=== PATIENT | female | born 1960 | race Caucasian/White ===

== ENCOUNTER → 2017-11-14 16:51 | Outpatient (CLI) | payer OTHER, SELFPAY ==
[2017-11-14 18:38] LABS: Thyroid Stim Hormone (TSH) 3.49 uIU/mL (0.358-3.74)
== END ==
PROVIDERS: Family Provider Family Medicine; PCP Family Medicine; Visit Provider Family Medicine
DX: E03.9 Hypothyroidism, unspecified (principal)
CPT/HCPCS: 36415; 84443

== ENCOUNTER → 2018-04-17 12:47 | Outpatient (CLI) | payer OTHER, SELFPAY ==
[2018-04-17 14:20] LABS: Absolute Lymphocyte Count 2.32 X10^3/ul (0.83-4.51); Absolute Neutrophil Count 4.4 X10^3/uL (2.0-7.7); Basophil# 0.06 X10^3/uL; Basophil% 0.8 % (0-1); Eosinophil# 0.15 X10^3/uL; Hematocrit 39.4 % (37-47); Hemoglobin 13.3 g/dl (12.0-15.0); Lymphocyte # 2.32 X10^3/ul (4.0); Lymphocyte % 30.2 % (19-41); Mean Corp Hgb Conc 33.8 g/gl (32-36); Mean Corpuscular Volume 94.7 fL (81-99); Mean Platelet Vol. 10.6 fl (6.2-12.0); Monocyte# 0.77 X10^3/uL; Neutrophil # 4.37 X10^3/uL (2.7-7.7); Neutrophil % 56.7 % (47-70); Platelet Count 285 K/mm3 (150-450); RBC Distribution Width CV 13.5 % (11.6-14.6); RBC Distribution Width SD 45.1 fl (35.1-43.9); Red Blood Count 4.16 M/mm3 (4.2-5.4); White Blood Count 7.7 K/mm3 (4.4-11.0)
[2018-04-17 14:29] LABS: POSITIVE COUNT NO; POSITIVE DIFFERENTIAL NO; POSITIVE MORPHOLOGY NO
[2018-04-17 14:39] LABS: ALB/GLOB Ratio 1.1 RATIO (0.9-2.4); AST(SGOT) 26 U/L (15-37); Alanine Aminotransfer ALT/SGPT 22 U/L (13-56); Albumin, Serum 4.2 g/dL (3.2-5.0); Alkaline Phosphatase 72 U/L (45-117); Anion Gap 8 (5-15); BUN 14 mg/dL (7-18); BUN/Creat Ratio 17.7 RATIO (10-20); Calcium,Total 9.2 mg/dL (8.5-10.1); Chloride 103 mmol/L (98-107); Creatinine, Serum 0.79 mg/dL (0.55-1.02); EST Glomerular Filtration Rate 79 mL/min (>60); Est Glom Filt Rate - Afr Amer 96 mL/min (>60); Globulin 3.7 g/dL (2.2-4.2); Glucose 104 mg/dL (74-106); Potassium 3.8 mmol/L (3.5-5.1); Protein, Total 7.9 g/dL (6.4-8.2); Sodium Level 140 mmol/L (136-145)
== END ==
PROVIDERS: Family Provider Family Medicine; PCP Family Medicine; Visit Provider Internal Medicine Rheumatology
DX: M06.4 Inflammatory polyarthropathy (principal); M18.11 Unilateral primary osteoarthritis of first carpometacarpal joint, right hand; E03.9 Hypothyroidism, unspecified; E78.5 Hyperlipidemia, unspecified
CPT/HCPCS: 36415; 80053; 85025

== ENCOUNTER → 2018-05-31 06:50 | Outpatient (CLI) | payer OTHER, SELFPAY ==
[2018-05-31 07:39] LABS: Cholesterol 225 mg/dL (200); High Density Lipoprotein 74 mg/dL; Triglycerides 130 mg/dL; Very Low Density Lipoprotein 26 mg/dL (5-40)
== END ==
PROVIDERS: Family Provider Family Medicine; PCP Family Medicine; Visit Provider Family Medicine
DX: E03.9 Hypothyroidism, unspecified (principal); E78.00 Pure hypercholesterolemia, unspecified
CPT/HCPCS: 36415; 80061; 84443

== ENCOUNTER 2018-06-20 05:51 | Day surgery (SDC) | payer OTHER, SELFPAY ==
[2018-06-20] VITALS (10 sets, daily range): BP systolic 115–128; BP diastolic 76–84; PULSE 61–82; RESP 16; TEMP 36.1–36.6; O2SAT 94–99; BMI 25.4
--- NOTE | 2018-06-20 | CER_PTH ---
PATIENT: PATTI [place]BELL [place] [facility] [place][id number] AGE/SX: 58/F ROOM: RE06/20/[address]: Dr. Herman Ramirez MD : [id number] BED: DIS: 06/20/2018 SPEC #: [id number] RECD: 06/20/18 12:47 STATUS: CARLIN GOLDEN #: [id number] TRUDY: 06/20/18 00:[address]: Herman Ramirez DEPT: SURGICAL PATHOLOGY RECD BY: Carlitos Butcher ENTERED: 06/20/18 12:47 SP TYPE: CERV OTHR DR: Dr. Adam Tate MD Tissues: A - Uterine cervix, NOS B - Endocervical Procedures: Surgery Specimen Level IV Surgery Specimen Level V HEADER OPERATION: Cold knife conization PRE-OP DIAGNOSIS: High grade squamous intraepithelial lesion TISSUE SUBMITTED: A ? Cervical cone biopsy, B ? Endocervical curettings MICROSCOPIC DIAGNOSIS A. Cervix, cone biopsy: Chronic inflammation. Negative for dysplasia. B. Endocervical curettings: Desquamated benign ecto- and endocervical epithelial cells, blood and mucous, negative for dysplasia. See comment. SJ:rg 06/21/18 COMMENT Clinical correlation and appropriate follow up are necessary. B. The specimen predominantly consists of blood and mucous. MICROSCOPIC DESCRIPTION Slides are reviewed. GROSS DESCRIPTION A - Received in fixative is one container labeled with the patient's name and designated cervical cone biopsy. The specimen consists of a piece of sheets, indurated tissue consistent with cone biopsy measuring 2.8 x 2.5 cm and up to 2 cm in length. The mucosa is congested. The nonmucosal surface is inked black. The endocervical margin is inked blue. No mass lesion is identified. The specimen is serially sectioned and submitted entirely in eight cassettes as follows: 1 & 2 ? one quadrant, 3 & 4 ? second quadrant, 5 & 6 ? third quadrant, 7 & 8 ? fourth quadrant. B - Received in fixative is one container labeled with the patient's name and designated endocervical curettings. The specimen consists of multiple fragments of hemorrhagic tissue mixed with blood clot that in aggregate measure 1.5 x 1 x 0.1 cm. The specimen is totally submitted in one cassette. / SINGH:zay 06/20/18 TC:3 CPT: 86623, 29963
--- NOTE | 2018-06-20 06:00 | EKG12_ITS ---
Test Reason : PRE-OP Blood Pressure : / mmHG Vent. Rate : 064 BPM Atrial Rate : 064 BPM P-R Int : 184 ms QRS Dur : 094 ms QT Int : 438 ms P-R-T Axes : 069 075 062 degrees QTc Int : 451 ms Normal sinus rhythm Nonspecific ST abnormality Abnormal ECG When compared with ECG of 14-SEP-2014 15:28, No significant change was found Confirmed by SLIM COWAN, TANVIR ([id number]), communications editor JONATHAN QUACH ([id number]) on 06/24/2018 4:01:37 PM Referred By: Herman Ramirez Confirmed By:TANVIR SMALLS MD
[2018-06-20 06:28] LABS: Hematocrit 36.4 % (37-47); Hemoglobin 12.2 g/dl (12.0-15.0); Mean Corp Hgb Conc 33.5 g/gl (32-36); Mean Corpuscular Hgb 31.3 pg (27.0-32.0); Mean Corpuscular Volume 93.3 fL (81-99); Platelet Count 266 K/mm3 (150-450); RBC Distribution Width CV 13.6 % (11.6-14.6); RBC Distribution Width SD 46.1 fl (35.1-43.9); White Blood Count 6.4 K/mm3 (4.4-11.0)
[2018-06-20 06:30] LABS: Scan Indicated on CBC? Y/N NO
[2018-06-20 06:46] LABS: ALB/GLOB Ratio 1.2 RATIO (0.9-2.4); AST(SGOT) 21 U/L (15-37); Alanine Aminotransfer ALT/SGPT 20 U/L (13-56); Albumin, Serum 3.8 g/dL (3.2-5.0); Alkaline Phosphatase 63 U/L (45-117); Anion Gap 8 (5-15); BUN 19 mg/dL (7-18); BUN/Creat Ratio 25.3 RATIO (10-20); Calcium,Total 9.2 mg/dL (8.5-10.1); Chloride 105 mmol/L (98-107); Creatinine, Serum 0.75 mg/dL (0.55-1.02); EST Glomerular Filtration Rate 83 mL/min (>60); Est Glom Filt Rate - Afr Amer 101 mL/min (>60); Estimated Creatinine Clearance 68.88 ml/min; Globulin 3.3 g/dL (2.2-4.2); Glucose 94 mg/dL (74-106); Potassium 3.3 mmol/L (3.5-5.1); Protein, Total 7.1 g/dL (6.4-8.2); Sodium Level 142 mmol/L (136-145)
[2018-06-20] MEDS: Bupiv/Epi 0.5% Mpf 30 ML Vial (07:42)
--- NOTE | 2018-06-20 08:33 | PCM.DC.D&C ---
Discharge Diet: No Restrictions Discharge Activity: Return to Normal Activity - AFTER 24 hours May resume sexual activity in: 4-6 weeks - after OK by Weight Bearing Status: Weight bearing as tolerated Call your doctor if your incision/area has: Increased Pain/ Swelling, Increased Redness, Foul Smelling Discharge, Swelling at the incision site Call your doctor if you observe: Fever of 101 or Higher, Coldness, Increased Pain, Numbness or Tingling, Change in Color, Inability to urinate, Inability to have a bowel movement, Using more than one pad per hour, Shortness of breath, Fainting spells, Chest pain, Increased palpitations (irregular heartbeat), Uncontrolled pain Additional Instructions: PROCEDURE: Cold Knife Conization of Cervix Allergies/Adverse Reactions: Allergies No Known Allergies Allergy (Verified 06/14/18 15:04) Medications to take at Discharge Atorvastatin Calcium [Lipitor] 10 mg PO QHS 06/14/18 Hydroxychloroquine Sulfate [Plaquenil] 200 mg PO BID 06/14/18 Levothyroxine [Synthroid] 125 mcg PO DAILY 06/14/18 Lisinopril/Hydrochlorothiazide [Zestoretic 20/12.5 Tablet] 1 tablet PO DAILY 06/14/18 Paroxetine HCl [Paxil] 25 mg PO DAILY 06/14/18 Primary Care Physician: Adam Tate MD [Primary Care Provider] - Test Results: Test results from this visit will be discussed in further detail at your follow-up appointment, if applicable.
--- NOTE | 2018-06-20 08:36 | DCINST_ITS ---
Discharge Diet: No Restrictions Discharge Activity: Return to Normal Activity - AFTER 24 hours May resume sexual activity in: 4-6 weeks - after OK by Weight Bearing Status: Weight bearing as tolerated Call your doctor if your incision/area has: Increased Pain/ Swelling, Increased Redness, Foul Smelling Discharge, Swelling at the incision site Call your doctor if you observe: Fever of 101 or Higher, Coldness, Increased Pain, Numbness or Tingling, Change in Color, Inability to urinate, Inability to have a bowel movement, Using more than one pad per hour, Shortness of breath, Fainting spells, Chest pain, Increased palpitations (irregular heartbeat), Uncontrolled pain Additional Instructions: PROCEDURE: Cold Knife Conization of Cervix Allergies/Adverse Reactions: Allergies No Known Allergies Allergy (Verified 06/14/18 15:04) Medications to take at Discharge Atorvastatin Calcium [Lipitor] 10 mg PO QHS 06/14/18 Hydroxychloroquine Sulfate [Plaquenil] 200 mg PO BID 06/14/18 Levothyroxine [Synthroid] 125 mcg PO DAILY 06/14/18 Lisinopril/Hydrochlorothiazide [Zestoretic 20/12.5 Tablet] 1 tablet PO DAILY 04/24 Paroxetine HCl [Paxil] 25 mg PO DAILY 06/14/18 Primary Care Physician: Adam Tate MD [Primary Care Provider] - Test Results: Test results from this visit will be discussed in further detail at your follow- up appointment, if applicable.
--- NOTE | 2018-06-20 08:36 | PCM.OPRPT ---
Report of Operation Date of Procedure: 06/20/18 Pre-Operative Diagnosis: RONALD 2 Post-Operative Diagnosis: RONALD 2 Surgery/Procedure Performed:: Cold knife conization of cervix with endocervical curettage Description of Surgical Findings:: None staining area of cervix after lugols placed consistent with cervical dysplasia Type of Anesthesia:: Local MAC Specimen's removed: Cervical cone, ECC Estimated Blood Loss (mL): 50ml Fluids Replaced: 900ml Description of Procedure: Patient taken to OR where MAC anesthesia placed. She was placed in the dorsal lithotomy position, prepped & draped. A tenaculum was used to grasp the anterior lip of cervix. Paracervical block given. Stay sutures placed on 3 & 9 o'clock. Lugols placed on cervix. Cervix incised circumferentially with a scalpel. Cervical cone completed with curved jon scissors. ECC performed. Roller ball cautery used to obtain excellent hemostasis. Stay sutures tied. Fibrillar placed to ensure continued hemostasis due to the large cervical cone site. At end of procedure all instruments removed from vaginal cavity. Vaginal sweep performed. Patient tolerated procedure well. - Complications None
[2018-06-20] MEDS: Acetaminophen/Codeine #3 Tablet 1 TABLET PO (10:02)
== END 2018-06-20 10:46 | disposition home or self-care (01) ==
LOC: SDC 05:52 → AC 05:53
PROVIDERS: Family Provider Family Medicine; PCP Family Medicine; Visit Provider Obstetrics & Gynecology
PROC: 0UBC7ZZ Excision of Cervix, Via Natural or Artificial Opening (ICD-10-PCS; CPT 57520; principal; 2018-06-20 07:15)
DX: N72 Inflammatory disease of cervix uteri (principal); E03.9 Hypothyroidism, unspecified; M19.90 Unspecified osteoarthritis, unspecified site; E78.00 Pure hypercholesterolemia, unspecified; F41.0 Panic disorder [episodic paroxysmal anxiety]; F32.9 Major depressive disorder, single episode, unspecified; Z86.2 Personal history of diseases of the blood and blood-forming organs and certain disorders involving the immune mechanism; Z79.899 Other long term (current) drug therapy; Z87.891 Personal history of nicotine dependence
CPT/HCPCS: 57520; 36415; 80053; 85027; 86850; 86900; 88305; 88307; 93005; J7120; J2405

== ENCOUNTER → 2019-02-27 14:16 | Outpatient (CLI) | payer OTHER, SELFPAY ==
[2019-02-27 09:39] VITALS: BMI 25.1
== END ==
PROVIDERS: Family Provider Family Medicine; PCP Family Medicine; Referring Provider Physician Assistant; Visit Provider Physician Assistant
DX: J20.9 Acute bronchitis, unspecified (principal)
CPT/HCPCS: 87081

== ENCOUNTER → 2019-06-18 | Outpatient (CLI) | payer OTHER, SELFPAY ==
[2019-02-27 09:39] VITALS: BMI 25.1
[2019-06-18 11:06] LABS: Anion Gap 4 (5-15); BUN 22 mg/dL (7-18); BUN/Creat Ratio 30.2 RATIO (10-20); Calcium,Total 9.6 mg/dL (8.5-10.1); Chloride 107 mmol/L (98-107); Cholesterol 251 mg/dL (200); Creatinine, Serum 0.73 mg/dL (0.55-1.02); EST Glomerular Filtration Rate 86 mL/min (>60); Est Glom Filt Rate - Afr Amer 104 mL/min (>60); Glucose 92 mg/dL (74-106); High Density Lipoprotein 72 mg/dL; Sodium Level 142 mmol/L (136-145); Thyroid Stim Hormone (TSH) 1.68 uIU/mL (0.358-3.74); Triglycerides 135 mg/dL; Very Low Density Lipoprotein 27 mg/dL (5-40)
== END | disposition home or self-care (01) ==
LOC: MTLAB 08:10
PROVIDERS: Family Provider Family Medicine; PCP Family Medicine; Referring Provider Family Medicine; Visit Provider Family Medicine
DX: E78.00 Pure hypercholesterolemia, unspecified (principal); E03.9 Hypothyroidism, unspecified; I10 Essential (primary) hypertension
CPT/HCPCS: 36415; 80048; 80061; 84443

== ENCOUNTER → 2020-04-19 | Outpatient (CLI) | payer OTHER, SELFPAY ==
[2019-02-27 09:39] VITALS: BMI 25.1
--- NOTE | 2020-04-19 12:25 | RAD_ITS ---
STUDY: X-RAY - LEFT HAND, ATTENTION FIRST FINGER REASON FOR EXAM: Female, 60 years old. pain to DIP joint TECHNIQUE: 3 view(s) of the finger were obtained. COMPARISON: None. FINDINGS: There are mild arthritic changes of the first metacarpal greater multangular joint, first metacarpophalangeal joint, and first interphalangeal joint. There is no evidence of fracture or dislocation. Soft tissues are unremarkable. RAD/Finger(s) Min 2 Views IMPRESSION: Degenerative joint disease, as described above. Electronically Signed: Lance Betancourt MD at 23:38 EDT , Service support ,
== END | disposition home or self-care (01) ==
LOC: MTRAD 12:24
PROVIDERS: Referring Provider Family Medicine; Visit Provider Family Medicine
DX: M79.645 Pain in left finger(s) (principal)
CPT/HCPCS: 73140

== ENCOUNTER → 2020-04-20 | Outpatient (CLI) | payer OTHER, SELFPAY ==
[2019-02-27 09:39] VITALS: BMI 25.1
[2020-04-20 09:53] LABS: Hematocrit 39.5 % (37-47); Hemoglobin 13.1 g/dL (12.0-15.0); Mean Corp Hgb Conc 33.2 g/dL (32-36); Mean Corpuscular Hgb 32.8 pg (27.0-32.0); Mean Corpuscular Volume 98.8 fL (81-99); Mean Platelet Vol. 10.8 fl (6.2-12.0); Platelet Count 338 K/mm3 (150-450); RBC Distribution Width CV 14.6 % (11.6-14.6); White Blood Count 12.3 K/mm3 (4.4-11.0)
[2020-04-20 10:27] LABS: AST(SGOT) 18 U/L (15-37); Alanine Aminotransfer ALT/SGPT 24 U/L (13-56); Albumin, Serum 3.8 g/dL (3.2-5.0); Alkaline Phosphatase 92 U/L (45-117); Anion Gap 7 (5-15); BUN 19 mg/dL (7-18); BUN/Creat Ratio 26.1 RATIO (10-20); Calcium,Total 9.3 mg/dL (8.5-10.1); Chloride 107 mmol/L (98-107); Cholesterol 274 mg/dL (200); Creatinine, Serum 0.73 mg/dL (0.55-1.02); EST Glomerular Filtration Rate 86 mL/min (>60); Est Glom Filt Rate - Afr Amer 104 mL/min (>60); Globulin 3.8 g/dL (2.2-4.2); Glucose 95 mg/dL (74-106); High Density Lipoprotein 98 mg/dL; Iron 121 ug/dL (50-170); Potassium 3.7 mmol/L (3.5-5.1); Protein, Total 7.6 g/dL (6.4-8.2); Sodium Level 142 mmol/L (136-145); T4 Free Direct 0.92 ng/dL (0.76-1.46); Thyroid Stim Hormone (TSH) 5.07 uIU/mL (0.358-3.74); Triglycerides 77 mg/dL; Very Low Density Lipoprotein 15 mg/dL (5-40)
[2020-04-21 07:41] LABS: SARS-COV-2 TOTAL ABS Nonreactive (Nonreactive)
== END | disposition home or self-care (01) ==
PROVIDERS: PCP Family Medicine; Referring Provider Family Medicine; Visit Provider Family Medicine
DX: D50.9 Iron deficiency anemia, unspecified (principal); E78.00 Pure hypercholesterolemia, unspecified; E03.9 Hypothyroidism, unspecified; I10 Essential (primary) hypertension
CPT/HCPCS: 80053; 80061; 83540; 84439; 84443; 85027; 86769; G2023

== ENCOUNTER → 2020-05-28 | Outpatient (CLI) | payer OTHER, SELFPAY ==
[2019-02-27 09:39] VITALS: BMI 25.1
[2020-05-28 17:29] LABS: Absolute Lymphocyte Count 3.09 X10^3/uL (0.83-4.51); Absolute Neutrophil Count 3.3 X10^3/uL (2.0-7.7); Basophil# 0.08 X10^3/uL; Basophil% 1.1 % (0-1); Eosinophil# 0.14 X10^3/uL; Eosinophils% 1.9 % (0-5); Hemoglobin 13.1 g/dL (12.0-15.0); Lymphocyte # 3.09 X10^3/ul (4.0); Mean Corp Hgb Conc 32.8 g/dL (32-36); Mean Corpuscular Hgb 32.4 pg (27.0-32.0); Mean Platelet Vol. 10.9 fl (6.2-12.0); Monocyte# 0.95 X10^3/uL; Monocyte% 12.6 % (0-10); NRBC Flagged by Analyzer 0 % (0-5); Neutrophil # 3.26 X10^3/uL (2.7-7.7); Neutrophil % 43.1 % (47-70); Platelet Count 331 K/mm3 (150-450); RBC Distribution Width CV 13.2 % (11.6-14.6); RBC Distribution Width SD 48.2 fl (35.1-43.9); Red Blood Count 4.04 M/mm3 (4.2-5.4); White Blood Count 7.5 K/mm3 (4.4-11.0)
[2020-05-28 17:57] LABS: ALB/GLOB Ratio 1.2 RATIO (0.9-2.4); AST(SGOT) 21 U/L (15-37); Alanine Aminotransfer ALT/SGPT 26 U/L (13-56); Albumin, Serum 4.1 g/dL (3.2-5.0); Alkaline Phosphatase 89 U/L (45-117); Anion Gap 3 (5-15); BUN 21 mg/dL (7-18); BUN/Creat Ratio 30.5 RATIO (10-20); CRP < 2.90 mg/L (0.0-3.0); Calcium,Total 9.3 mg/dL (8.5-10.1); Chloride 104 mmol/L (98-107); Creatinine, Serum 0.69 mg/dL (0.55-1.02); EST Glomerular Filtration Rate 92 mL/min (>60); Est Glom Filt Rate - Afr Amer 111 mL/min (>60); Globulin 3.5 g/dL (2.2-4.2); Glucose 84 mg/dL (74-106); Potassium 3.4 mmol/L (3.5-5.1); Protein, Total 7.6 g/dL (6.4-8.2); Sodium Level 139 mmol/L (136-145)
[2020-05-28 18:03] LABS: Erythrocyte Sedimentation Rate < 1 mm/hr (0-30)
== END | disposition home or self-care (01) ==
LOC: MTLAB 15:06
PROVIDERS: PCP Family Medicine; Referring Provider Internal Medicine Rheumatology; Visit Provider Internal Medicine Rheumatology
DX: M06.4 Inflammatory polyarthropathy (principal); M18.11 Unilateral primary osteoarthritis of first carpometacarpal joint, right hand; E03.9 Hypothyroidism, unspecified; E78.5 Hyperlipidemia, unspecified
CPT/HCPCS: 36415; 80053; 85025; 85652; 86140

== ENCOUNTER 2020-06-18 11:00 | Outpatient (RCR) | payer OTHER, SELFPAY ==
[2019-02-27 09:39] VITALS: BMI 25.1
--- NOTE | 2020-05-21 07:51 | HP.OTEVAL ---
Patient's Visit Information PATTI ISBELL is a 60 year old F, referred to Occupational Therapy by Dr. Adam Fonseca MD, with a diagnosis of left thumb OA/ left thumb pain. Date of Evaluation: 05/20/20 Occupational Therapist: Debora Mendes, AUGUSTOR/Anna, CHT - Subjective This 60 year old female was seen for OT eval was seen for dx of left thumb OA. pt has hx of Left wrist fx about 5 years ago with extensor tendon rupture with repiar. pt states 2 years ago a right CMC arthroplasty. left thumb pain 3 weeks ago after moving boxes and then spent 8 hours in car and she woke up from sleeping and had left thumb swelling- pt initially thought she was stung or bit by something. 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 - Pain left thumb 4 Pain Intensity Range: 7 - ROM CMC: right 10 left 20 MP: right40 left 35 IP: right 50 left 55 Radial Abduction: right 40 left 35 Opposition: right 10 left 10 - Edema Other: right IP 5.6 left 5.8 - Sensation Thumb: right/left 2.83 - Quick DASH-Disab of Arm,Shoulder& Hand Quick DASH Score: 28.3325 - Goals Goal:: pt will demo left thumb ROM equal to unaffected side to increase pts ind. with ADls and IADls Goal:: pt will report no pain greater that 1/10 following use of left hand with ADls and work tasks by d/c Goal:: pt will demo understanding of joint protection, ad. eq. use as needed to decrease stress on joints/tendons by end of 1st session Goal:: pt will demo ind. with joanna/doffing custom orthosis by end of 1st session. pt will demo understanding of using custom orthosis with heavy tasks, and watch for skin irritation by d/c - Rehabilitation General Assessment: Pt demo left thumb insability increasing pain at IP joint with work and ADL tasks. Pt would benefit from skilled OT services 1-2x week for 3 weeks to ensure ed. and joint protection to decrease pain. Today therapist jennie. short thumb spica distal to IP. ed. pt in use and precaustions. Therapist measured pt for spiral siver ring splint. pt to return once she recieves silver ring splint to ensure proper fit. Pt to return if custom orthosis needs adj. to increase comfort and use. pt demo understanding and agree to POC. Rehabilitation Potential: Good - Anticipated Interventions Modalities, Orthoses, Joint Protection/Energy Conservation, Ergonomic Education, Home Program - Visit Plan Frequency: 1-2x /Week Duration: 4-6 Weeks TEXT: Thank you for the opportunity to evaluate your patient. For Medicare and Medicare HMO plans, please review the plan of care and approve it. It will need to be FAXED BACK to us at [phone] for Medicare purposes. Please let me know if there are questions or concerns regarding this plan of care. Physician Signature: Date:
--- NOTE | 2020-09-07 13:24 | HP.OT.NRP ---
PATTI ISBELL was seen in my office for initial evaluation on 05/20/20. The following Plan of Care was established for this patient: Initial Frequency: 1-2x /Week Initial Duration: 4-6 Weeks Anticipated Interventions: Modalities, Orthoses, Joint Protection/Energy Conservation, Ergonomic Education, Home Program This patient was last seen in our office 06/18/20. Pertinent comments regarding their Occupational therapy will appear below: Pt was seen for two OT sessions and fitted for silver ring to provide support and protection while performing ADLS and work tasks. pt has not scheduled follow up session and due to time lapse in services pt d/c. At this point I will be discontinuing this patient from occupational therapy. I would be happy to see this patient again in the future if found appropriate by the physician. Thank you! Debora Mendes, OTR/L, CHT
== END 2020-06-18 19:00 | disposition home or self-care (01) ==
LOC: OT 11:00
PROVIDERS: PCP Family Medicine; Referring Provider Family Medicine; Visit Provider Family Medicine
DX: M19.042 Primary osteoarthritis, left hand (principal)
CPT/HCPCS: 97140; 97166; 97530; 97760; 97763

== ENCOUNTER → 2020-08-05 | Outpatient (CLI) | payer OTHER, SELFPAY ==
[2019-02-27 09:39] VITALS: BMI 25.1
[2020-08-05 10:48] LABS: Anion Gap 6 (5-15); BUN 17 mg/dL (7-18); BUN/Creat Ratio 23.9 RATIO (10-20); Calcium,Total 9.8 mg/dL (8.5-10.1); Chloride 105 mmol/L (98-107); Creatinine, Serum 0.71 mg/dL (0.55-1.02); EST Glomerular Filtration Rate 89 mL/min (>60); Est Glom Filt Rate - Afr Amer 107 mL/min (>60); Glucose 91 mg/dL (74-106); Potassium 3.5 mmol/L (3.5-5.1); Sodium Level 141 mmol/L (136-145); Thyroid Stim Hormone (TSH) 2.27 uIU/mL (0.358-3.74)
== END | disposition home or self-care (01) ==
PROVIDERS: PCP Family Medicine; Referring Provider Family Medicine; Visit Provider Family Medicine
DX: E03.9 Hypothyroidism, unspecified (principal); I10 Essential (primary) hypertension
CPT/HCPCS: 36415; 80048; 84443

== ENCOUNTER → 2020-10-13 07:15 | Outpatient (CLI) | payer OTHER, SELFPAY ==
[2019-02-27 09:39] VITALS: BMI 25.1
[2020-10-13 10:38] LABS: ALB/GLOB Ratio 1.1 RATIO (0.9-2.4); AST(SGOT) 22 U/L (15-37); Alanine Aminotransfer ALT/SGPT 31 U/L (13-56); Albumin, Serum 3.9 g/dL (3.2-5.0); Alkaline Phosphatase 98 U/L (45-117); Anion Gap 4 (5-15); BUN 20 mg/dL (7-18); BUN/Creat Ratio 28.8 RATIO (10-20); Calcium,Total 9.5 mg/dL (8.5-10.1); Chloride 102 mmol/L (98-107); EST Glomerular Filtration Rate 91 mL/min (>60); Est Glom Filt Rate - Afr Amer 110 mL/min (>60); Globulin 3.6 g/dL (2.2-4.2); Glucose 92 mg/dL (74-106); Potassium 3.7 mmol/L (3.5-5.1); Protein, Total 7.5 g/dL (6.4-8.2); Sodium Level 140 mmol/L (136-145)
[2020-10-13 11:31] LABS: Absolute Lymphocyte Count 2.66 X10^3/uL (0.83-4.51); Absolute Neutrophil Count 2.5 X10^3/uL (2.0-7.7); Basophil# 0.06 X10^3/uL; Eosinophil# 0.28 X10^3/uL; Eosinophils% 4.4 % (0-5); Hematocrit 41.2 % (37-47); Hemoglobin 13.4 g/dL (12.0-15.0); Lymphocyte # 2.66 X10^3/ul (4.0); Lymphocyte % 42.2 % (19-41); Mean Corp Hgb Conc 32.5 g/dL (32-36); Mean Corpuscular Hgb 31.6 pg (27.0-32.0); Mean Corpuscular Volume 97.2 fL (81-99); Mean Platelet Vol. 10.9 fl (6.2-12.0); Monocyte# 0.75 X10^3/uL; Monocyte% 11.9 % (0-10); NRBC Flagged by Analyzer 0 % (0-5); Neutrophil # 2.54 X10^3/uL (2.7-7.7); Neutrophil % 40.3 % (47-70); Platelet Count 373 K/mm3 (150-450); RBC Distribution Width CV 12.3 % (11.6-14.6); RBC Distribution Width SD 44.3 fl (35.1-43.9); Red Blood Count 4.24 M/mm3 (4.2-5.4); White Blood Count 6.3 K/mm3 (4.4-11.0)
== END ==
PROVIDERS: PCP Family Medicine; Referring Provider Internal Medicine Rheumatology; Visit Provider Internal Medicine Rheumatology
DX: M06.4 Inflammatory polyarthropathy (principal); M18.11 Unilateral primary osteoarthritis of first carpometacarpal joint, right hand; E03.9 Hypothyroidism, unspecified; E78.5 Hyperlipidemia, unspecified
CPT/HCPCS: 36415; 80053; 85025

== ENCOUNTER → 2021-04-14 09:45 | Outpatient (CLI) | payer OTHER, SELFPAY ==
[2019-02-27 09:39] VITALS: BMI 25.1
[2021-04-14 12:26] LABS: Absolute Lymphocyte Count 1.84 X10^3/uL (0.83-4.51); Absolute Neutrophil Count 3.5 X10^3/uL (2.0-7.7); Basophil# 0.04 X10^3/uL; Basophil% 0.6 % (0-1); Eosinophil# 0.31 X10^3/uL; Eosinophils% 4.9 % (0-5); Hematocrit 40.9 % (37-47); Hemoglobin 13.7 g/dL (12.0-15.0); Lymphocyte # 1.84 X10^3/ul (0.83-4.51); Lymphocyte % 28.9 % (19-41); Mean Corp Hgb Conc 33.5 g/dL (32-36); Mean Corpuscular Hgb 33.1 pg (27.0-32.0); Mean Corpuscular Volume 98.8 fL (81-99); Mean Platelet Vol. 10.8 fl (6.2-12.0); Monocyte# 0.64 X10^3/uL; Monocyte% 10.1 % (0-10); NRBC Flagged by Analyzer 0 % (0-5); Neutrophil # 3.52 X10^3/uL (2.7-7.7); Neutrophil % 55.3 % (47-70); Platelet Count 347 K/mm3 (150-450); RBC Distribution Width CV 13.2 % (11.6-14.6); RBC Distribution Width SD 48.2 fl (35.1-43.9); Red Blood Count 4.14 M/mm3 (4.2-5.4); White Blood Count 6.4 K/mm3 (4.4-11.0)
[2021-04-14 13:12] LABS: ALB/GLOB Ratio 1.1 RATIO (0.9-2.4); AST(SGOT) 20 U/L (15-37); Alanine Aminotransfer ALT/SGPT 23 U/L (13-56); Albumin, Serum 3.9 g/dL (3.2-5.0); Alkaline Phosphatase 94 U/L (45-117); Anion Gap 8 (5-15); BUN 24 mg/dL (7-18); BUN/Creat Ratio 34.5 RATIO (10-20); Calcium,Total 9.5 mg/dL (8.5-10.1); Chloride 101 mmol/L (98-107); EST Glomerular Filtration Rate 91 mL/min (>60); Est Glom Filt Rate - Afr Amer 110 mL/min (>60); Globulin 3.7 g/dL (2.2-4.2); Glucose 77 mg/dL (74-106); Potassium 3.6 mmol/L (3.5-5.1); Protein, Total 7.6 g/dL (6.4-8.2); Sodium Level 141 mmol/L (136-145)
[2021-04-14 13:41] LABS: Cholesterol 240 mg/dL (200); Ferritin 26 ng/mL (8-252); High Density Lipoprotein 89 mg/dL; Thyroid Stim Hormone (TSH) 1.51 uIU/mL (0.358-3.74); Triglycerides 109 mg/dL; Very Low Density Lipoprotein 22 mg/dL (5-40)
== END ==
PROVIDERS: PCP Family Medicine; Referring Provider Internal Medicine Rheumatology; Visit Provider Internal Medicine Rheumatology
DX: M06.4 Inflammatory polyarthropathy (principal); M15.9 Polyosteoarthritis, unspecified; E03.9 Hypothyroidism, unspecified; I10 Essential (primary) hypertension; E78.5 Hyperlipidemia, unspecified; Z86.39 Personal history of other endocrine, nutritional and metabolic disease
CPT/HCPCS: 36415; 80053; 80061; 82728; 84443; 85025

== ENCOUNTER 2021-12-08 08:43 | Outpatient (CLI) | payer OTHER, SELFPAY ==
[2021-12-08 10:31] LABS: Absolute Lymphocyte Count 2.23 X10^3/uL (0.83-4.51); Absolute Neutrophil Count 3.3 X10^3/uL (2.0-7.7); Basophil# 0.05 X10^3/uL; Basophil% 0.8 % (0-1); Eosinophil# 0.18 X10^3/uL; Eosinophils% 2.7 % (0-5); Hematocrit 40.8 % (37-47); Hemoglobin 14.1 g/dL (12.0-15.0); Lymphocyte # 2.23 X10^3/ul (0.83-4.51); Lymphocyte % 33.9 % (19-41); Mean Corp Hgb Conc 34.6 g/dL (32-36); Mean Corpuscular Hgb 34.9 pg (27.0-32.0); Mean Platelet Vol. 10.8 fl (6.2-12.0); Monocyte# 0.77 X10^3/uL; Monocyte% 11.7 % (0-10); NRBC Flagged by Analyzer 0 % (0-5); Neutrophil # 3.34 X10^3/uL (2.7-7.7); Neutrophil % 50.7 % (47-70); Platelet Count 300 K/mm3 (150-450); RBC Distribution Width CV 13.1 % (11.6-14.6); Red Blood Count 4.04 M/mm3 (4.2-5.4); White Blood Count 6.6 K/mm3 (4.4-11.0)
[2021-12-08 10:43] LABS: ALB/GLOB Ratio 1.1 RATIO (0.9-2.4); AST(SGOT) 23 U/L (15-37); Alanine Aminotransfer ALT/SGPT 28 U/L (13-56); Alkaline Phosphatase 91 U/L (45-117); Anion Gap 3 (5-15); BUN 22 mg/dL (7-18); BUN/Creat Ratio 32.1 RATIO (10-20); Calcium,Total 9.6 mg/dL (8.5-10.1); Chloride 104 mmol/L (98-107); Creatinine, Serum 0.69 mg/dL (0.55-1.02); EST Glomerular Filtration Rate 92 mL/min (>60); Est Glom Filt Rate - Afr Amer 111 mL/min (>60); Globulin 3.6 g/dL (2.2-4.2); Glucose 109 mg/dL (74-106); Potassium 3.9 mmol/L (3.5-5.1); Protein, Total 7.6 g/dL (6.4-8.2); Sodium Level 139 mmol/L (136-145)
== END 2021-12-08 23:59 | disposition home or self-care (01) ==
PROVIDERS: PCP Family Medicine; Referring Provider Internal Medicine Rheumatology; Visit Provider Internal Medicine Rheumatology
DX: M06.4 Inflammatory polyarthropathy (principal); M15.9 Polyosteoarthritis, unspecified; E03.9 Hypothyroidism, unspecified; I10 Essential (primary) hypertension; E78.5 Hyperlipidemia, unspecified; Z79.899 Other long term (current) drug therapy
CPT/HCPCS: 36415; 80053; 85025

== ENCOUNTER → 2022-06-21 | Outpatient (CLI) | payer OTHER, SELFPAY ==
[2022-06-21 10:25] LABS: Microalbumin,Random Urine 19.8 mg/L (NO RANGE EST.); Microalbumin:Creatinine Ratio 8.2 mg/g CRE (<30 mg/g CRE)
[2022-06-21 10:42] LABS: AST(SGOT) 25 U/L (15-37); Alanine Aminotransfer ALT/SGPT 31 U/L (13-56); Anion Gap 7 (5-15); BUN 19 mg/dL (7-18); BUN/Creat Ratio 24.4 RATIO (10-20); Calcium,Total 10.1 mg/dL (8.5-10.1); Chloride 104 mmol/L (98-107); Cholesterol 246 mg/dL (200); Creatinine, Serum 0.78 mg/dL (0.55-1.02); EST Glomerular Filtration Rate 79 mL/min (>60); Est Glom Filt Rate - Afr Amer 96 mL/min (>60); Glucose 119 mg/dL (74-106); High Density Lipoprotein 78 mg/dL; Potassium 3.8 mmol/L (3.5-5.1); Sodium Level 141 mmol/L (136-145); T4 Total, Thyroxin 10.5 ug/dL (4.8-13.9); Thyroid Stim Hormone (TSH) 1.74 uIU/mL (0.358-3.74); Triglycerides 139 mg/dL; Very Low Density Lipoprotein 28 mg/dL (5-40)
== END | disposition home or self-care (01) ==
LOC: MTLAB 08:27
PROVIDERS: PCP Family Medicine; Referring Provider Family Medicine; Visit Provider Family Medicine
DX: E78.00 Pure hypercholesterolemia, unspecified (principal); I10 Essential (primary) hypertension; E03.9 Hypothyroidism, unspecified
CPT/HCPCS: 36415; 80048; 80061; 82043; 82570; 84436; 84443; 84450; 84460

== ENCOUNTER → 2022-08-02 | Outpatient (CLI) | payer OTHER, SELFPAY ==
[2022-08-02 10:05] LABS: Absolute Lymphocyte Count 2.71 X10^3/uL (0.83-4.51); Absolute Neutrophil Count 3.5 X10^3/uL (2.0-7.7); Basophil# 0.06 X10^3/uL; Basophil% 0.8 % (0-1); Eosinophil# 0.21 X10^3/uL; Eosinophils% 2.8 % (0-5); Hematocrit 39.9 % (37-47); Hemoglobin 13.9 g/dL (12.0-15.0); Lymphocyte # 2.71 X10^3/ul (0.83-4.51); Lymphocyte % 36.4 % (19-41); Mean Corp Hgb Conc 34.8 g/dL (32-36); Mean Corpuscular Hgb 35.8 pg (27.0-32.0); Mean Corpuscular Volume 102.8 fL (81-99); Mean Platelet Vol. 10.9 fl (6.2-12.0); Monocyte# 0.93 X10^3/uL; Monocyte% 12.5 % (0-10); NRBC Flagged by Analyzer 0 % (0-5); Neutrophil # 3.52 X10^3/uL (2.7-7.7); Neutrophil % 47.4 % (47-70); Platelet Count 328 K/mm3 (150-450); RBC Distribution Width CV 12.6 % (11.6-14.6); RBC Distribution Width SD 47.2 fl (35.1-43.9); Red Blood Count 3.88 M/mm3 (4.2-5.4); White Blood Count 7.4 K/mm3 (4.4-11.0)
[2022-08-02 10:41] LABS: ALB/GLOB Ratio 1.1 RATIO (0.9-2.4); AST(SGOT) 25 U/L (15-37); Alanine Aminotransfer ALT/SGPT 31 U/L (13-56); Albumin, Serum 3.9 g/dL (3.2-5.0); Alkaline Phosphatase 92 U/L (45-117); Anion Gap 6 (5-15); BUN 21 mg/dL (7-18); BUN/Creat Ratio 30.5 RATIO (10-20); Calcium,Total 10.1 mg/dL (8.5-10.1); Chloride 104 mmol/L (98-107); Creatinine, Serum 0.69 mg/dL (0.55-1.02); EST Glomerular Filtration Rate 91 mL/min (>60); Est Glom Filt Rate - Afr Amer 110 mL/min (>60); Globulin 3.5 g/dL (2.2-4.2); Glucose 102 mg/dL (74-106); Potassium 3.3 mmol/L (3.5-5.1); Protein, Total 7.4 g/dL (6.4-8.2); Sodium Level 138 mmol/L (136-145)
== END | disposition home or self-care (01) ==
LOC: MTLAB 07:42
PROVIDERS: PCP Family Medicine; Referring Provider Internal Medicine Rheumatology; Visit Provider Internal Medicine Rheumatology
DX: M06.4 Inflammatory polyarthropathy (principal); M15.9 Polyosteoarthritis, unspecified; E03.9 Hypothyroidism, unspecified; I10 Essential (primary) hypertension; E78.5 Hyperlipidemia, unspecified; Z79.899 Other long term (current) drug therapy
CPT/HCPCS: 36415; 80053; 85025

== ENCOUNTER → 2023-03-16 | Outpatient (CLI) | payer MEDICARE, OTHER, SELFPAY ==
[2023-03-16 15:39] LABS: Absolute Lymphocyte Count 2.11 X10^3/uL (0.83-4.51); Basophil# 0.06 X10^3/uL; Eosinophil# 0.19 X10^3/uL; Eosinophils% 3.1 % (0-5); Hematocrit 40.2 % (37-47); Hemoglobin 13.6 g/dL (12.0-15.0); Lymphocyte # 2.11 X10^3/ul (0.83-4.51); Lymphocyte % 34.5 % (19-41); Mean Corp Hgb Conc 33.8 g/dL (32-36); Mean Corpuscular Hgb 35.1 pg (27.0-32.0); Mean Corpuscular Volume 103.9 fL (81-99); Mean Platelet Vol. 10.8 fl (6.2-12.0); Monocyte% 13.1 % (0-10); NRBC Flagged by Analyzer 0 % (0-5); Neutrophil # 2.96 X10^3/uL (2.7-7.7); Neutrophil % 48.3 % (47-70); Platelet Count 300 K/mm3 (150-450); RBC Distribution Width CV 14.7 % (11.6-14.6); RBC Distribution Width SD 56.9 fl (35.1-43.9); Red Blood Count 3.87 M/mm3 (4.2-5.4); White Blood Count 6.1 K/mm3 (4.4-11.0)
[2023-03-16 16:04] LABS: ALB/GLOB Ratio 1.1 RATIO (0.9-2.4); AST(SGOT) 25 U/L (15-37); Alanine Aminotransfer ALT/SGPT 36 U/L (13-56); Albumin, Serum 3.9 g/dL (3.2-5.0); Alkaline Phosphatase 91 U/L (45-117); Anion Gap 4 (5-15); BUN 16 mg/dL (7-18); Calcium,Total 10.1 mg/dL (8.5-10.1); Chloride 106 mmol/L (98-107); Creatinine, Serum 0.73 mg/dL (0.55-1.02); EST Glomerular Filtration Rate 86 mL/min (>60); Est Glom Filt Rate - Afr Amer 104 mL/min (>60); Globulin 3.7 g/dL (2.2-4.2); Glucose 101 mg/dL (74-106); Potassium 4.1 mmol/L (3.5-5.1); Protein, Total 7.6 g/dL (6.4-8.2); Sodium Level 139 mmol/L (136-145)
== END | disposition home or self-care (01) ==
LOC: MTLAB 12:00
PROVIDERS: PCP Family Medicine; Referring Provider Internal Medicine Rheumatology; Visit Provider Internal Medicine Rheumatology
DX: M06.4 Inflammatory polyarthropathy (principal); M15.9 Polyosteoarthritis, unspecified; E03.9 Hypothyroidism, unspecified; I10 Essential (primary) hypertension; E78.5 Hyperlipidemia, unspecified; Z79.899 Other long term (current) drug therapy
CPT/HCPCS: 36415; 80053; 85025

== ENCOUNTER → 2023-10-24 | Outpatient (CLI) | payer MEDICARE, OTHER, SELFPAY ==
--- OUTSIDE RECORDS SUMMARY | 2023-10-24 07:24 | XMS RPT_ITS | CCD ---
Author Name Unknown Address [address] [place] [address] Organization [facility] Care Team Providers Care Corporate Communications Intern Name Role Phone Carlos Quach MD Primary Care Provider [phone] CARLOS QUACH Primary Care Unavailable LEISA DOCKERY Attending Unavailable CARLOS QUACH Primary Care Unavailable LEISA DOCKERY Referring Unavailable LEISA DOCKERY Referring Unavailable CARLOS QUACH Primary Care Unavailable LEISA DOCKERY Referring Unavailable CARLOS QUACH Primary Care Unavailable MARYJANE HUNTLEY Attending Unavailable CARLOS QUACH Primary Care Unavailable Carlos Quach MD Primary Care Provider Allergies Allergy Classification Reported Allergen(s) Allergy Type Date of Onset Reaction(s) Facility (8 sources) Calamine / pramoxine; Translations: [PRAMOXINE-CALAMI NE] Drug Allergy 08-10-2006 [facility] Work Phone: Medications Completed/Discontinued Medications Medication Drug Class(es) Dates Sig (Normalized) Sig (Original) atorvastatin 10 mg oral tablet (7 sources) HMG-CoA Reductase Inhibitor Start: 02-13-2013 take 1 tablet by mouth once daily atorvastatin (LIPITOR) 10 mg tablet Take 1 tablet by mouth once daily. 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] Chronic Deficiency and other anemia (7 sources) Iron deficiency anemia; Translations: [Iron deficiency anemia, unspecified] 08-18-2005 Episodic Deficiency and other anemia (7 sources) Anemia; Translations: [Anemia, unspecified] 09-08-2009 Episodic Disorders of lipid metabolism (7 sources) Pure hypercholesterolemia ; Translations: [Pure hypercholesterolemia , unspecified] 08-18-2005 Chronic Gastrointestinal hemorrhage (7 sources) Rectal hemorrhage; Translations: [Hemorrhage of anus and rectum] 09-08-2009 Episodic Hemorrhoids (7 sources) Internal hemorrhoids; Translations: [Other hemorrhoids] 12-01-2005 Episodic Immunizations and screening for infectious disease (5 sources) Patient encounter status; Translations: [Encounter for screening for human papillomavirus (HPV)] Episodic Osteoarthritis (7 sources) Arthropathy of joint of hand; Translations: [Primary osteoarthritis, unspecified hand] Onset: 12-06-2011 12-06-2011 Chronic Other screening for suspected conditions (not mental disorders or infectious disease) (11 sources) Mammography abnormal; Translations: [Other abnormal and inconclusive findings on diagnostic imaging of breast] Onset: 06-03-2007 06-03-2007 Episodic Otitis media and related conditions (7 sources) Chronic serous otitis media; Translations: [Chronic serous otitis media, unspecified ear] 08-18-2005 Chronic Thyroid disorders (7 sources) Hypothyroidism; Translations: [Hypothyroidism, unspecified] 09-08-2009 Chronic Past or Other Problems Problem Classification Problem Date Documented Date Episodic/Chronic Cancer of cervix (9 sources) Atypical squamous cells of undetermined significance on cervical Papanicolaou smear; Translations: [Atypical squamous cells of undetermined significance on cytologic smear of cervix (ASC-US)] Onset: 08-13-2020 08-13-2020 Episodic Contraceptive and procreative management (7 sources) Intrauterine contraceptive device in situ; Translations: [Encounter for routine checking of intrauterine contraceptive device] Onset: 05-03-2010 05-03-2010 Episodic Results Test Name Value Interpretation Reference Range Facil ity Vital Signs Date Time Vital Sign Value Performing Clinician Concha cornelius 09-05-2022 09:21-0500 Body weight 73.48 kg Maryjane Huntley MD Work Phone: [facility] 09-05-2022 09:21-0500 Diastolic blood pressure 82 mm[Hg] Maryjane Huntley MD Work Phone: [facility] 09-05-2022 09:21-0500 Systolic blood pressure 120 mm[Hg] Maryjane Huntley MD Work Phone: [facility] 08-15-2022 08:02-0500 Body height 163.8 cm Leisa Dockery APRN.FINANCIAL LEGAL ASSISTANT Work Phone: [facility] 08-15-2022 08:02-0500 Body weight 73.03 kg Leisa Dockery APRN.FINANCIAL LEGAL ASSISTANT Work Phone: [facility] 08-15-2022 08:02-0500 Diastolic blood pressure 84 mm[Hg] Leisa Dockery APRN.FINANCIAL LEGAL ASSISTANT Work Phone: [facility] 08-15-2022 08:02-0500 Systolic blood pressure 122 mm[Hg] Leisa Dockery APRN.FINANCIAL LEGAL ASSISTANT Work Phone: [facility] Encounters Encounter Date Encounter Type Care Provider Facility Start: 02-07-2023 End: 02-07-2023 ambulatory [facility] Facility:[facility] Start: 02-07-2023 End: 02-07-2023 Subsequent hospital visit by physician [facility] Work Phone: Radiology Procedures Date Procedure Procedure Detail Performing Clinician Start: 02-07-2023 Us breast uni real t mirian with image limited Leisa Dockery APRN.FINANCIAL LEGAL ASSISTANT Work Phone: Start: 02-07-2023 Digital breast tomosynthesis unilateral Leisa Dockery APRN.FINANCIAL LEGAL ASSISTANT Work Phone: Start: 12-11-2022 Screening mammograph y bi 2-view breast inc cad Leisa Dockery APRN.FINANCIAL LEGAL ASSISTANT Work Phone: Start: 11-04-2021 Mammography Leisa price APRN.FINANCIAL LEGAL ASSISTANT Work Phone: Start: 04-12-2018 Colonoscopy Leisa price APRN.FINANCIAL LEGAL ASSISTANT Work Phone: Plan of Treatment Date Care Activity Detail Author Start: 09-28-2028 Urine microalbumin profile [facility] Start: 08-15-2027 HPV TESTING HPV TESTING [facility] Start: 08-15-2027 PAP TESTING PAP TESTING [facility] Start: 08-12-2026 HPV TESTING HPV TESTING [facility] Start: 08-12-2026 PAP TESTING PAP TESTING [facility] Start: 12-12-2023 Mammography Mammogram Screening [facility] Start: 06-08-2023 Covid-19 Vaccine ( season) Covid-19 Vaccine ( season) [facility] Start: 06-08-2023 Influenza vaccination [facility] (#[facility]) [facility] Start: 04-12-2023 Colonoscopy COLONOSCOPY [facility] Start: 04-12-2023 COLORECTAL CANCER SCREENING COLORECTAL CANCER SCREENING [facility] Start: 2023 Advance Directive Discussion Advance Directive Discussion [facility] Start: 2023 Bone Density Screening Bone Density Screening [facility] Start: 2023 Pneumococcal Vaccine: 65+ (2 - PCV) Pneumococcal Vaccine: 65+ (2 - PCV) [facility] Start: 11-04-2022 Mammography MAMMOGRAM [facility] Start: 10-08-2022 Depression Assessment Depression Assessment [facility] Start: 10-08-2021 DEPRESSION ASSESSMENT DEPRESSION ASSESSMENT [facility] Start: 08-06-2021 PNEUMOCOCCAL (2 - PCV) PNEUMOCOCCAL (2 - PCV) [facility] Start: 2018 RSV Vaccine (1 - 1-dose 60+ series) RSV Vaccine (1 - 1-dose 60+ series) [facility] Start: 09-08-2010 FECAL OCCULT BLOOD FECAL OCCULT BLOOD [facility] Start: 2003 COLOGUARD (FIT-DNA) COLOGUARD (FIT-DNA) [facility] Start: [address] COLONOGRAPHY [facility] Start: 2003 DIABETES SCREEN DIABETES SCREEN [facility] Start: 2003 Diabetes Screening Diabetes Screening [facility] Start: 2003 Lipid 1996 panel - Serum or Plasma Lipid Screening [facility] Start: 2003 LIPID SCREEN LIPID SCREEN [facility] Start: 2003 SIGMOIDOSCOPY SIGMOIDOSCOPY [facility] Start: 1976 ANNUAL PCP TEAM CHRONIC DISEASE VISIT ANNUAL PCP TEAM CHRONIC DISEASE VISIT [facility] Start: 1976 HEPATITIS C SCREENING HEPATITIS C SCREENING [facility] Start: 1976 HIV SCREENING HIV SCREENING [facility] COLPOSCOPY COLPOSCOPY Proce dures Routine ASCUS with positive high risk HPV cervical Ordered: 08/22/2022 [facility] Work Phone: Immunizations Immunization Date Immunization Notes Care Provider Araceli laurent 07-01-2022 influenza, injectabl e, quadrivalent, preservative free Maryjane Huntley MD Work Phone: [facility] Work Phone: 07-01-2022 influenza virus vacc ine, unspecified formulation [facility] Work Phone: [facility] 06-25-2021 influenza, injectabl e, quadrivalent, preservative free Maryjane Huntley MD Work Phone: [facility] Work Phone: 03-18-2021 Human Papillomavirus 9-valent vaccine Leisa Dockery APRN.FINANCIAL LEGAL ASSISTANT Work Phone: [facility] 11-17-2020 Human Papillomavirus 9-valent vaccine Leisa Dockery APRN.FINANCIAL LEGAL ASSISTANT Work Phone: [facility] 11-10-2020 COVID-19 original vaccine, full dose, monovalent (MODERNA) Leisa Dockery APRN.FINANCIAL LEGAL ASSISTANT Work Phone: [facility] 10-15-2020 COVID-19 original vaccine, full dose, monovalent (MODERNA) Leisa Dockery APRN.FINANCIAL LEGAL ASSISTANT Work Phone: [facility] 10-07-2020 zoster vaccine recombinant Leisa Dockery APRN.FINANCIAL LEGAL ASSISTANT Work Phone: [facility] 09-17-2020 Human Papillomavirus 9-valent vaccine Leisa Dockery APRN.FINANCIAL LEGAL ASSISTANT Work Phone: [facility] Work Phone: 08-06-2020 pneumococcal polysaccharide vaccine, 23 valent Leisa Dockery APRN.FINANCIAL LEGAL ASSISTANT Work Phone: [facility] 08-06-2020 zoster vaccine recombinant Leisa Dockery APRN.FINANCIAL LEGAL ASSISTANT Work Phone: [facility] 06-23-2020 influenza virus vacc ine, unspecified formulation Leisa Dockery APRN.FINANCIAL LEGAL ASSISTANT Work Phone: [facility] 06-21-2020 influenza, injectabl e, quadrivalent, preservative free Leisa Dockery LADDER OPERATOR.FINANCIAL LEGAL ASSISTANT Work Phone: [facility] 07-01-2019 influenza, injectabl e, quadrivalent, preservative free Leisa Dockery LADDER OPERATOR.FINANCIAL LEGAL ASSISTANT Work Phone: [facility] 09-28-2018 tetanus toxoid, redu maxime diphtheria toxoid, and acellular pertussis vaccine, adsorbed Leisa Dockery LADDER OPERATOR.FINANCIAL LEGAL ASSISTANT Work Phone: [facility] 07-14-2018 influenza, injectabl e, quadrivalent, preservative free Leisa Dockery LADDER OPERATOR.FINANCIAL LEGAL ASSISTANT Work Phone: [facility] 10-08-2017 zoster vaccine recombinant Leisa Dockery LADDER OPERATOR.FINANCIAL LEGAL ASSISTANT Work Phone: [facility] 05-12-2016 tetanus toxoid, redu maxime diphtheria toxoid, and acellular pertussis vaccine, adsorbed Leisa Dockery LADDER OPERATOR.FINANCIAL LEGAL ASSISTANT Work Phone: [facility] 07-03-2014 influenza, seasonal, injectable Leisa Dockery LADDER OPERATOR.FINANCIAL LEGAL ASSISTANT Work Phone: [facility] 02-07-2014 zoster vaccine, live Leisa Gut hrie LADDER OPERATOR.FINANCIAL LEGAL ASSISTANT Work Phone: [facility] 08-04-2009 novel influenza-H1N1 -09, preservative-free, injectable Leisa Dockery LADDER OPERATOR.FINANCIAL LEGAL ASSISTANT Work Phone: [facility] 04-07-1997 measles, mumps and rubella virus vaccine Leisa Dockery LADDER OPERATOR.[facility] Work Phone: [facility] Payers Date Payer Category Payer Private Health Insurance [facility] [id number] 2021-Present [phone] [address] [place] [address] O [id number] 2021 Unknown [id number] Social History Date Type Detail Facility Start: 08-15-2022 Tobacco smoking status NHIS Never smoked tobacco [facility] Work Phone: Start: 08-15-2022 Tobacco use and exposure Smokeless tobacco non-user [facility] Work Phone: Start: 08-15-2022 End: 09-05-2022 Alcohol intake Current drinker of alcohol (finding) [facility] Start: 08-06-2020 History SDOH Social Connections Phone 2 [facility] Start: 08-06-2020 History SDOH Social Connections Yazidi 3 [facility] Start: 08-06-2020 History SDOH Social Connections Meetings 1 [facility] Start: 08-06-2020 History SDOH Financial 5 [facility] Start: 08-06-2020 Education 20 [facility] Start: 07-25-2013 Alcohol Comment Occasionally [facility] Start: 1960 Sex Assigned At Not on file [facility] Start: 08-06-2020 End: 02-07-2023 History of Social function [facility] Work Phone: Start: 08-06-2020 End: 02-07-2023 Social connection and isolation panel [facility] Work Phone: Do you belong to any clubs or organizations such as congregational groups, unions, fraternal or athletic groups, or school groups? No [facility] Work Phone: Are you now , , , , never or living with a partner? [facility] Work Phone: How hard is it for y ou to pay for the very basics like food, housing, medical care, and heating Not hard at all [facility] Work Phone: Do you feel stress - tense, restless, nervous, or anxious, or unable to sleep at night because your mind is troubled all the time - these days [OSQ] Not at all [facility] Work Phone: (I/We) worried whegabrielle er (my/our) food would run out before (I/we) got money to buy more. Never true [facility] Work Phone: Start: 08-10-2021 Gender identity Identifies as female gender (finding) [facility] Start: 10-29-2021 Sexual orientation Heterosexual (finding) [facility] Clinical Notes 05-03-2010 to 02-07-2023 Divine Tompkins RDMS - 02/07/2023 3:30 PM Joana Martinez RT(R) - 02/07/2023 3:00 PM Ashia Bird RT(R) - 12/11/2022 9:50 AM Caesar Huntley MD - 09/05/2022 9:14 AM EST Note Date & Type Note Facility 02-07-2023 Note HNO ID: [id number] Author: Divine Tompkins RDMS Service: ? Author Type: Siding Mechanic Type: Progress Notes Filed: 02/07/2023 3:42 PM Note Text: Radiology Service Progress Note PATIENT NAME: Noelle Reyes DATE OF SERVICE: February 07, 2023 TIME: 3:42 PM PATIENT IDENTITY VERIFICATION COMPLETED USING TWO (2) IDENTIFIERS: Name and Date of confirmed by patient verbally. FALL SCREENING: Has the patient had 2 falls in the last year or 1 fall with injury or currently using an Ambulatory Assistive Device (Walker, Cane, Wheelchair, Crutches, etc.)? No PATIENT GENDER DATA: Female. status: : No status: NO. PATIENT RELEVANT IMPLANT DATA REVIEWED: Not Applicable RADIOLOGY DEPARTMENT: Ultrasound PERIPHERAL IV DATA: Not applicable SIGNED BY: Divine Tompkins RDMS RVT February 07, 2023 3:42 PM [facility] 02-07-2023 Note HNO ID: [id number] Author: RT Se(R) Service: ? Author Type: Technologist Type: Progress Notes Filed: 02/07/2023 3:01 PM Note Text: Radiology Service Progress Note PATIENT NAME: Noelle Reyes DATE OF SERVICE: February 07, 2023 TIME: 3:01 PM PATIENT IDENTITY VERIFICATION COMPLETED USING TWO (2) IDENTIFIERS: Name and Date of confirmed by patient verbally. FALL SCREENING: Has the patient had 2 falls in the last year or 1 fall with injury or currently using an Ambulatory Assistive Device (Walker, Cane, Wheelchair, Crutches, etc.)? No PATIENT GENDER DATA: Female. status: : No status: NO. PATIENT RELEVANT IMPLANT DATA REVIEWED: Not Applicable RADIOLOGY DEPARTMENT: Mammography PERIPHERAL IV DATA: Not applicable SIGNED BY: RT Se(R) February 07, 2023 3:01 PM [facility] 02-07-2023 History of Present illness Narrative Radiology Service Progress Note PATIENT NAME: Noelle Reyes DATE OF SERVICE: February 07, 2023 TIME: 3:42 PM PATIENT IDENTITY VERIFICATION COMPLETED USING TWO (2) IDENTIFIERS: Name and Date of confirmed by patient verbally. FALL SCREENING: Has the patient had 2 falls in the last year or 1 fall with injury or currently using an Ambulatory Assistive Device (Walker, Cane, Wheelchair, Crutches, etc.)? No PATIENT GENDER DATA: Female. status: : No status: NO. PATIENT RELEVANT IMPLANT DATA REVIEWED: Not Applicable RADIOLOGY DEPARTMENT: Ultrasound PERIPHERAL IV DATA: Not applicable SIGNED BY: Divine Tompkins RDMS RVT February 07, 2023 3:42 PM documented in this encounter [facility] 02-07-2023 History of Present illness Narrative Radiology Service Progress Note PATIENT NAME: Noelle Reyes DATE OF SERVICE: February 07, 2023 TIME: 3:01 PM PATIENT IDENTITY VERIFICATION COMPLETED USING TWO (2) IDENTIFIERS: Name and Date of confirmed by patient verbally. FALL SCREENING: Has the patient had 2 falls in the last year or 1 fall with injury or currently using an Ambulatory Assistive Device (Walker, Cane, Wheelchair, Crutches, etc.)? No PATIENT GENDER DATA: Female. status: : No status: NO. PATIENT RELEVANT IMPLANT DATA REVIEWED: Not Applicable RADIOLOGY DEPARTMENT: Mammography PERIPHERAL IV DATA: Not applicable SIGNED BY: RT Se(R) February 07, 2023 3:01 PM documented in this encounter [facility] 12-11-2022 Note HNO ID: [id number] Author: JOSIE Berrios) Service: ? Author Type: Technologist Type: Progress Notes Filed: 12/11/2022 9:54 AM Note Text: Radiology Service Progress Note PATIENT NAME: Noelle Reyes DATE OF SERVICE: December 11, 2022 TIME: 9:53 AM PATIENT IDENTITY VERIFICATION COMPLETED USING TWO (2) IDENTIFIERS: Name and Date of confirmed by patient verbally. FALL SCREENING: Has the patient had 2 falls in the last year or 1 fall with injury or currently using an Ambulatory Assistive Device (Walker, Cane, Wheelchair, Crutches, etc.)? No PATIENT GENDER DATA: Female. status: : No status: NO. PATIENT RELEVANT IMPLANT DATA REVIEWED: Not Applicable RADIOLOGY DEPARTMENT: Mammography PERIPHERAL IV DATA: Not applicable SIGNED BY: RT Agustina(R) December 11, 2022 9:53 AM [facility] 12-11-2022 History of Present illness Narrative Radiology Service Progress Note PATIENT NAME: Noelle Reyes DATE OF SERVICE: December 11, 2022 TIME: 9:53 AM PATIENT IDENTITY VERIFICATION COMPLETED USING TWO (2) IDENTIFIERS: Name and Date of confirmed by patient verbally. FALL SCREENING: Has the patient had 2 falls in the last year or 1 fall with injury or currently using an Ambulatory Assistive Device (Walker, Cane, Wheelchair, Crutches, etc.)? No PATIENT GENDER DATA: Female. status: : No status: NO. PATIENT RELEVANT IMPLANT DATA REVIEWED: Not Applicable RADIOLOGY DEPARTMENT: Mammography PERIPHERAL IV DATA: Not applicable SIGNED BY: RT Agustina(R) December 11, 2022 9:53 AM documented in this encounter [facility] 09-05-2022 Note HNO ID: [id number] Author: Maryjane Huntley MD Service: ? Author Type: Physician Type: Progress Notes Filed: 09/05/2022 9:56 AM Note Text: Mobile Equipment Servicer offered: Patient accepts, visit chaperoned by Margarette Landin. Carmen is a 62 year old Female who presents today for a colposcopy. The patient's last pap smear was ASCUS with positive HPV from August 2022. Patient has a history of abnormal pap: Yes. The patient has had prior treatment: none. test: n/a UNIVERSAL PROTOCOL / SAFETY CHECKLIST Procedure to be Performed: Colposcopy Sign In: A Moment of CARE was completed. Personnel directly involved with the procedure wore the appropriate PPE (Personal Protective Equipment). Patient/Surrogate Stated/Verified: PATIENT VERIFIED(optional for EMERGENT procedures): Patient name, Date of , Relevant allergies, and The intended procedure Time Out Communication: Intended patient and procedure match the source documents. Consent documented and matches the intended procedure. Relevant labs, photos, and/or imaging studies have been reviewed. No implant(s) inserted. Sign Out: SIGN OUT (optional for EMERGENT procedures): All specimen containers correctly labeled. All instruments, equipment, possible retained foreign bodies accounted for. Post-procedure follow-up management communicated and Plan of Care Visit completed when applicable. PROCEDURE: EXTERNAL GENITALIA: Normal in appearance without lesions VAGINA: Normal in appearance without lesions CERVIX: Speculum placed in vagina and excellent visualization of cervix achieved. Cervix swabbed x 3 with 3% acetic acid solution. Cervix grossly normal. Squamocolumnar junction visualized. flush cervix. Some mild AW. No other abnormalities noted. BIOPSY: Done at 4:00, 7:00, and 12:00 ECC: not done- cervix atrophic HEMOSTASIS: Obtained with silver nitrate Procedure Summary: Patient tolerated procedure well and colposcopy was adequate. ASSESSMENT: HPV effect PLAN: Specimens labeled and sent to Pathology. Will notify patient of results in 1-2 weeks. Post-procedure instructions reviewed and written material given to the patient. had gardasil vaccines. Maryjane Huntley MD [facility] 09-05-2022 History of Present illness Narrative Mobile Equipment Servicer offered: Patient accepts, visit chaperoned by Margarette Landin. Carmen is a 62 year old Female who presents today for a colposcopy. The patient's last pap smear was ASCUS with positive HPV from August 2022. Patient has a history of abnormal pap: Yes. The patient has had prior treatment: none. test: n/a UNIVERSAL PROTOCOL / SAFETY CHECKLIST Procedure to be Performed: Colposcopy Sign In: A Moment of CARE was completed. Personnel directly involved with the procedure wore the appropriate PPE (Personal Protective Equipment). Patient/Surrogate Stated/Verified: PATIENT VERIFIED(optional for EMERGENT procedures): Patient name, Date of , Relevant allergies, and The intended procedure Time Out Communication: Intended patient and procedure match the source documents. Consent documented and matches the intended procedure. Relevant labs, photos, and/or imaging studies have been reviewed. No implant(s) inserted. Sign Out: SIGN OUT (optional for EMERGENT procedures): All specimen containers correctly labeled. All instruments, equipment, possible retained foreign bodies accounted for. Post-procedure follow-up management communicated and Plan of Care Visit completed when applicable. PROCEDURE: EXTERNAL GENITALIA: Normal in appearance without lesions VAGINA: Normal in appearance without lesions CERVIX: Speculum placed in vagina and excellent visualization of cervix achieved. Cervix swabbed x 3 with 3% acetic acid solution. Cervix grossly normal. Squamocolumnar junction visualized. flush cervix. Some mild AW. No other abnormalities noted. BIOPSY: Done at 4:00, 7:00, and 12:00 ECC: not done- cervix atrophic HEMOSTASIS: Obtained with silver nitrate Procedure Summary: Patient tolerated procedure well and colposcopy was adequate. ASSESSMENT: HPV effect PLAN: Specimens labeled and sent to Pathology. Will notify patient of results in 1-2 weeks. Post-procedure instructions reviewed and written material given to the patient. had gardasil vaccines. Maryjane Huntley MD documented in this encounter [facility] 09-05-2022 Instructions Margarette Landin MA - 09/05/2022 9:14 AM EST YOUR RECOVERY It may take a few weeks for your cervix to heal. While your cervix heals, you may have: - Vaginal bleeding (less than a normal menstrual period) - Mild cramping - A brown-black vaginal discharge (similar to coffee grounds) which is a result of the paste used to help stop bleeding from the procedure Do NOT put anything in the vagina for 1 week after your colposcopy if your doctor does a biopsy of your cervix. This includes sex, tampons, and douches. If you have any discomfort, you may take an over the counter pain medication (motrin, advil, ibuprofen, tylenol, etc). If this does not relieve your discomfort, contact your doctor's office for a prescription strength pain medication. It is okay to wear a sanitary pad until the discharge and spotting stops. RISKS Although problems seldom occur with colposcopy, there can be some complications. You may feel faint during and shortly after the procedure as well as have some bleeding and vaginal discharge after the procedure. There is also a risk of infection after the procedure. These complications are rare and can be easily treated. You should contact you doctor is you have any of the following: - Heavy bleeding (more than your normal period) - Bleeding with clots - Severe abdominal pain - Fever (more than 100.4F) - Foul smelling vaginal discharge RESULTS If a biopsy was taken, we will have the results of your biopsy in 1-2 weeks. If you do not hear the results of your biopsy after 2 weeks, please contact your physicians office for the results. Depending on the biopsy results, your doctor will determine your follow up plan which may include further testing or treatments. STAYING HEALTHY After the procedure, you will need to see your doctor for follow up visits during the year. At these visits your doctor will check the health of your cervix with a pap smear. After three normal pap smears, your doctor will allow you to return to having exams once a year. If you have another abnormal pap smear, you may need closer follow up for longer or you may need additional treatment. By making a few lifestyle changes after the procedure, you can help protect the health of your cervix: - Have regular pelvic exams and pap smears as ordered by your doctor. - Stop smoking as smoking increases your risk of developing a cancer of the cervix - If you have more than one sexual partner, limit your number of partners and use condoms to reduce your risks of STDs. If you have any additional questions, please contact your doctor's office. documented in this encounter [facility] 08-24-2022 Miscellaneous Notes Appointment given. Chelle Aguirre RN Left message for patient to call office. Chelle Aguirre RN ----- Message from Leisa Dockery APRN.FINANCIAL LEGAL ASSISTANT sent at 08/22/2022 12:16 PM EST ----- Please notify Noelle Reyes - Pap ASCUS, HRHPV positive. Needs colposcopy with RR. Colposcopy ordered and placed on problem list. Leisa Dockery APRN.CNP documented in this encounter [facility] 08-15-2022 Note HNO ID: [id number] Author: Leisa Dockery APRN.ALEJANDRA Service: ? Author Type: Nurse Practitioner Type: Progress Notes Filed: 08/15/2022 8:32 AM Note Text: Mobile Equipment Servicer offered: Patient declines. Carmen is a 62 year old who presents for an annual gynecologic exam without complaints. Postmenopausal: Yes since age 53 HRT use: No. HPV vaccine: completed Last Pap: 2020 ASCUS HPV: 2020 positive History of abnormal pap: Yes conization 2017, Colposcopy 09/2020 AND 2020 - benign Last mammogram: 2021 normal History of abnormal mammogram: Yes, calcifications left breast, neg biopsy Sexually active: Not for past 6 months Patient concerns for STD exposure: No. Pain with intercourse: No Postcoital bleeding: No Documentation from previous visit of 08/12/2021 was copied and pasted, documentation has been reviewed and edited as necessary for today's visit. 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 History Comments: Sexual Activity: Yes; Male Contraception: PAST MEDICAL HISTORY Diagnosis Date Anemia Contact dermatitis and other eczema, due to unspecified cause Diaphragmatic hernia without mention of obstruction or gangrene 12/12/05 Hypothyroid Internal hemorrhoids without mention of complication Iron deficiency anemia, unspecified Osteoarthritis Panic disorder without agoraphobia Pure hypercholesterolemia Rectal bleeding Simple or unspecified chronic serous otitis media Surveillance of previously prescribed contraceptive pill PAST SURGICAL HISTORY Procedure Laterality Date COLONOSCOPY FLX DX W/COLLJ SPEC WHEN PFRMD 12/01/05 COLONOSCOPY FLX DX W/COLLJ SPEC WHEN PFRMD 04/12/2018 adenomatous polyp, repeat in 5 years CONIZATION OF CERVIX; COLD KNIFE/LASER 06/20/2018 @ [facility]-Dr. Ramirez EGFauzia TRANSORAL BIOPSY SINGLE/MULTIPLE 12/12/05 PAST SURGICAL HISTORY OF breast bx for calicafication X 2 PAST SURGICAL HISTORY OF 10/2006 breast implants PAST SURGICAL HISTORY OF 2007 breast bx, benign WRIST SURGERY HX 09/2014 left wrist WRIST SURGERY HX 06/2018 right wrist - arthritic joint jainism FAMILY HISTORY Problem Relation Age of Onset Breast Cancer Mother other (Hypercholesterolemia) Mother breast cancer Hypertension Father hypercholesterolemia Cancer Father bladder other (Heart, pacemaker) Father Hypertension Brother Hypertension Brother Hypertension Brother Ulcerative Colitis Daughter 32 colecotmy Cancer Paternal Aunt bladder, heart-- SOCIAL HISTORY Social History Tobacco Use Smoking status: Never Smokeless tobacco: Never Vaping Use Vaping Use: Never used Substance Use Topics Alcohol use: Yes Comment: Occasionally Drug use: No REVIEW OF SYSTEMS Abdomen: No abdominal pain, nausea, vomiting, diarrhea, or constipation. No bloating, early satiety, indigestion, or increased flatulence. Bladder: No dysuria, gross hematuria, urinary frequency, urinary urgency, or incontinence Breast: No breast lumps, nipple d/c, overlying skin changes, redness or skin retraction Allergies and current medication updated:Yes EXAM: BP 122/84 Ht 5' 4.5 (1.64m) Wt 161 lb (73.0kg) LMP 2010 BMI 27.22 kg/(m2). GENERAL: pleasant, female in no apparent distress HEENT: Normocephalic, atraumatic, mucus membranes moist, and no lesions NECK: Supple, full range of motion, no adenopathy, and thyroid normal DERMATOLOGY: Normal, without lesions, non-icteric, and non-hirsute BREAST: soft, non-tender, symmetric, no dominant mass, normal nipple-areolar complex, no lymphadenopathy, and no nipple discharge CHEST: Normal inspiratory effort ABDOMEN: soft, non-tender, and no masses PELVIC: external genitalia normal, normal Bartholin's glands, urethra, Ponca's glands, no vulvar lesions, no cervical lesions, physiologic discharge present, normal appearing perineal body and perianal region BIMANUAL: uterus normal size, shape and consistency, no adnexal masses, and non-tender RECTOVAGINAL: deferred. NEURO: alert and oriented x3,exam grossly non-focal EXTREMITIES: normal ASSESSMENT/PLAN: 1) Health maintenance: Pap done with HPV. Mammogram ordered Mammogram up to date Nutrition, exercise and routine health maintenance exams reviewed. Calcium/Vitamin D supplementation information provided. Colon cancer screening: start at age 45 BMD: ordered 2) Follow up one year or sooner as needed Leisa Dockery APRN.ALEJANDRA [facility] 08-15-2022 Instructions Leisa Dockery APRN.ALEJANDRA - 08/15/2022 8:20 AM EST Calcium and Vitamin D Supplementation (from the National Institutes of Health Office of Dietary Supplements 2011) Calcium 1200 mg daily - 600 mg twice a day if taking supplement and Vit D 800-1000 IU daily Calcium is required by the body for blood vessel, muscle, hormone and nerve functioning. Most of the body's calcium is stored in the bones and teeth where it supports structure and function. Bone is continuously broken down and reformed. When bone breakdown exceeds formation, especially in postmenopausal women, bone loss can increase the risk of osteoporosis and fractures. In addition to low calcium intake, women who smoke, have a family history of osteoporosis, are thin, or , or who take certain medications such as cancer chemotherapy, seizure mediations and steroids are at increased risk of osteoporosis. The calcium requirements in women change with age. The National Institutes of Health (NIH) recommends: 1000mg elemental calcium for premenopausal women age 19-50 1200mg elemental calcium for postmenopausal women and all women over 50 Milk, yogurt, and cheese are rich natural sources of calcium and are the major food contributors in the [place]. For example, 8oz of milk (whole, lowfat or skim) contains about 300mg calcium, 8oz of yogurt contains 415mg. Nondairy sources include salmon and sardines and vegetables, such as Telugu cabbage, kale, and broccoli. Foods fortified with calcium include many fruit juices, tofu and cereals. For more food calcium content information, visit http://ods.od.nih.gov/factsheets/c alcium. Calcium supplements come in several different forms. Remember that the recommendations are for millgrams (mg) of elemental calcium which may be less than the total weight of the supplement. The amount of elemental calcium is required to be printed on the label. Calcium carbonate is the least expensive form. It must be taken on a full stomach to be properly absorbed. Some patients may experience gas or constipation. Calcium phosphate and calcium citrate may be taken either with or without food and tend to have less side effects but are generally more expensive. Because of its ability to neutralize stomach acid, calcium carbonate is found in some [id number] antacid products, such as Tums and Rolaids . Depending on its strength, each chewable pill or softchew provides 200 to 400 mg of elemental calcium. The percentage of calcium absorbed depends on the total amount of elemental calcium consumed at one time. Absorption is highest in doses <500mg. So a woman who takes 1,000mg/day of calcium from supplements should split the dose and take 500mg at two separate times during the day. Too much calcium can cause kidney stones, constipation, difficulty absorbing other nutrients and calcium buildup in blood vessels. Women under 50 should not exceed 2500mg/day (2000mg/day for women over 50) of calcium from food and supplements. Excessive alcohol and caffeine intake can inhibit absorption of calcium. Calcium can reduce the absorption of some medications if taken at the same time of day (bisphosphonates, thyroid medication, Phenytoin and other seizure medications, some antibiotics and iron supplements). Vitamin D promotes calcium absorption in the gut and maintains adequate blood levels of calcium and phosphate for normal bone growth and bone remodeling. Vitamin D also helps regulate cell growth as well as nerve, muscle and immune system function. Vitamin D is produced in the skin as a result of ultraviolet sunlight rays and must be altered in the liver and kidney to become its active form. Recommended intake according to the National Institutes of Health is 600 International Units (IU) for girls and women ages 1-70 and 800 IU for women over 70. Very few foods in nature contain vitamin D. The flesh of fatty fish (such as salmon, tuna, and mackerel) and fish liver oils are among the best sources. Small amounts of vitamin D are found in beef liver, cheese, mushrooms and egg yolks. Most people meet at least some of their vitamin D needs through exposure to sunlight. Season, time of day, length of day, cloud cover, smog, skin melanin content, and sunscreen are among the factors that affect UV radiation exposure and vitamin D synthesis. Despite the importance of the sun for vitamin D synthesis, it is prudent to limit exposure of skin to sunlight and avoid tanning beds. UV radiation is a carcinogen responsible for most of the estimated 1.5 million skin cancers that occur annually in the [place]. Lifetime cumulative UV damage to skin is also responsible for some age-associated dryness and other cosmetic changes. In supplements and fortified foods, vitamin D is available in two forms, D2 (ergocalciferol) and D3 (cholecalciferol). The two are equivalent at normal supplement doses. For women who require high supplement doses because of vitamin D deficiency, D3 may work better to raise blood levels. Some medications can prevent proper absorption of Vitamin D. These include laxatives, corticosteroids like prednisone, the seizure drugs phenobarbital and phenytoin, the weight-loss drug orlistat ( Xenical and AlliTM) and the cholesterol-lowering drug cholestyramine (Questran , LoCholest , and Prevalite ). Talk to your doctor about adjusting your recommended daily vitamin D dosage if you take these medications. You should not exceed 4000 mg of vitamin D supplementation daily unless specifically prescribed by your doctor. documented in this encounter [facility] 08-15-2022 History of Present illness Narrative Mobile Equipment Servicer offered: Patient declines. Carmen is a 62 year old who presents for an annual gynecologic exam without complaints. Postmenopausal: Yes since age 53 HRT use: No. HPV vaccine: completed Last Pap: 2020 ASCUS HPV: 2020 positive History of abnormal pap: Yes conization 2017, Colposcopy 09/2020 & 2020 - benign Last mammogram: 2021 normal History of abnormal mammogram: Yes, calcifications left breast, neg biopsy Sexually active: Not for past 6 months Patient concerns for STD exposure: No. Pain with intercourse: No Postcoital bleeding: No Documentation from previous visit of 08/12/2021 was copied and pasted, documentation has been reviewed and edited as necessary for today's visit. 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 History Comments: Sexual Activity: Yes; Male Contraception: PAST MEDICAL HISTORY Diagnosis Date Anemia Contact dermatitis and other eczema, due to unspecified cause Diaphragmatic hernia without mention of obstruction or gangrene 12/12/05 Hypothyroid Internal hemorrhoids without mention of complication Iron deficiency anemia, unspecified Osteoarthritis Panic disorder without agoraphobia Pure hypercholesterolemia Rectal bleeding Simple or unspecified chronic serous otitis media Surveillance of previously prescribed contraceptive pill PAST SURGICAL HISTORY Procedure Laterality Date COLONOSCOPY FLX DX W/COLLJ SPEC WHEN PFRMD 12/01/05 COLONOSCOPY FLX DX W/COLLJ SPEC WHEN PFRMD 04/12/2018 adenomatous polyp, repeat in 5 years CONIZATION OF CERVIX; COLD KNIFE/LASER 06/20/2018 @ [facility]-Dr. Ramirez EGFauzia TRANSORAL BIOPSY SINGLE/MULTIPLE 12/12/05 PAST SURGICAL HISTORY OF breast bx for calicafication X 2 PAST SURGICAL HISTORY OF 10/2006 breast implants PAST SURGICAL HISTORY OF 2007 breast bx, benign WRIST SURGERY HX 09/2014 left wrist WRIST SURGERY HX 06/2018 right wrist - arthritic joint jainism FAMILY HISTORY Problem Relation Age of Onset Breast Cancer Mother other (Hypercholesterolemia) Mother breast cancer Hypertension Father hypercholesterolemia Cancer Father bladder other (Heart, pacemaker) Father Hypertension Brother Hypertension Brother Hypertension Brother Ulcerative Colitis Daughter 32 colecotmy Cancer Paternal Aunt bladder, heart-- SOCIAL HISTORY Social History Tobacco Use Smoking status: Never Smokeless tobacco: Never Vaping Use Vaping Use: Never used Substance Use Topics Alcohol use: Yes Comment: Occasionally Drug use: No REVIEW OF SYSTEMS Abdomen: No abdominal pain, nausea, vomiting, diarrhea, or constipation. No bloating, early satiety, indigestion, or increased flatulence. Bladder: No dysuria, gross hematuria, urinary frequency, urinary urgency, or incontinence Breast: No breast lumps, nipple d/c, overlying skin changes, redness or skin retraction Allergies and current medication updated:Yes EXAM: BP 122/84 Ht 5' 4.5 (1.64m) Wt 161 lb (73.0kg) LMP 2010 BMI 27.22 kg/(m^2). GENERAL: pleasant, female in no apparent distress HEENT: Normocephalic, atraumatic, mucus membranes moist, and no lesions NECK: Supple, full range of motion, no adenopathy, and thyroid normal DERMATOLOGY: Normal, without lesions, non-icteric, and non-hirsute BREAST: soft, non-tender, symmetric, no dominant mass, normal nipple-areolar complex, no lymphadenopathy, and no nipple discharge CHEST: Normal inspiratory effort ABDOMEN: soft, non-tender, and no masses PELVIC: external genitalia normal, normal Bartholin's glands, urethra, Ponca's glands, no vulvar lesions, no cervical lesions, physiologic discharge present, normal appearing perineal body and perianal region BIMANUAL: uterus normal size, shape and consistency, no adnexal masses, and non-tender RECTOVAGINAL: deferred. NEURO: alert and oriented x3,exam grossly non-focal EXTREMITIES: normal ASSESSMENT/PLAN: 1) Health maintenance: Pap done with HPV. Mammogram ordered Mammogram up to date Nutrition, exercise and routine health maintenance exams reviewed. Calcium/Vitamin D supplementation information provided. Colon cancer screening: start at age 45 BMD: ordered 2) Follow up one year or sooner as needed Leisa Dockery APRN.FINANCIAL LEGAL ASSISTANT documented in this encounter [facility] documented as of this encounter (statuses as of 08/15/2022) [facility] History of Past illness Narrative* Problem Noted Date Resolved Date Surveillance of previously prescribed contracept tammie pill 05/03/2010 documented as of this encounter (statuses as of 08/22/2022) [facility] History of Past illness Narrative* Problem Noted Date Resolved Date Surveillance of previously prescribed contracept tammie pill 05/03/2010 documented as of this encounter (statuses as of 08/24/2022) [facility] History of Past illness Narrative* Problem Noted Date Resolved Date Surveillance of previously prescribed contracept tammie pill 05/03/2010 documented as of this encounter (statuses as of 09/05/2022) [facility] History of Past illness Narrative* Problem Noted Date Diagnosed Date Resolved Date Surveillance of previously p rescribed contraceptive pill 05/03/2010 documented as of this encounter (statuses as of 08/12/2023) [facility] History of Past illness Narrative* Problem Noted Date Diagnosed Date Resolved Date Surveillance of previously p rescribed contraceptive pill 05/03/2010 documented as of this encounter (statuses as of 08/12/2023) [facility] History of Past illness Narrative* Problem Noted Date Diagnosed Date Resolved Date Surveillance of previously p rescribed contraceptive pill 05/03/2010 documented as of this encounter (statuses as of 08/12/2023) [facility] Diagnosis Encounter for gynecological examination (general) (routine) without abnormal findings- Primary Encounter for screening for human papillomavirus (HPV) Special screening examination for human papillomavirus (HPV) Pap smear for cervical cancer screening Screening for malignant neoplasm of the cervix Encounter for screening mammogram for breast cancer Encounter for screening for osteoporosis Special screening for osteoporosis Asymptomatic postsurgical menopause [facility] Diagnosis ASCUS with positive high risk HPV cervical- Primary Cervical high risk human papillomavirus (HPV) DNA test positive documented in this encounter [facility] note* Diagnosis ASCUS with positive high risk HPV cervical- Primary Cervical high risk human papillomavirus (HPV) DNA test positive [facility] Diagnosis Abnormal mammogram Abnormal mammogram, unspecified [facility] Diagnosis Encounter for gynecological examination (general) (routine) without abnormal findings Encounter for screening mammogram for breast cancer [facility] Diagnosis Abnormal mammogram Abnormal mammogram, unspecified documented in this encounter [facility] for referral (narrative)* Diagnostic Procedure Only (Routine) - Pending Review Specialty Diagnoses / Procedures Referred By Zaheer t Referred To Contact [facility] Diagnoses Encounter for gynecological examination (general) (routine) without abnormal findings Encounter for screening mammogram for breast cancer Procedures LEE SCREENING SCREENING MAMMOGRAPHY BI 2-VIEW BREAST INC Leisa Mcnamara APRN.CNP [address] [place] [address] [facility] [address] [place] [place] [address] Referral ID Status Reason Start Date Expiration Date Visits Requested Visits Authorized [id number] Pending Review Auto-Generat ed Referral 08/15/2022 09/14/2023 1 1 [facility] Outpatient Procedure (Routine) - Pending Review Specialty Diagnoses / Procedures Referred By Zaheer santos Referred To Contact [facility] Diagnoses ASCUS with positive high risk HPV cervical Procedures COLPOSCOPY COLPOSCOPY CERVIX BX CERVIX & ENDOCRV CURRETAGE Leisa Dockery APRN.FINANCIAL LEGAL ASSISTANT [address] [place] [address] [facility] [address] [place] [address] Referral ID Status Reason Start Date Expiration Date Visits Requested Visits Authorized [id number] Pending Review Auto-Generat ed Referral 2 08/22/2023 1 1 [facility] for referral (narrative)* Diagnostic Procedure Only (Routine) - Closed Specialty Diagnoses / Procedures Referred By Zaheer santos Referred To Contact [facility] Diagnoses Abnormal mammogram Procedures US BREAST LTD RT US BREAST UNI REAL TIME WITH IMAGE LIMITED Leisa Dockery APRN.FINANCIAL LEGAL ASSISTANT [address] [place] [address] [facility] [address] [place] [address] Referral ID Status Reason Start Date Expiration Date V isits Requested Visits Authorized [id number] Closed Auto-Generate d Referral 12/13/2022 01/12/2024 1 1 [facility] for referral (narrative)* Diagnostic Procedure Only (Routine) - Closed Specialty Diagnoses / Procedures Referred By Zaheer t Referred To Contact [facility] Diagnoses Encounter for gynecological examination (general) (routine) without abnormal findings Encounter for screening mammogram for breast cancer Procedures LEE SCREENING SCREENING MAMMOGRAPHY BI 2-VIEW BREAST INC CAD Leisa Dockery APRN.FINANCIAL LEGAL ASSISTANT [address] [place] [address] [facility] [address] [employer] [place] [address] Referral ID Status Reason Start Date Expiration Date V isits Requested Visits Authorized [id number] Closed Auto-Generate d Referral 08/15/2022 09/14/2023 1 1 [facility] for visit Narrative* Diagnostic Procedure Only (Routine) - Closed Specialty Diagnoses / Procedures Referred By Zaheer santos Referred To Contact [facility] Diagnoses Encounter for gynecological examination (general) (routine) without abnormal findings Encounter for screening mammogram for breast cancer Procedures LEE SCREENING SCREENING MAMMOGRAPHY BI 2-VIEW BREAST INC [facility] Leisa Dockery APRN.FINANCIAL LEGAL ASSISTANT [address] [place] [address] [facility] [address] [place] [id number] Referral ID Status Reason Start Date Expiration Date V isits Requested Visits Authorized [id number] Closed Auto-Generate d Referral 08/15/2022 09/14/2023 1 1 [facility] for visit Narrative* Diagnostic Procedure Only (Routine) - Closed Specialty Diagnoses / Procedures Referred By Zaheer santos Referred To Contact [facility] Diagnoses Abnormal mammogram Procedures LEE DIAGNOSTIC RT DIAGNOSTIC MAMMOGRAPHY COMPUTER-AIDED DETCJ Leisa Davis APRN.FINANCIAL LEGAL ASSISTANT [address] [place] [address] [facility] [email or web address] [address] Referral ID Status Reason Start Date Expiration Date V isits Requested Visits Authorized [id number] Closed Auto-Generate d Referral 12/13/2022 01/12/2024 1 1 [facility] Summary Purpose Family History No Family History Records Found Advance Directives No Advanced Directives Records Found Additional Source Comments Source Comments (unrecognize d section and content) In the event this informatio n is protected by the Federal Confidentiality of Alcohol and Drug Abuse Patient Records regulations: The Federal rules restrict any use of the information to criminally investigate or prosecute any alcohol or drug abuse patient.[facility] the event this information is protected by the Federal Confidentiality of Alcohol and Drug Abuse Patient Records regulations: The Federal rules restrict any use of the information to criminally investigate or prosecute any alcohol or drug abuse patient.[facility] the event this information is protected by the Federal Confidentiality of Alcohol and Drug Abuse Patient Records regulations: The Federal rules restrict any use of the information to criminally investigate or prosecute any alcohol or drug abuse patient.[facility] the event this information is protected by the Federal Confidentiality of Alcohol and Drug Abuse Patient Records regulations: The Federal rules restrict any use of the information to criminally investigate or prosecute any alcohol or drug abuse patient.[facility] the event this information is protected by the Federal Confidentiality of Alcohol and Drug Abuse Patient Records regulations: The Federal rules restrict any use of the information to criminally investigate or prosecute any alcohol or drug abuse patient.[facility] the event this information is protected by the Federal Confidentiality of Alcohol and Drug Abuse Patient Records regulations: The Federal rules restrict any use of the information to criminally investigate or prosecute any alcohol or drug abuse patient.[facility] Center[facility] the event this information is protected by the Federal Confidentiality of Alcohol and Drug Abuse Patient Records regulations: The Federal rules restrict any use of the information to criminally investigate or prosecute any alcohol or drug abuse patient.[facility] Reason for Visit (unrecogniz ed section and content) Reason Comments Results Reason Comments Colposcopy Specialty Diagnoses / Procedures Referred By Zaheer t Referred To Contact [facility] Diagnoses ASCUS with positive high risk HPV cervical Procedures COLPOSCOPY COLPOSCOPY CERVIX BX CERVIX & ENDOCRV CURRETAGE Leisa Dockery APRN.FINANCIAL LEGAL ASSISTANT [address] [place] [address] [facility] [address] [place] [address] Referral ID Status Reason Start Date Expiration Date V isits Requested Visits Authorized [id number] Closed Auto-Generate d Referral 08/25/2022 10/06/2022 1 1 Reason Comments Radiology US Specialty Diagnoses / Procedures Referred By Contminnie t Referred To Contact [facility] Diagnoses Abnormal mammogram Procedures US BREAST LTD RT US BREAST UNI REAL TIME WITH IMAGE LIMITED Leisa Dockery APRN.FINANCIAL LEGAL ASSISTANT [address] [place] [place] [address] [facility] [address] [place] [address] Referral ID Status Reason Start Date Expiration Date V isits Requested Visits Authorized [id number] Closed Auto-Generate d Referral 12/13/2022 01/12/2024 1 1 Care Teams (unrecognized sec tion and content) 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 Start Date End Date Carlos uQach MD [address] [place] [address] PCP - General 11/24/03 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 Start Date End Date Carlos Quach MD [address] [place] [address] PCP - General 11/24/03 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 Start Date End Date Carlos Quach MD [address] [place] [id number] PCP - General 11/24/03 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 Start Date End Date Carlos Quach MD [address] [place] [id number] PCP - General 11/24/03 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 This clinical summary was aggregated from multiple sources. Caution should be exercised in using it in the provision of clinical care. This summary normalizes information from multiple sources, and as a consequence, information in this document may materially change the coding, format and clinical context of patient data. In addition, data may be omitted in some cases. CLINICAL DECISIONS SHOULD BE BASED ON THE PRIMARY CLINICAL RECORDS. [email or web address] provides no warranty or guarantee of the accuracy or completeness of information in this document.
[2023-10-24 10:26] LABS: Absolute Lymphocyte Count 2.81 X10^3/uL (0.83-4.51); Absolute Neutrophil Count 3.5 X10^3/uL (2.0-7.7); Basophil# 0.09 X10^3/uL; Basophil% 1.2 % (0-1); Hematocrit 40.8 % (37-47); Hemoglobin 13.6 g/dL (12.0-15.0); Lymphocyte # 2.81 X10^3/ul (0.83-4.51); Lymphocyte % 37.2 % (19-41); Mean Corp Hgb Conc 33.3 g/dL (32-36); Mean Corpuscular Hgb 32.3 pg (27.0-32.0); Mean Corpuscular Volume 96.9 fL (81-99); Mean Platelet Vol. 11.1 fl (6.2-12.0); Monocyte# 0.83 X10^3/uL; NRBC Flagged by Analyzer 0 % (0-5); Neutrophil # 3.51 X10^3/uL (2.7-7.7); Neutrophil % 46.3 % (47-70); Platelet Count 303 K/mm3 (150-450); RBC Distribution Width CV 12.2 % (11.6-14.6); RBC Distribution Width SD 43.1 fl (35.1-43.9); Red Blood Count 4.21 M/mm3 (4.2-5.4); White Blood Count 7.6 K/mm3 (4.4-11.0)
[2023-10-24 11:25] LABS: ALB/GLOB Ratio 1.1 RATIO (0.9-2.4); AST(SGOT) 24 U/L (15-37); Alanine Aminotransfer ALT/SGPT 28 U/L (13-56); Albumin, Serum 3.7 g/dL (3.2-5.0); Alkaline Phosphatase 96 U/L (45-117); Anion Gap 6 (5-15); BUN 22 mg/dL (7-18); BUN/Creat Ratio 34.2 RATIO (10-20); Calcium,Total 9.6 mg/dL (8.5-10.1); Chloride 108 mmol/L (98-107); Creatinine, Serum 0.64 mg/dL (0.55-1.02); EST Glomerular Filtration Rate 98 mL/min (>60); Est Glom Filt Rate - Afr Amer 119 mL/min (>60); Globulin 3.5 g/dL (2.2-4.2); Glucose 101 mg/dL (74-106); Potassium 3.5 mmol/L (3.5-5.1); Protein, Total 7.2 g/dL (6.4-8.2); Sodium Level 142 mmol/L (136-145)
== END | disposition home or self-care (01) ==
LOC: MTLAB 07:20
PROVIDERS: PCP Family Medicine; Referring Provider Internal Medicine Rheumatology; Visit Provider Internal Medicine Rheumatology
DX: M06.4 Inflammatory polyarthropathy (principal); Z79.899 Other long term (current) drug therapy
CPT/HCPCS: 36415; 80053; 85025

== ENCOUNTER → 2023-11-19 | Outpatient (CLI) | payer MEDICARE, OTHER, SELFPAY ==
[2023-11-19 15:32] LABS: Absolute Lymphocyte Count 2.76 X10^3/uL (0.83-4.51); Absolute Neutrophil Count 4.6 X10^3/uL (2.0-7.7); Basophil# 0.09 X10^3/uL; Basophil% 1.1 % (0-1); Eosinophil# 0.15 X10^3/uL; Eosinophils% 1.8 % (0-5); Hematocrit 40.2 % (37-47); Hemoglobin 13.8 g/dL (12.0-15.0); Lymphocyte # 2.76 X10^3/ul (0.83-4.51); Lymphocyte % 32.8 % (19-41); Mean Corp Hgb Conc 34.3 g/dL (32-36); Mean Corpuscular Hgb 32.8 pg (27.0-32.0); Mean Corpuscular Volume 95.5 fL (81-99); Mean Platelet Vol. 11.1 fl (6.2-12.0); Monocyte% 9.5 % (0-10); NRBC Flagged by Analyzer 0 % (0-5); Neutrophil % 54.7 % (47-70); Platelet Count 282 K/mm3 (150-450); RBC Distribution Width CV 12.3 % (11.6-14.6); RBC Distribution Width SD 43.1 fl (35.1-43.9); Red Blood Count 4.21 M/mm3 (4.2-5.4); White Blood Count 8.4 K/mm3 (4.4-11.0)
[2023-11-19 15:49] LABS: Erythrocyte Sedimentation Rate 1 mm/hr (0-30)
[2023-11-19 16:21] LABS: CRP < 2.90 mg/L (0.0-3.0)
== END | disposition home or self-care (01) ==
LOC: MTLAB 13:54
PROVIDERS: PCP Family Medicine; Referring Provider Ophthalmology; Visit Provider Ophthalmology
DX: H50.52 Exophoria (principal); H53.2 Diplopia
CPT/HCPCS: 36415; 85025; 85652; 86140

== ENCOUNTER → 2024-01-23 | Outpatient (CLI) | payer MEDICARE, OTHER, SELFPAY ==
[2024-01-23 11:00] LABS: Hemoglobin A1c 5.3 % (3.8-5.6)
[2024-01-23 11:05] LABS: Protein, Urine (Random) 8.1 mg/dL (<11.9); Protein:Creat Ratio 42 mg/g CRE (0-200)
[2024-01-23 11:15] LABS: AST(SGOT) 25 U/L (15-37); Alanine Aminotransfer ALT/SGPT 31 U/L (13-56); Anion Gap 5 (5-15); BUN 21 mg/dL (7-18); BUN/Creat Ratio 30.5 RATIO (10-20); Calcium,Total 10.1 mg/dL (8.5-10.1); Chloride 108 mmol/L (98-107); Cholesterol 204 mg/dL (200); Creatinine, Serum 0.69 mg/dL (0.55-1.02); EST Glomerular Filtration Rate 91 mL/min (>60); Est Glom Filt Rate - Afr Amer 110 mL/min (>60); Glucose 104 mg/dL (74-106); High Density Lipoprotein 73 mg/dL; Potassium 3.3 mmol/L (3.5-5.1); Sodium Level 141 mmol/L (136-145); T4 Total, Thyroxin 11.3 ug/dL (4.8-13.9); Thyroid Stim Hormone (TSH) 0.29 uIU/mL (0.358-3.74); Triglycerides 117 mg/dL; Very Low Density Lipoprotein 23 mg/dL (5-40)
== END | disposition home or self-care (01) ==
LOC: MTLAB 07:27
PROVIDERS: PCP Family Medicine; Referring Provider Family Medicine; Visit Provider Family Medicine
DX: E78.00 Pure hypercholesterolemia, unspecified (principal); I10 Essential (primary) hypertension; R73.01 Impaired fasting glucose; E03.9 Hypothyroidism, unspecified
CPT/HCPCS: 36415; 80048; 80061; 82570; 83036; 84156; 84436; 84443; 84450; 84460

== ENCOUNTER → 2024-05-15 | Outpatient (CLI) | payer MEDICARE, OTHER, SELFPAY ==
[2024-05-15 10:12] LABS: Absolute Lymphocyte Count 2.24 X10^3/uL (0.83-4.51); Absolute Neutrophil Count 4.7 X10^3/uL (2.0-7.7); Basophil# 0.08 X10^3/uL; Eosinophil# 0.19 X10^3/uL; Eosinophils% 2.3 % (0-5); Hematocrit 39.6 % (37-47); Hemoglobin 13.5 g/dL (12.0-15.0); Lymphocyte # 2.24 X10^3/ul (0.83-4.51); Lymphocyte % 27.6 % (19-41); Mean Corp Hgb Conc 34.1 g/dL (32-36); Mean Corpuscular Hgb 31.3 pg (27.0-32.0); Mean Corpuscular Volume 91.7 fL (81-99); Mean Platelet Vol. 11.6 fl (6.2-12.0); Monocyte% 11.1 % (0-10); NRBC Flagged by Analyzer 0 % (0-5); Neutrophil # 4.68 X10^3/uL (2.7-7.7); Neutrophil % 57.8 % (47-70); Platelet Count 321 K/mm3 (150-450); RBC Distribution Width CV 12.6 % (11.6-14.6); RBC Distribution Width SD 42.5 fl (35.1-43.9); Red Blood Count 4.32 M/mm3 (4.2-5.4); White Blood Count 8.1 K/mm3 (4.4-11.0)
[2024-05-15 10:49] LABS: AST(SGOT) 20 U/L (15-37); Alanine Aminotransfer ALT/SGPT 16 U/L (13-56); Albumin, Serum 3.7 g/dL (3.2-5.0); Alkaline Phosphatase 91 U/L (45-117); Anion Gap 3 (5-15); BUN 15 mg/dL (7-18); BUN/Creat Ratio 19.6 RATIO (10-20); Calcium,Total 9.9 mg/dL (8.5-10.1); Chloride 106 mmol/L (98-107); Creatinine, Serum 0.76 mg/dL (0.55-1.02); EST Glomerular Filtration Rate 80 mL/min (>60); Est Glom Filt Rate - Afr Amer 97 mL/min (>60); Globulin 3.7 g/dL (2.2-4.2); Glucose 94 mg/dL (74-106); Potassium 3.2 mmol/L (3.5-5.1); Protein, Total 7.4 g/dL (6.4-8.2); Sodium Level 140 mmol/L (136-145)
== END | disposition home or self-care (01) ==
LOC: MTLAB 07:16
PROVIDERS: PCP Family Medicine; Referring Provider Internal Medicine Rheumatology; Visit Provider Internal Medicine Rheumatology
DX: M06.4 Inflammatory polyarthropathy (principal); Z79.899 Other long term (current) drug therapy
CPT/HCPCS: 36415; 80053; 85025

== ENCOUNTER → 2024-08-14 | Outpatient (CLI) | payer MEDICARE, OTHER, SELFPAY ==
[2024-08-14 10:33] LABS: Anion Gap 3 (5-15); BUN 18 mg/dL (7-18); BUN/Creat Ratio 26.9 RATIO (10-20); Calcium,Total 10.1 mg/dL (8.5-10.1); Chloride 105 mmol/L (98-107); Cholesterol 199 mg/dL (200); Creatinine, Serum 0.67 mg/dL (0.55-1.02); EST Glomerular Filtration Rate 94 mL/min (>60); Est Glom Filt Rate - Afr Amer 113 mL/min (>60); Glucose 97 mg/dL (74-106); High Density Lipoprotein 73 mg/dL; Potassium 3.5 mmol/L (3.5-5.1); Sodium Level 140 mmol/L (136-145); Triglycerides 88 mg/dL; Very Low Density Lipoprotein 18 mg/dL (5-40)
== END | disposition home or self-care (01) ==
PROVIDERS: PCP Family Medicine; Referring Provider Family Medicine; Visit Provider Family Medicine
DX: I10 Essential (primary) hypertension (principal); E78.00 Pure hypercholesterolemia, unspecified; E03.9 Hypothyroidism, unspecified
CPT/HCPCS: 36415; 80048; 80061; 84443

== ENCOUNTER → 2024-11-06 | Outpatient (CLI) | payer MEDICARE, OTHER, SELFPAY ==
[2024-11-06 13:14] LABS: AST(SGOT) 21 U/L (15-37); Alanine Aminotransfer ALT/SGPT 23 U/L (13-56); Albumin, Serum 3.8 g/dL (3.2-5.0); Alkaline Phosphatase 83 U/L (45-117); Anion Gap 6 (5-15); BUN 22 mg/dL (7-18); BUN/Creat Ratio 33.5 RATIO (10-20); Calcium,Total 10.3 mg/dL (8.5-10.1); Chloride 104 mmol/L (98-107); Creatinine, Serum 0.66 mg/dL (0.55-1.02); EST Glomerular Filtration Rate 96 mL/min (>60); Est Glom Filt Rate - Afr Amer 116 mL/min (>60); Globulin 3.7 g/dL (2.2-4.2); Glucose 96 mg/dL (74-106); Potassium 4.1 mmol/L (3.5-5.1); Protein, Total 7.5 g/dL (6.4-8.2); Sodium Level 139 mmol/L (136-145)
[2024-11-06 13:34] LABS: Absolute Lymphocyte Count 2.51 X10^3/uL (0.83-4.51); Absolute Neutrophil Count 4.2 X10^3/uL (2.0-7.7); Basophil# 0.07 X10^3/uL; Basophil% 0.9 % (0-1); Eosinophil# 0.19 X10^3/uL; Eosinophils% 2.4 % (0-5); Hematocrit 42.4 % (37-47); Hemoglobin 14.1 g/dL (12.0-15.0); Lymphocyte # 2.51 X10^3/ul (0.83-4.51); Lymphocyte % 31.8 % (19-41); Mean Corp Hgb Conc 33.3 g/dL (32-36); Mean Corpuscular Hgb 31.2 pg (27.0-32.0); Mean Corpuscular Volume 93.8 fL (81-99); Mean Platelet Vol. 10.9 fl (6.2-12.0); Monocyte# 0.89 X10^3/uL; Monocyte% 11.3 % (0-10); NRBC Flagged by Analyzer 0 % (0-5); Neutrophil # 4.22 X10^3/uL (2.7-7.7); Neutrophil % 53.3 % (47-70); Platelet Count 306 K/mm3 (150-450); RBC Distribution Width CV 13.1 % (11.6-14.6); RBC Distribution Width SD 45.1 fl (35.1-43.9); Red Blood Count 4.52 M/mm3 (4.2-5.4); White Blood Count 7.9 K/mm3 (4.4-11.0)
== END | disposition home or self-care (01) ==
LOC: MTLAB 09:36
PROVIDERS: PCP Family Medicine; Referring Provider Internal Medicine Rheumatology; Visit Provider Internal Medicine Rheumatology
DX: M06.4 Inflammatory polyarthropathy (principal); Z79.899 Other long term (current) drug therapy; M15.9 Polyosteoarthritis, unspecified
CPT/HCPCS: 36415; 80053; 85025

== ENCOUNTER → 2024-11-07 | Outpatient (CLI) | payer MEDICARE, OTHER, SELFPAY ==
--- NOTE | 2024-11-07 09:11 | RAD_ITS ---
PROCEDURE: HIPS B/L MIN 2 VIEWS W/ PELVIS REASON FOR EXAM: Pain. TECHNIQUE: Five view bilateral hip series including the AP pelvis COMPARISON: None provided. RAD/Hips B/L min 2 views w/ Pelvis IMPRESSION: Prominent degenerative changes are seen of the visualized lower lumbar spine. Minimal sacroiliac joint degenerative changes are is noted. The hip joints demonstrate no significant arthritic process or joint space narr owing. No evidence of femoral head osteonecrosis. No fracture or dislocation is evident. Reading Location: [id number]
== END | disposition home or self-care (01) ==
LOC: MTRAD 08:16
PROVIDERS: PCP Family Medicine; Referring Provider Internal Medicine Rheumatology; Visit Provider Internal Medicine Rheumatology
DX: M06.4 Inflammatory polyarthropathy (principal); Z79.899 Other long term (current) drug therapy; M15.9 Polyosteoarthritis, unspecified; E03.9 Hypothyroidism, unspecified
CPT/HCPCS: 73521

== ENCOUNTER → 2025-04-20 | Outpatient (CLI) | payer MEDICARE, OTHER, SELFPAY ==
[2025-04-20 12:32] LABS: Hematocrit 38.2 % (37-47); Hemoglobin 12.8 g/dL (12.0-15.0); Immature Granulocytes Count 0.010 X10^3/uL (0.0-0.0); Mean Corp Hgb Conc 33.5 g/dL (32-36); Mean Corpuscular Volume 95.3 fL (81-99); Mean Platelet Vol. 10.9 fl (6.2-12.0); NRBC Flagged by Analyzer 0 % (0-5); Platelet Count 256 K/mm3 (150-450); RBC Distribution Width CV 13.0 % (11.6-14.6); RBC Distribution Width SD 45.9 fl (35.1-43.9); Red Blood Count 4.01 M/mm3 (4.2-5.4); White Blood Count 5.9 K/mm3 (4.4-11.0)
[2025-04-20 13:02] LABS: AST(SGOT) 27 U/L (<=31); Alanine Aminotransfer ALT/SGPT 24 U/L (<=34); Albumin, Serum 4.3 g/dL (3.4-4.8); Alkaline Phosphatase 55 U/L (35-104); Anion Gap 9 (5-15); BUN 22 mg/dL (4-19); BUN/Creat Ratio 33.7 RATIO (10-20); Calcium,Total 9.9 mg/dL (7.6-11.0); Carbon Dioxide 28.6 mmol/L (21.0-32.0); Chloride 104 mmol/L (98-108); Globulin 2.5 g/dL (2.2-4.2); Glucose 89 mg/dL (70-99); Potassium 3.8 mmol/L (3.3-5.1)
--- OUTSIDE RECORDS SUMMARY | 2025-04-20 20:38 | XMS RPT_ITS | CCD ---
Author Organization [facility] Care Team Providers Care Admission Nurse Coordinator Name Role Phone Carlos Tate MD Primary Care Provider Leisa Blount Primary Care Provider Jolliff, Leisa S Primary Care Unavailable Jolliff, Leisa S Attending Unavailable Jolliff, Leisa S Referring Unavailable Jolliff, Leisa S Primary Care Unavailable Vellanki, Shakira Attending Unavailable Vellanki, Shakira Referring Unavailable Jolliff, Leisa S Primary Care Unavailable Jolliff, Leisa S Attending Unavailable Jolliff, Leisa S Referring Unavailable Jolliff, Leisa S Primary Care Unavailable Vellanki, Shakira Attending Unavailable Vellanki, Shakira Referring Unavailable Jolliff, Leisa S Primary Care Unavailable Vellanki, Shakira Attending Unavailable Vellanki, Shakira Referring Unavailable TATE, CARLOS K Primary Care Unavailable TATE, CARLOS K Primary Care Unavailable LEGER, LEISA Referring Unavailable TATE, CARLOS K Primary Care Unavailable LEGER, LEISA Attending Unavailable TATE, CARLOS K Primary Care Unavailable ARSEN, LEISA Referring Unavailable MIGDALIALLIFF, LEISA RODRIGO Primary Care Unavailable LEGER, LEISA Referring Unavailable JOLLIFF, LEISA RODRIGO Primary Care Unavailable LEGER, LEISA Referring Unavailable TATE, CARLOS K Primary Care Unavailable MARYJANE HUNTLEY Attending Unavailable MARYJANE HUNTLEY Referring Unavailable TATE, CARLOS K Primary Care Unavailable Allergies Allergy Classification Reported Allergen(s) Allergy Type Date of Onset Reaction(s) Facility (19 sources) Calamine / pramoxine; Translations: [PRAMOXINE-CALAMI NE] Drug Allergy 08-10-2006 [facility] Work Phone: Medications Current Medications Medication Drug Class(es) Dates Sig (Normalized) Sig (Original) [id number] 200 actuat albuterol 0.09 mg/actuat metered dose inhaler (6 sources) beta2-Adrenergic Agonist Start: 02-16-2019 take 1 puff(s) by inhalation every six hours Albuterol Sulfate Active 2 PUFF INHALATION EVERY 6 HOURS 6.7 February 16, 2019 12:00am atorvastatin 10 mg oral tablet (20 sources) HMG-CoA Reductase Inhibitor Start: 02-13-2013 take 1 tablet by mouth once daily atorvastatin (LIPITOR) 10 mg tablet Take 1 tablet by mouth once daily. 0 02/13/2013 Active Comment on above: Take 1 tablet by rosa th once daily. benzonatate 200 mg oral capsule (12 sources) Non-narcotic Antitussive Start: 02-27-2019 take 200 mg by mouth three times daily Benzonatate Active 200 MG PO THREE TIMES A DAY February 27, 2019 12:00am Start: 02-16-2019 End: 02-27-2019 take 1 capsule by mouth three times daily Benzonatate (Tessalon Perles) 100 mg capsule Discontinued 100 MG PO THREE TIMES A DAY February 16, 2019 12:00am February 27, 2019 9:39am hydroCHLOROthiazide 12.5 mg / lisinopril 20 mg oral tablet (20 sources) Thiazide Diuretic, Angiotensin Converting Enzyme Inhibitor Start: 06-14-2018 take 1 tablet by mouth once daily Lisinopril-Hydrochlorothiazide Active 1 TABLET PO DAILY June 14, 2018 12:00am take 1 tablet by rosa th once daily lisinopril-hydrochlorothiazide (PRINZIDE ,ZESTORETIC) 20-12.5 mg per tablet Take 1 tablet by mouth once daily. Active Comment on above: Take 1 tablet by rosa th once daily. hydroxychloroquine sulfate 200 mg oral tablet (20 sources) Antimalarial, Antirheumatic Agent Start: 2017 take 200 mg by mouth twice daily Hydroxychloroquine Active 200 MG PO TWICE A DAY June 14, 2018 12:00am hydrOXYchloroQUI NE (PLAQUENIL) 200 mg tablet Take by mouth once daily. Active Comment on above: Take by mouth once d aily. levothyroxine sodium 0.125 mg oral tablet (20 sources) l-Thyroxine Start: 8 take 1 tablet by mouth once daily levothyroxine (SYNTHROID) 125 mcg tablet Take 1 tablet by mouth once daily. 06/14/2018 Active Comment on above: Take 1 tablet by rosa th once daily. MULTIVITAMIN TAB (18 sources) Start: 5 MULTIVITAMIN TAB Take one(1) tablet daily. 0 09/21/2005 Active Comment on above: Take one(1) tablet d aily. PARoxetine hydrochloride 20 mg oral tablet (20 sources) Serotonin Reuptake Inhibitor Start: 8 take 25 mg by mouth once daily Paroxetine Hcl Active 25 MG PO DAILY June 14, 2018 12:00am PAROXETINE HCL ( PAXIL ORAL) Take 25 mg by mouth. Active Comment on above: Take 25 mg by mouth. Completed/Discontinued Medications Medication Drug Class(es) Dates Sig (Normalized) Sig (Original) azithromycin 250 mg oral tablet (6 sources) Macrolide Antimicrobial Start: 02-16-2019 End: 02-27-2019 take 2-5 tablets by mouth once daily Azithromycin (Zithromax Z-Jerman) 250 mg tablet Discontinued 0 PO .COMPLEX February 16, 2019 12:00am February 27, 2019 9:38am take 500 mg today (day 1), then 250 mg for 4 days (days 2-5) naproxen sodium 220 mg oral tablet (4 sources) Nonsteroidal Anti-inflammatory Drug Start: 02-13-2013 End: 09-05-2022 take 1 tablet by mouth twice daily naproxen sodium (ALEVE) 220 mg tablet Take 1 tablet by mouth twice daily. 0 02/13/2013 09/05/2022 Discontinued Comment on above: Take 1 tablet by rosa th twice daily. nystatin [id number] unt/ml oral suspension (12 sources) Polyene Antifungal Start: 02-27-2019 End: 04-11-2019 take 1 mL by mouth every six hours Nystatin Discontinued 4 ML PO EVERY 6 HOURS 500 March 14, 2019 9:26am April 11, 2019 12:07am swish and swallow Problems Active Problems Problem Classification Problem Date Documented Da te Episodic/Chronic Allergic reactions (18 sources) Contact dermatitis; Translations: [Unspecified contact dermatitis, unspecified cause] 08-18-2005 Episodic Anxiety disorders (18 sources) Panic disorder without agoraphobia; Translations: [Panic disorder [episodic paroxysmal anxiety]] 08-18-2005 Chronic Chronic obstructive pulmonary disease and bronchiectasis (6 sources) Bronchitis; Translations: [Bronchitis, not specified as acute or chronic] 02-27-2019 Episodic Complications of surgical procedures or medical care (1 source) Postsurgical menopause; Translations: [Asymptomatic postprocedural ovarian failure] Chronic Deficiency and other anemia (18 sources) Iron deficiency anemia; Translations: [Iron deficiency anemia, unspecified] 08-18-2005 Episodic Deficiency and other anemia (18 sources) Anemia; Translations: [Anemia, unspecified] 09-08-2009 Episodic Disorders of lipid metabolism (19 sources) Pure hypercholesterolemia ; Translations: [Pure hypercholesterolemia , unspecified] Onset: 02-01-2024 08-18-2005 Chronic Essential hypertension (1 source) Essential (primary) hypertension; Translations: [Essential (primary) hypertension] Onset: 09-08-2024 Chronic Gastrointestinal hemorrhage (18 sources) Rectal hemorrhage; Translations: [Hemorrhage of anus and rectum] 09-08-2009 Episodic Hemorrhoids (18 sources) Internal hemorrhoids; Translations: [Other hemorrhoids] 12-01-2005 Episodic Immunizations and screening for infectious disease (12 sources) Patient encounter status; Translations: [Encounter for screening for human papillomavirus (HPV)] Episodic Mycoses (6 sources) Candidiasis of mouth; Translations: [Candidal stomatitis] 02-27-2019 Episodic Nonmalignant breast conditions (4 sources) Solitary cyst of breast; Translations: [Solitary cyst of right breast] Onset: 03-17-2025 03-17-2025 Episodic Osteoarthritis (18 sources) Arthropathy of joint of hand; Translations: [Primary osteoarthritis, unspecified hand] Onset: 12-06-2011 12-06-2011 Chronic Other upper respiratory infections (6 sources) Sinusitis; Translations: [Chronic sinusitis, unspecified] 02-16-2019 Chronic Other upper respiratory infections (12 sources) Upper respiratory infection; Translations: [Acute upper respiratory infection, unspecified] 02-16-2019 Episodic Otitis media and related conditions (18 sources) Chronic serous otitis media; Translations: [Chronic serous otitis media, unspecified ear] 08-18-2005 Chronic Residual codes; unclassified (2 sources) Postmenopausal state; Translations: [Asymptomatic menopausal state] 06-18-2024 Episodic Rheumatoid arthritis and related disease (1 source) Inflammatory polyarthropathy; Translations: [Inflammatory polyarthropathy] Onset: 11-26-2024 Chronic Thyroid disorders (18 sources) Hypothyroidism; Translations: [Hypothyroidism, unspecified] 09-08-2009 Chronic Past or Other Problems Problem Classification Problem Date Documented Date Episodic/Chronic Cancer of cervix (20 sources) Atypical squamous cells of undetermined significance on cervical Papanicolaou smear; Translations: [Atypical squamous cells of undetermined significance on cytologic smear of cervix (ASC-US)] Onset: 08-13-2020 08-13-2020 Episodic Contraceptive and procreative management (20 sources) Intrauterine contraceptive device in situ; Translations: [Encounter for routine checking of intrauterine contraceptive device] Onset: 05-03-2010 Resolved: 05-03-2010 05-03-2010 Episodic Other screening for suspected conditions (not mental disorders or infectious disease) (20 sources) Mammography abnormal; Translations: [Other abnormal and inconclusive findings on diagnostic imaging of breast] Onset: 06-03-2007 06-03-2007 Episodic Residual codes; unclassified (1 source) Asymptomatic menopausal state; Translations: [Asymptomatic postmenopausal status] Onset: 08-01-2024 Episodic Sexually transmitted infections (not HIV or hepatitis) (3 sources) Human papillomavirus deoxyribonucleic acid test positive, high risk on cervical specimen; Translations: [Cervical high risk human papillomavirus (HPV) DNA test positive] Onset: 07-22-2024 07-01-2024 Episodic Results Test Name Value Interpretation Reference Range Facility DBT Breast - right diagnosti c for implanton 03-17-2025 IMPRESSION: Stable lesion in the right breast at 12 o'clock, 2 cm from the nipple is probably benign. Differential diagnosis includes a complicated cyst or fibrocystic changes. Follow-up with diagnostic mammogram and ultrasound is recommended in 6 months. BI-RADS Category 3: Probably Benign RISK: Based on the Tyrer-Cuzick (TC) risk assessment model, this patient has a 3.4% lifetime risk of developing breast cancer, meaning they are at average risk for developing breast cancer. However, this is only an estimate based on available history provided on the patient's questionnaire. We encourage all patients to talk with their providers about these results, further recommendations for managing breast health, and appropriate supplemental screening options if the patient has dense breast tissue. Interpreting Radiologist: Ten Luna M.D. Electronically signed on: 03/17/2025 Production Support Specialist: CHRISTY Transcribe Date/Time: Mar 17 2025 8:52A Dictated by: TEN LUNA MD This examination was interpreted and the report reviewed and electronically signed by: TEN LUNA MD on Mar 17 2025 9:39AM [facility] DIVISION OF RADIOLOGY * * *Final Report* * * DATE OF EXAM: Mar 17 2025 9:16AM [facility] 0629 - LEE JESSICA Watson ARIEL RT / PROCEDURE REASON: Solitary cyst of right breast * * * * Physician Interpretation * * * * RESULT: [facility] [address] [place] [address] #[id number] - [facility] JULISAG W ARIEL RT #[id number] - [facility] BREAST LTD RT HISTORY: 65 year-old patient presents for short term follow-up of right breast findings described on prior mammogram. Patient states no personal history of breast cancer. COMPARISON STUDIES: The present examination has been compared to prior imaging studies dated 12/11/2022 (mammogram), 02/07/2023 (ultrasound), 02/07/2023 (mammogram), 07/22/2024 (ultrasound) and 07/22/2024 (mammogram). MAMMOGRAM TECHNIQUE: The study was acquired using full field digital technology and interpreted from soft copy. Digital Breast Tomosynthesis (DBT) images were obtained and used to assist in the interpretation of this examination. MAMMOGRAM FINDINGS: There are scattered areas of fibroglandular density. There is a saline implant in the right breast, which may obscure the breast parenchyma, limiting visualization. Stable benign scattered calcifications throughout the right breast. There is a stable focal asymmetry in the right breast at 12 o'clock, middle depth. ULTRASOUND TECHNIQUE: Targeted ultrasound of the indicated area was performed. Hernandez scale images were saved. ULTRASOUND FINDINGS: Ultrasound demonstrates a stable oval parallel lesion with microlobulated margins measuring 1.1 cm in the right breast at 12 o'clock, 2 cm from the nipple. Internal echotexture is anechoic with internal echoes. Color flow imaging demonstrates vascularity is not present. Differential diagnosis includes a complicated cyst or fibrocystic changes. DIVISION OF RADIOLOGY Provider, [facility] - 03/17/2025 * * *Final Report* * * DATE OF EXAM: Mar 17 2025 9:16AM [facility] 0629 - LEE JULISAG Walter ARIEL RT / PROCEDURE REASON: Solitary cyst of right breast * * * * Physician Interpretation * * * * RESULT: [facility] [address] [place] [address] #[id number] - [facility] JESSICA GEORGE RT #[id number] - [facility] US BREAST LTD RT HISTORY: 65 year-old patient presents for short term follow-up of right breast findings described on prior mammogram. Patient states no personal history of breast cancer. COMPARISON STUDIES: The present examination has been compared to prior imaging studies dated 12/11/2022 (mammogram), 02/07/2023 (ultrasound), 02/07/2023 (mammogram), 07/22/2024 (ultrasound) and 07/22/2024 (mammogram). MAMMOGRAM TECHNIQUE: The study was acquired using full field digital technology and interpreted from soft copy. Digital Breast Tomosynthesis (DBT) images were obtained and used to assist in the interpretation of this examination. MAMMOGRAM FINDINGS: There are scattered areas of fibroglandular density. There is a saline implant in the right breast, which may obscure the breast parenchyma, limiting visualization. Stable benign scattered calcifications throughout the right breast. There is a stable focal asymmetry in the right breast at 12 o'clock, middle depth. ULTRASOUND TECHNIQUE: Targeted ultrasound of the indicated area was performed. Hernandez scale images were saved. ULTRASOUND FINDINGS: Ultrasound demonstrates a stable oval parallel lesion with microlobulated margins measuring 1.1 cm in the right breast at 12 o'clock, 2 cm from the nipple. Internal echotexture is anechoic with internal echoes. Color flow imaging demonstrates vascularity is not present. Differential diagnosis includes a complicated cyst or fibrocystic changes. IMPRESSION IMPRESSION: Stable lesion in the right breast at 12 o'clock, 2 cm from the nipple is probably benign. Differential diagnosis includes a complicated cyst or fibrocystic changes. Follow-up with diagnostic mammogram and ultrasound is recommended in 6 months. BI-RADS Category 3: Probably Benign RISK: Based on the Tyrer-Cuzick (TC) risk assessment model, this patient has a 3.4% lifetime risk of developing breast cancer, meaning they are at average risk for developing breast cancer. However, this is only an estimate based on available history provided on the patient's questionnaire. We encourage all patients to talk with their providers about these results, further recommendations for managing breast health, and appropriate supplemental screening options if the patient has dense breast tissue. Interpreting Radiologist: Ten Luna M.D. Electronically signed on: 03/17/2025 Production Support Specialist: CHRISTY Transcribe Date/Time: Mar 17 2025 8:52A Dictated by: TEN LUNA MD This examination was interpreted and the report reviewed and electronically signed by: TEN LUNA MD on Mar 17 2025 9:39AM EST [facility] LEE DIAG W ARIEL RTon 025 LEE DIAG W ARIEL RT * * *Final Report* * * DATE OF EXAM: Mar 17 2025 9:16AM [facility] 0629 - LEE DIAG W ARIEL RT / PROCEDURE REASON: Solitary cyst of right breast * * * * Physician Interpretation * * * * RESULT: [place] [address] #[id number] - LEE DIAG W ARIEL RT #[id number] - LEE US BREAST LTD RT HISTORY: 65 year-old patient presents for short term follow-up of right breast findings described on prior mammogram. Patient states no personal history of breast cancer. COMPARISON STUDIES: The present examination has been compared to prior imaging studies dated 12/11/2022 (mammogram), 02/07/2023 (ultrasound), 02/07/2023 (mammogram), 07/22/2024 (ultrasound) and 07/22/2024 (mammogram). MAMMOGRAM TECHNIQUE: The study was acquired using full field digital technology and interpreted from soft copy. Digital Breast Tomosynthesis (DBT) images were obtained and used to assist in the interpretation of this examination. MAMMOGRAM FINDINGS: There are scattered areas of fibroglandular density. There is a saline implant in the right breast, which may obscure the breast parenchyma, limiting visualization. Stable benign scattered calcifications throughout the right breast. There is a stable focal asymmetry in the right breast at 12 o'clock, middle depth. ULTRASOUND TECHNIQUE: Targeted ultrasound of the indicated area was performed. Hernandez scale images were saved. ULTRASOUND FINDINGS: Ultrasound demonstrates a stable oval parallel lesion with microlobulated margins measuring 1.1 cm in the right breast at 12 o'clock, 2 cm from the nipple. Internal echotexture is anechoic with internal echoes. Color flow imaging demonstrates vascularity is not present. Differential diagnosis includes a complicated cyst or fibrocystic changes. IMPRESSION: Stable lesion in the right breast at 12 o'clock, 2 cm from the nipple is probably benign. Differential diagnosis includes a complicated cyst or fibrocystic changes. Follow-up with diagnostic mammogram and ultrasound is recommended in 6 months. BI-RADS Category 3: Probably Benign RISK: Based on the Tyrer-Cuzick (TC) risk assessment model, this patient has a 3.4% lifetime risk of developing breast cancer, meaning they are at average risk for developing breast cancer. However, this is only an estimate based on available history provided on the patient's questionnaire. We encourage all patients to talk with their providers about these results, further recommendations for managing breast health, and appropriate supplemental screening options if the patient has dense breast tissue. Interpreting Radiologist: Ten Luna M.D. Electronically signed on: 03/17/2025 Production Support Specialist: CHRISTY Transcribe Date/Time: Mar 17 2025 8:52A Dictated by: TEN LUNA MD This examination was interpreted and the report reviewed and electronically signed by: TEN LUNA MD on Mar 17 2025 9:39AM EST [id number] Normal [facility] [employer] BREAST LTD RTon 03-17 [facility] [employer] BREAST LTD RT * * *Final Report* * * DATE OF EXAM: Mar 17 2025 9:30AM [facility] [id number] - [facility] [employer] BREAST [employer] RT / PROCEDURE REASON: Solitary cyst of right breast * * * * Physician Interpretation * * * * [facility] [place] [address] #[id number] - [facility] JESSICA GEORGE RT #[id number] - [facility] [employer] BREAST [employer] RT HISTORY: 65 year-old patient presents for short term follow-up of right breast findings described on prior mammogram. Patient states no personal history of breast cancer. COMPARISON STUDIES: The present examination has been compared to prior imaging studies dated 12/11/2022 (mammogram), 02/07/2023 (ultrasound), 02/07/2023 (mammogram), 07/22/2024 (ultrasound) and 07/22/2024 (mammogram). MAMMOGRAM TECHNIQUE: The study was acquired using full field digital technology and interpreted from soft copy. Digital Breast Tomosynthesis (DBT) images were obtained and used to assist in the interpretation of this examination. MAMMOGRAM FINDINGS: There are scattered areas of fibroglandular density. There is a saline implant in the right breast, which may obscure the breast parenchyma, limiting visualization. Stable benign scattered calcifications throughout the right breast. There is a stable focal asymmetry in the right breast at 12 o'clock, middle depth. ULTRASOUND TECHNIQUE: Targeted ultrasound of the indicated area was performed. Hernandez scale images were saved. ULTRASOUND FINDINGS: Ultrasound demonstrates a stable oval parallel lesion with microlobulated margins measuring 1.1 cm in the right breast at 12 o'clock, 2 cm from the nipple. Internal echotexture is anechoic with internal echoes. Color flow imaging demonstrates vascularity is not present. Differential diagnosis includes a complicated cyst or fibrocystic changes. IMPRESSION: Stable lesion in the right breast at 12 o'clock, 2 cm from the nipple is probably benign. Differential diagnosis includes a complicated cyst or fibrocystic changes. Follow-up with diagnostic mammogram and ultrasound is recommended in 6 months. BI-RADS Category 3: Probably Benign RISK: Based on the Tyrer-Cuzick (TC) risk assessment model, this patient has a 3.4% lifetime risk of developing breast cancer, meaning they are at average risk for developing breast cancer. However, this is only an estimate based on available history provided on the patient's questionnaire. We encourage all patients to talk with their providers about these results, further recommendations for managing breast health, and appropriate supplemental screening options if the patient has dense breast tissue. Interpreting Radiologist: Ten Luna M.D. Electronically signed on: 03/17/2025 Production Support Specialist: CHRISTY Transcribe Date/Time: Mar 17 2025 9:25A Dictated by : TEN LUNA MD This examination was interpreted and the report reviewed and electronically signed by: TEN LUNA MD on Mar 17 2025 9:39AM EST [id number] Normal [facility] No Panel InformationOrdered By: [facility] Provider on 03-17-2025 [facility] No Panel Informationon 03-17 Radiology Study observation (narrative) [facility] US Breast - right limitedon 03-17-2025 IMPRESSION: Stable lesion in the right breast at 12 o'clock, 2 cm from the nipple is probably benign. Differential diagnosis includes a complicated cyst or fibrocystic changes. Follow-up with diagnostic mammogram and ultrasound is recommended in 6 months. BI-RADS Category 3: Probably Benign RISK: Based on the Tyrer-Cuzick (TC) risk assessment model, this patient has a 3.4% lifetime risk of developing breast cancer, meaning they are at average risk for developing breast cancer. However, this is only an estimate based on available history provided on the patient's questionnaire. We encourage all patients to talk with their providers about these results, further recommendations for managing breast health, and appropriate supplemental screening options if the patient has dense breast tissue. Interpreting Radiologist: Ten Luna M.D. Electronically signed on: 03/17/2025 Production Support Specialist: CHRISTY Transcribe Date/Time: Mar 17 2025 9:25A Dictated by : TEN LUNA MD This examination was interpreted and the report reviewed and electronically signed by: TEN LUNA MD on Mar 17 2025 9:39AM [facility] DIVISION OF RADIOLOGY * * *Final Report* * * DATE OF EXAM: Mar 17 2025 9:30AM [facility] 0594 - [facility] [employer] BREAST [employer] RT / PROCEDURE REASON: Solitary cyst of right breast * * * * Physician Interpretation * * * * [place] [address] #[id number] - [facility] JESSICA Watson ARIEL RT #[id number] - [facility] US BREAST LTD RT HISTORY: 65 year-old patient presents for short term follow-up of right breast findings described on prior mammogram. Patient states no personal history of breast cancer. COMPARISON STUDIES: The present examination has been compared to prior imaging studies dated 12/11/2022 (mammogram), 02/07/2023 (ultrasound), 02/07/2023 (mammogram), 07/22/2024 (ultrasound) and 07/22/2024 (mammogram). MAMMOGRAM TECHNIQUE: The study was acquired using full field digital technology and interpreted from soft copy. Digital Breast Tomosynthesis (DBT) images were obtained and used to assist in the interpretation of this examination. MAMMOGRAM FINDINGS: There are scattered areas of fibroglandular density. There is a saline implant in the right breast, which may obscure the breast parenchyma, limiting visualization. Stable benign scattered calcifications throughout the right breast. There is a stable focal asymmetry in the right breast at 12 o'clock, middle depth. ULTRASOUND TECHNIQUE: Targeted ultrasound of the indicated area was performed. Hernandez scale images were saved. ULTRASOUND FINDINGS: Ultrasound demonstrates a stable oval parallel lesion with microlobulated margins measuring 1.1 cm in the right breast at 12 o'clock, 2 cm from the nipple. Internal echotexture is anechoic with internal echoes. Color flow imaging demonstrates vascularity is not present. Differential diagnosis includes a complicated cyst or fibrocystic changes. DIVISION OF RADIOLOGY Provider, [facility] - 03/17/2025 * * *Final Report* * * DATE OF EXAM: Mar 17 2025 9:30AM WRU [id number] - [facility] [employer] RT / PROCEDURE REASON: Solitary cyst of right breast * * * * Physician Interpretation * * * * [place] [address] #[id number] - [facility] JESSICA Watson ARIEL RT #[id number] - [facility] [employer] RT HISTORY: 65 year-old patient presents for short term follow-up of right breast findings described on prior mammogram. Patient states no personal history of breast cancer. COMPARISON STUDIES: The present examination has been compared to prior imaging studies dated 12/11/2022 (mammogram), 02/07/2023 (ultrasound), 02/07/2023 (mammogram), 07/22/2024 (ultrasound) and 07/22/2024 (mammogram). MAMMOGRAM TECHNIQUE: The study was acquired using full field digital technology and interpreted from soft copy. Digital Breast Tomosynthesis (DBT) images were obtained and used to assist in the interpretation of this examination. MAMMOGRAM FINDINGS: There are scattered areas of fibroglandular density. There is a saline implant in the right breast, which may obscure the breast parenchyma, limiting visualization. Stable benign scattered calcifications throughout the right breast. There is a stable focal asymmetry in the right breast at 12 o'clock, middle depth. ULTRASOUND TECHNIQUE: Targeted ultrasound of the indicated area was performed. Hernandez scale images were saved. ULTRASOUND FINDINGS: Ultrasound demonstrates a stable oval parallel lesion with microlobulated margins measuring 1.1 cm in the right breast at 12 o'clock, 2 cm from the nipple. Internal echotexture is anechoic with internal echoes. Color flow imaging demonstrates vascularity is not present. Differential diagnosis includes a complicated cyst or fibrocystic changes. IMPRESSION IMPRESSION: Stable lesion in the right breast at 12 o'clock, 2 cm from the nipple is probably benign. Differential diagnosis includes a complicated cyst or fibrocystic changes. Follow-up with diagnostic mammogram and ultrasound is recommended in 6 months. BI-RADS Category 3: Probably Benign RISK: Based on the Tyrer-Cuzick (TC) risk assessment model, this patient has a 3.4% lifetime risk of developing breast cancer, meaning they are at average risk for developing breast cancer. However, this is only an estimate based on available history provided on the patient's questionnaire. We encourage all patients to talk with their providers about these results, further recommendations for managing breast health, and appropriate supplemental screening options if the patient has dense breast tissue. Interpreting Radiologist: Ten Luna M.D. Electronically signed on: 03/17/2025 Production Support Specialist: CHRISTY Transcrijason Date/Time: Mar 17 2025 9:25A Dictated by : TEN LUNA MD This examination was interpreted and the report reviewed and electronically signed by: TEN LUNA MD on Mar 17 2025 9:39AM EST [facility] Hips B/L min 2 views w/ Pelv kristina 11-07-2024 Hips B/L min 2 views w/ Pelvis [facility] Services [address] [place] [address] Hips B/L min 2 views w/ Pelvis MR#: [id number] Acct: [id number] Name: PATTI REYES Rep #: [id number] : 1960 F 64 From: Edson Cage PCP: Dr. Leisa Blount MD Status: REG CLI Study: Hips B/L min 2 views w/ Pelvis Date of Exam: 0 11/07/24 Exam# [id number] Ordering Dr: Shakira Santa MD PROCEDURE: HIPS B/L MIN 2 VIEWS W/ PELVIS REASON FOR EXAM: Pain. TECHNIQUE: Five view bilateral hip series including the AP pelvis COMPARISON: None provided. RAD/Hips B/L min 2 views w/ Pelvis IMPRESSION: Prominent degenerative changes are seen of the visualized lower lumbar spine. Minimal sacroiliac joint degenerative changes are is noted. The hip joints demonstrate no significant arthritic process or joint space narrowing. No evidence of femoral head osteonecrosis. No fracture or dislocation is evident. Reading Location: [id number] CC: Dr. Leisa Blount MD; Dr. Shakira Santa MD Production Support Specialist: Signed Normal [facility] CBC W/Diff, Automatedon 10-10 Absolute Lymph 2.51 X10 3/uL Normal 0.83-4.51 [facility] Comment on above: Performed By: #### L 500.2500, L501.9520, L500.4100 #### [facility] [address] [place], [address] Absolute Neut 4.2 X10 3/uL Normal 2.0-7.7 [facility] Comment on above: Performed By: #### L 500.2500, L501.9520, L500.4100 #### [facility] [address] [place], [address] Basophils/100 WBC (Bld) 0.9 % Normal 0-1 [facility] Comment on above: Performed By: #### L 500.2500, L501.9520, L500.4100 #### [facility] [address] [place], [address] Eosinophils/100 WBC (Bld) 2.4 % Normal 0-5 [facility] Comment on above: Performed By: #### L 500.2500, L501.9520, L500.4100 #### [facility] [address] [place], [address] Erythrocyte distribution width (RBC) [Ratio] 13.1 % Normal 11.6-14.6 [facility] Comment on above: Performed By: #### L 500.2500, L501.9520, L500.4100 #### [facility] [address] [place], [address] Hematocrit (Bld) [Volume fraction] 42.4 % Normal 37-47 [facility] Comment on above: Performed By: #### L 500.2500, L501.9520, L500.4100 #### [facility] [address] [place], [address] Hemoglobin (Bld) [Mass/Vol] 14.1 g/dL Normal 12.0-15.0 [facility] Comment on above: Performed By: #### L 500.2500, L501.9520, L500.4100 #### [facility] [address] [place], [address] IG% 0.300 Normal 0.0-0.9 [facility] Comment on above: Result Comment: IG% - Immature Granulocytes (promyelocytes, myelocytes and metamyelocytes) > 1% indicates that a LEFT SHIFT is Present. Performed By: #### L 500.2500, L501.9520, L500.4100 #### [facility] [address] [place], [address] Lymphocytes/100 WBC (Bld) 31.8 % Normal 19-41 [facility] Comment on above: Performed By: #### L 500.2500, L501.9520, L500.4100 #### [facility] [address] [place], [address] MCH (RBC) [Entitic mass] 31.2 pg Normal 27.0-32.0 [facility] Comment on above: Performed By: #### L 500.2500, L501.9520, L500.4100 #### [facility] [address] [place], [address] MCHC (RBC) [Mass/Vol] 33.3 g/dL Normal 32-36 [facility] Comment on above: Performed By: #### L 500.2500, L501.9520, L500.4100 #### [facility] [address] [place], [address] MCV (RBC) [Entitic vol] 93.8 fL Normal 81-99 [facility] Comment on above: Performed By: #### L 500.2500, L501.9520, L500.4100 #### [facility] [address] [place], [address] Monocytes/100 WBC (Bld) 11.3 % High 0-10 [facility] Comment on above: Performed By: #### L 500.2500, L501.9520, L500.4100 #### [facility] [address] [place], [address] Neutrophils/100 WBC (Bld) 53.3 % Normal 47-70 [facility] Comment on above: Performed By: #### L 500.2500, L501.9520, L500.4100 #### [facility] [address] [place], [address] Nucleated RBC (Bld) [#/Vol] 0 10*3/uL Normal 0-5 [facility] Comment on above: Performed By: #### L 500.2500, L501.9520, L500.4100 #### [facility] [address] [place], [address] Platelet mean volume (Bld) [Entitic vol] 10.9 fL Normal 6.2-12.0 [facility] Comment on above: Performed By: #### L 500.2500, L501.9520, L500.4100 #### [facility] [address] [place], [address] Platelets (Bld) [#/Vol] 306 10*3/uL Normal 150-450 [facility] Comment on above: Performed By: #### L 500.2500, L501.9520, L500.4100 #### [facility] [address] [place], [address] RBC (Bld) [#/Vol] 4.52 10*6/uL Normal 4.2-5.4 [facility] Comment on above: Performed By: #### L 500.2500, L501.9520, L500.4100 #### [facility] [address] [place], [address] RDW SD 45.1 fl High 35.1-43.9 [facility] Comment on above: Performed By: #### L 500.2500, L501.9520, L500.4100 #### [facility] [address] [place], [address] WBC (Bld) [#/Vol] 7.9 10*3/uL Normal 4.4-11.0 [facility] Comment on above: Performed By: #### L 500.2500, L501.9520, L500.4100 #### [facility] [address] [place], [address] Comprehensive Metabolic [facility] 11-06-2024 Albumin [Mass/Vol] 3.8 g/dL Normal 3.2-5.0 [facility] Comment on above: Performed By: #### L 500.2500, L501.9520, L500.4100 #### [facility] [address] [place], [address] Albumin/Globulin [Mass ratio] 1.0 {ratio} Normal 0.9-2.4 [facility] Comment on above: Performed By: #### L 500.2500, L501.9520, L500.4100 #### [facility] [address] [place], [address] ALK P 83 U/L Normal 45-117 [facility] Comment on above: Performed By: #### L 500.2500, L501.9520, L500.4100 #### [facility] [address] [place], [address] ALT [Catalytic activity/Vol] 23 U/L Normal 13-56 [facility] Comment on above: Performed By: #### L 500.2500, L501.9520, L500.4100 #### [facility] [address] [place], [address] AST [Catalytic activity/Vol] 21 U/L Normal 15-37 [facility] Comment on above: Performed By: #### L 500.2500, L501.9520, L500.4100 #### [facility] [address] [place], [address] Bilirubin [Mass/Vol] 0.50 mg/dL Normal 0.20-1.00 [facility] Comment on above: Result Comment: For patients on eltrombopag therapy, use of Dimension [place] TBIL is not recommended. Performed By: #### L 500.2500, L501.9520, L500.4100 #### [facility] [address] [place], [address] BUN/CRE 33.5 RATIO High 10-20 [facility] Comment on above: Performed By: #### L 500.2500, L501.9520, L500.4100 #### [facility] [address] [place], [address] CA,Total 10.3 mg/dL High 8.5-10.1 [facility] Comment on above: Performed By: #### L 500.2500, L501.9520, L500.4100 #### [facility] [address] [place], [address] Chloride [Moles/Vol] 104 mmol/L Normal 98-107 [facility] Comment on above: Performed By: #### L 500.2500, L501.9520, L500.4100 #### [facility] [address] [place], [address] CO2 [Moles/Vol] 29.0 mmol/L Normal 21.0-32.0 [facility] Comment on above: Performed By: #### L 500.2500, L501.9520, L500.4100 #### [facility] [address] [place], [address] Creatinine [Mass/Vol] 0.66 mg/dL Normal 0.55-1.02 [facility] Comment on above: Result Comment: The validity of the calculated GFR GFRAA in patients over 70 years has not been determined. Clinical correlation is essential. Performed By: #### L 500.2500, L501.9520, L500.4100 #### [facility] [address] [place], [address] EST GFR - AA 116 mL/min Normal >60 [facility] Comment on above: Result Comment: Afri can [place] GFR Calc Performed By: #### L 500.2500, L501.9520, L500.4100 #### [facility] [address] [place], [address] GAP 6 Normal 5-15 [facility] Comment on above: Performed By: #### L 500.2500, L501.9520, L500.4100 #### [facility] [address] [place], [address] GFR/1.73 sq M.predicted among non-blacks MDRD (S/P/Bld) [Vol rate/Area] 96 mL/min/{1.73_m2} Normal >60 [facility] Comment on above: Result Comment: Non- GFR Calc Performed By: #### L 500.2500, L501.9520, L500.4100 #### [facility] [address] [place], [address] Globulin (S) [Mass/Vol] 3.7 g/dL Normal 2.2-4.2 [facility] Comment on above: Performed By: #### L 500.2500, L501.9520, L500.4100 #### [facility] [address] [place], [address] Glucose [Mass/Vol] 96 mg/dL Normal 74-106 [facility] Comment on above: Performed By: #### L 500.2500, L501.9520, L500.4100 #### [facility] [address] [place], [address] Potassium [Moles/Vol] 4.1 mmol/L Normal 3.5-5.1 [facility] Comment on above: Performed By: #### L 500.2500, L501.9520, L500.4100 #### [facility] [address] [place], [address] Sodium [Moles/Vol] 139 mmol/L Normal 136-145 [facility] Comment on above: Performed By: #### L 500.2500, L501.9520, L500.4100 #### [facility] [address] [place], [address] T PROT 7.5 g/dL Normal 6.4-8.2 [facility] Comment on above: Performed By: #### L 500.2500, L501.9520, L500.4100 #### [facility] [address] [place], [address] Urea nitrogen [Mass/Vol] 22 mg/dL High 7-18 [facility] Comment on above: Performed By: #### L 500.2500, L501.9520, L500.4100 #### [facility] [address] [place], [address] Basic Metabolic Profile (BMP )on 08-14-2024 BUN/CRE 26.9 RATIO High 10-20 [facility] Comment on above: Order Comment: Order Date: 07/08/24 Order Info: 666-10 - BMP Order Info: - LIPID Order Info: 3015-3 - TSH Performed By: #### L 500.2500, L501.9520, L500.4100 #### [facility] [address] [place], [address] CA,Total 10.1 mg/dL Normal 8.5-10.1 [facility] Comment on above: Order Comment: Order Date: 07/08/24 Order Info: 666-10 - BMP Order Info: - LIPID Order Info: 3 - TSH Performed By: #### L 500.2500, L501.9520, L500.4100 #### [facility] [address] [place], [address] Chloride [Moles/Vol] 105 mmol/L Normal 98-107 [facility] Comment on above: Order Comment: Order Date: 07/08/24 Order Info: 666-10 - BMP Order Info: - LIPID Order Info: 3 - TSH Performed By: #### L 500.2500, L501.9520, L500.4100 #### [facility] [address] [place], [address] CO2 [Moles/Vol] 32.0 mmol/L Normal 21.0-32.0 [facility] Comment on above: Order Comment: Order Date: 07/08/24 Order Info: 666-10 - BMP Order Info: 23788-0 - LIPID Order Info: 3015-3 - TSH Performed By: #### L 500.2500, L501.9520, L500.4100 #### [facility] [address] [place], [address] Creatinine [Mass/Vol] 0.67 mg/dL Normal 0.55-1.02 [facility] Comment on above: Order Comment: Order Date: 07/08/24 Order Info: 666-10 - BMP Order Info: - LIPID Order Info: 3 - TSH Result Comment: The validity of the calculated GFR GFRAA in patients over 70 years has not been determined. Clinical correlation is essential. Performed By: #### L 500.2500, L501.9520, L500.4100 #### [facility] [address] [place], [address] EST GFR - AA 113 mL/min Normal >60 [facility] Comment on above: Order Comment: Order Date: 07/08/24 Order Info: 666-10 - BMP Order Info: - LIPID Order Info: 3015-12 - TSH Result Comment: Afri can [place] GFR Calc Performed By: #### L 500.2500, L501.9520, L500.4100 #### [facility] [address] [place], [address] GAP 3 Low 5-15 [facility] Comment on above: Order Comment: Order Date: 07/08/24 Order Info: 666-10 - BMP Order Info: - LIPID Order Info: 3015-12 - TSH Performed By: #### L 500.2500, L501.9520, L500.4100 #### [facility] [address] [place], [address] GFR/1.73 sq M.predicted among non-blacks MDRD (S/P/Bld) [Vol rate/Area] 94 mL/min/{1.73_m2} Normal >60 [facility] Comment on above: Order Comment: Order Date: 07/08/24 Order Info: 666-10 - BMP Order Info: - LIPID Order Info: 3015-12 - TSH Result Comment: Non- GFR Calc Performed By: #### L 500.2500, L501.9520, L500.4100 #### [facility] [address] [place], [address] Glucose [Mass/Vol] 97 mg/dL Normal 74-106 [facility] Comment on above: Order Comment: Order Date: 07/08/24 Order Info: 666-10 - BMP Order Info: - LIPID Order Info: 3 - TSH Performed By: #### L 500.2500, L501.9520, L500.4100 #### [facility] [address] [place], [address] Potassium [Moles/Vol] 3.5 mmol/L Normal 3.5-5.1 [facility] Comment on above: Order Comment: Order Date: 07/08/24 Order Info: 666-10 - BMP Order Info: - LIPID Order Info: 3015-12 - TSH Performed By: #### L 500.2500, L501.9520, L500.4100 #### [facility] [address] [place], [address] Sodium [Moles/Vol] 140 mmol/L Normal 136-145 [facility] Comment on above: Order Comment: Order Date: 07/08/24 Order Info: 666-10 - BMP Order Info: - LIPID Order Info: 3 - TSH Performed By: #### L 500.2500, L501.9520, L500.4100 #### [facility] [address] [place], [address] Urea nitrogen [Mass/Vol] 18 mg/dL Normal 7-18 [facility] Comment on above: Order Comment: Order Date: 07/08/24 Order Info: 666-10 - BMP Order Info: - LIPID Order Info: 3 - TSH Performed By: #### L 500.2500, L501.9520, L500.4100 #### [facility] [address] [place], [address] Lipid Profileon 08-14-2024 Cholesterol [Mass/Vol] 199 mg/dL Normal 200 [facility] Comment on above: Order Comment: Order Date: 07/08/24 Order Info: 666-10 - BMP Order Info: 08864-7 - LIPID Order Info: 3015-3 - TSH Result Comment: <200 mg/dL Desirable 200-240 mg/dL Borderline >240 mg/dL High Risk Performed By: #### L 500.2500, L501.9520, L500.4100 #### [facility] [address] [place], [address] Cholesterol in HDL [Mass/Vol] 73 mg/dL Normal [facility] Comment on above: Order Comment: Order Date: 07/08/24 Order Info: 666-10 - BMP Order Info: - LIPID Order Info: 3015-3 - TSH Result Comment: The drugs N-Acetylcysteine and Metamizole may falsely depress this assay. Reference Range HDL <40 mg/dL Low HDL Cholesterol HDL >or= 60 mg/dL High HDL Cholesterol Performed By: #### L 500.2500, L501.9520, L500.4100 #### [facility] [address] [place], [address] Cholesterol in LDL [Mass/Vol] 108 mg/dL Normal 0-130 [facility] Comment on above: Order Comment: Order Date: 07/08/24 Order Info: 666-10 - BMP Order Info: [id number] - LIPID Order Info: 3015-3 - TSH Performed By: #### L 500.2500, L501.9520, L500.4100 #### [facility] [address] [place], [address] Cholesterol in VLDL [Mass/Vol] 18 mg/dL Normal 5-40 [facility] Comment on above: Order Comment: Order Date: 07/08/24 Order Info: 666-10 - BMP Order Info: - LIPID Order Info: 3016-3 - TSH Performed By: #### L 500.2500, L501.9520, L500.4100 #### [facility] [address] [place], [address] Triglyceride [Mass/Vol] 88 mg/dL Normal [facility] Comment on above: Order Comment: Order Date: 07/08/24 Order Info: 0667-1 - BMP Order Info: 92593-2 - LIPID Order Info: 30163 - TSH Result Comment: The drugs N-Acetylcysteine and Metamizole may falsely depress this assay. Serum Triglycerides Reference Interval Normal <150 mg/dL Borderline high 150 - 199 mg/dL High 200 - 499 mg/dL Very High > or = 500 mg/dL Performed By: #### L 500.2500, L501.9520, L500.4100 #### [facility] [address] [place], [place], [address] Thyroid Stim Hormone (TSH)on 08-14-2024 TSH 2.270 uIU/mL Normal 0.358-3.740 [facility] Comment on above: Order Comment: Order Date: 07/08/24 Order Info: 0667-1 - BMP Order Info: 03178-0 - LIPID Order Info: 30163 - TSH Performed By: #### L 500.2500, L501.9520, L500.4100 #### [facility] [address] [place], [place], [address] [facility] PATTI REYES ([id number]) 1960 F Date Time Provider Department 08/11/24 LANDY GERONIMO During your visit today, we recorded the following information about you: Landy Geronimo APRN.CNP 08/11/2024 1:07 PM Signed AG pt-Please let the pt know that her bone density show osteoporosis. I would recommend starting Fosamax or she could discuss other options with her PCP. Landy Geronimo APRN.Chelle Mccloud RN 08/11/2024 1:48 PM Signed Patient notified. Updated chart with patient's current PCP. Report faxed. Patient has appointment with PCP on Sunday. Chelle Aguirre RN Allergies As of Date: 08/11/2024 Noted Allergy Reaction CALADRYL (PRAMOXINE-CALAMINE) 08/10/2006 Date Reviewed: 07/22/2024 Reviewed by: Maryjane Huntley MD - Fully Assessed Reason for Visit: Results [95] Prescriptions as of 08/11/2024 - levothyroxine (SYNTHROID) 125 mcg tablet Take 1 tablet by mouth once daily. - lisinopril-hydrochloroth iazide (PRINZIDE,ZESTORETIC) 20-12.5 mg per tablet Take 1 tablet by mouth once daily. - PAROXETINE HCL (PAXIL ORAL) Take 25 mg by mouth. - hydrOXYchloroQUINE (PLAQUENIL) 200 mg tablet Take by mouth once daily. - atorvastatin (LIPITOR) 10 mg tablet Take 1 tablet by mouth once daily. - MULTIVITAMIN TAB Take one(1) tablet daily. Problem List As Of Date 08/11/2024 Noted Resolved CHR SEROUS OM SIMP/NOS [H65.20] DERMATITIS NOS [L25.9] PURE HYPERCHOLESTEROLEM [E78.00] IRON DEFIC ANEMIA NOS [D50.9] PANIC DISORDER WITHOUT AGORAPHOBIA [F41.0] Surveillance of Previously Prescribed Contracep* 05/03/2010 INT HEMORRHOID W/O COMPL [K64.8] UNSP ABNORMAL MAMMOGRAM [R92.8] 06/03/2007 Hypothyroid [E03.9] Anemia [D64.9] Rectal Bleeding [K62.5] IUD Surveillance [Z30.431] 05/03/2010 [facility] arthritis [M19.049] 12/06/2011 ASCUS with positive high risk HPV cervical [R87*08/13/2020 Encounter Status:Closed by CHELLE AGUIRRE on 08/11/24 Normal [facility] BD DXA - AXIAL SKELETONon BD DXA - AXIAL SKELETON * * *Final Report* * * DATE OF EXAM: Aug 01 2024 3:30PM [facility] - BD DXA - AXIAL SKELETON / PROCEDURE REASON: multiple diagnoses * * * * Physician Interpretation * * * * EXAMINATION: DXA BONE DENSITOMETRY BD DXA - AXIAL SKELETON, BD DXA TRABECLR BONE SCORE (TBS) PATIENT DEMOGRAPHICS: Age: 64 years, Gender: Female SCANNER INFORMATION: DXA Model: iVengo - NeurAxon C 17379 Date Scanned: 08/01/2024 3:30 PM CLINICAL HISTORY: DIAGNOSTIC Encounter for screening for osteoporosis Asymptomatic postmenopausal status . RISK FACTORS FOR OSTEOPOROSIS AND ASSOCIATED FRACTURES REPORTED BY THIS PATIENT: Please refer to Bone Health Questionnaire in the EMR CURRENT THERAPY: Please refer to Bone Health Questionnaire in the EMR TECHNICAL LIMITATIONS: None RESULTS: Lumbar spine (L1, L2, L3, L4): 0.837 g/cm2, T-score -1.9, Z-score -0.1 Right Femoral Neck: 0.618 g/cm2, T-score -2.1, Z-score -0.5 Right Total Hip: 0.728 g/cm2, T-score -1.8, Z-score -0.5 Left Femoral Neck: 0.565 g/cm2, T-score -2.6, Z-score -1.0 Left Total Hip: 0.720 g/cm2, T-score -1.8, Z-score -0.5 No comparison data - the patient has not had a previous bone density in the [facility] or the previous bone density was performed on a different DXA machine (new, updated model or different location) within the [facility]. VERTEBRAL FRACTURE ASSESSMENT Not performed. TRABECULAR BONE ASSESSMENT TBS score: 1.237 Bone micro-architecture: Partially degraded (1.231 - 1.310) IMPRESSION: THE LOWEST T-SCORE IS -2.6 IN THE LEFT HIP 1) DIAGNOSIS (based on BMD alone): OSTEOPOROSIS Caution: Medical conditions other than osteoporosis may cause low bone density, such as osteomalacia or renal osteodystrophy. Clinical correlation is necessary. 2) FRACTURE RISK (Based on TBS adjusted FRAX): 10-year absolute fracture risk: - major osteoporotic fracture = 18 % - hip fracture = 3.2 % - A diagnosis of Osteoporosis, a 10 year probability of hip fracture greater than or equal to 3% or a 10 year probability of any major osteoporosis-related fracture greater than or equal to 20% should be considered for treatment. - DXA scanner generated FRAX calculations may slightly differ from online FRAX calculations due to differences in software versions. - All recommendations and calculations are to be considered as guidelines and should not replace sound clinical judgement - Caution: Fracture risk may be increased independent of BMD in patients with corticosteroid use, age greater than 65 years, or a history of prior fragility fracture. RECOMMENDATIONS: Follow-up in 2 years or as clinically indicated. Patients that are taking corticosteroids, are transplant recipients or have hyperparathyroidism should have annual follow-up. Follow-up scans should always be done on the same machine for accurate comparison. FOR MORE INFORMATION ABOUT DIAGNOSIS AND TREATMENT: [facility] Osteoporosis and Metabolic Bone Disease:? www.ccf.org/arthritis/os eddie National Osteoporosis Foundation:? www.nof.org International Society of Clinical Densitometry www.iscd.org Production Support Specialist: DAPHNE Transcribe Date/Time: Aug 11 2024 12:47P Dictated by : MIMI MONTERROSO MD This examination was interpreted and the report reviewed and electronically signed by: MIMI MONTERROSO MD on Aug 11 2024 12:49PM EST [id number] -2.6 Normal [facility] BD DXA TRABECLR BONE SCORE ( TBS)on 08-01-2024 BD DXA TRABECLR BONE SCORE (TBS) * * *Final Report* * * DATE OF EXAM: Aug 01 2024 3:43PM [facility] 0801 - BD DXA TRABECLR BONE SCORE (TBS) / PROCEDURE REASON: multiple diagnoses * * * * Physician Interpretation * * * * EXAMINATION: DXA BONE DENSITOMETRY BD DXA - AXIAL SKELETON, BD DXA TRABECLR BONE SCORE (TBS) PATIENT DEMOGRAPHICS: Age: 64 years, Gender: Female SCANNER INFORMATION: DXA Model: iVengo - NeurAxon C 94875 Date Scanned: 08/01/2024 3:30 PM CLINICAL HISTORY: DIAGNOSTIC Encounter for screening for osteoporosis Asymptomatic postmenopausal status . RISK FACTORS FOR OSTEOPOROSIS AND ASSOCIATED FRACTURES REPORTED BY THIS PATIENT: Please refer to Bone Health Questionnaire in the EMR CURRENT THERAPY: Please refer to Bone Health Questionnaire in the EMR TECHNICAL LIMITATIONS: None RESULTS: Lumbar spine (L1, L2, L3, L4): 0.837 g/cm2, T-score -1.9, Z-score -0.1 Right Femoral Neck: 0.618 g/cm2, T-score -2.1, Z-score -0.5 Right Total Hip: 0.728 g/cm2, T-score -1.8, Z-score -0.5 Left Femoral Neck: 0.565 g/cm2, T-score -2.6, Z-score -1.0 Left Total Hip: 0.720 g/cm2, T-score -1.8, Z-score -0.5 No comparison data - the patient has not had a previous bone density in the [facility] or the previous bone density was performed on a different DXA machine (new, updated model or different location) within the [facility]. VERTEBRAL FRACTURE ASSESSMENT Not performed. TRABECULAR BONE ASSESSMENT TBS score: 1.237 Bone micro-architecture: Partially degraded (1.231 - 1.310) IMPRESSION: THE LOWEST T-SCORE IS -2.6 IN THE LEFT HIP 1) DIAGNOSIS (based on BMD alone): OSTEOPOROSIS Caution: Medical conditions other than osteoporosis may cause low bone density, such as osteomalacia or renal osteodystrophy. Clinical correlation is necessary. 2) FRACTURE RISK (Based on TBS adjusted FRAX): 10-year absolute fracture risk: - major osteoporotic fracture = 18 % - hip fracture = 3.2 % - A diagnosis of Osteoporosis, a 10 year probability of hip fracture greater than or equal to 3% or a 10 year probability of any major osteoporosis-related fracture greater than or equal to 20% should be considered for treatment. - DXA scanner generated FRAX calculations may slightly differ from online FRAX calculations due to differences in software versions. - All recommendations and calculations are to be considered as guidelines and should not replace sound clinical judgement - Caution: Fracture risk may be increased independent of BMD in patients with corticosteroid use, age greater than 65 years, or a history of prior fragility fracture. RECOMMENDATIONS: Follow-up in 2 years or as clinically indicated. Patients that are taking corticosteroids, are transplant recipients or have hyperparathyroidism should have annual follow-up. Follow-up scans should always be done on the same machine for accurate comparison. FOR MORE INFORMATION ABOUT DIAGNOSIS AND TREATMENT: [facility] for Osteoporosis and Metabolic Bone Disease:? www.ccf.org/arthritis/os eddie National Osteoporosis Foundation:? www.nof.org International Society of Clinical Densitometry www.iscd.org Production Support Specialist: DAPHNE Transcribe Date/Time: Aug 11 2024 12:47P Dictated by : MIMI MONTERROSO MD This examination was interpreted and the report reviewed and electronically signed by: MIMI MONTERROSO MD on Aug 11 2024 12:49PM EST [id number] -2.6 Normal [facility] CNOVon 07-22-2024 CNOV Office Visit (OBGYWM ) -------- PATTI REYES ([id number]) 1960 F Date Time Provider Department 07/22/24 3:20 PM MARYJANE HUNTLEY OBGYWM During your visit today, we recorded the following information about you: Blood pressure Weight 102/64 61.2 kg Maryjane Huntley MD 07/22/2024 4:01 PM Signed Carmen is a 64 year old Female who presents today for a colposcopy. The patient's last pap smear was ASCUS with positive HPV-non 16/18 type from June 2024. Patient has a history of abnormal pap: Yes. The patient has had prior treatment: cone bx. 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 Maryjane Huntley M.D. PROCEDURE: EXTERNAL GENITALIA: Normal in appearance without lesions VAGINA: Normal in appearance without lesions, atrophic with flattened epithelium CERVIX: Speculum placed in vagina and excellent visualization of cervix achieved. Cervix swabbed x 3 with 3% acetic acid solution. Cervix very flush with vagina, external os is a dimple visible but difficult to enter w/ endo brusha nd ECC curetteCervix grossly normal. Squamocolumnar junction visualized. acetowhite changes noted 4-7 oclock, punctations noted -none, mosaicism noted 6 oclock , and atypical vasculature noted -none. BIOPSY: Done at 3:00, 6:00, 9:00, and 12:00 ECC: done HEMOSTASIS: Obtained with silver nitrate no lesions noted upper vagina Procedure Summary: Patient tolerated procedure well and colposcopy was adequate. ASSESSMENT: HPV effect PLAN: Specimens labeled and sent to Pathology. Will notify patient of results in 1-2 weeks. Post-procedure instructions reviewed and written material given to the patient. Consider laser or hyst if needs treated, cervix very flush Maryjane Huntley MD [place], [place] 07/22/2024 2:09 PM Signed YOUR RECOVERY It may take a few [...] changes after the procedure, you can help (more content not included)... Normal [facility] DBT Breast - bilateral diagn ostic for implanton 07-22-2024 IMPRESSION: Stable complicated cyst in the right breast is probably benign. Mammographic and sonographic follow-up in 6 months is recommended. BI-RADS Category 3: Probably Benign RISK: Based on the Tyrer-Cuzick (TC) risk assessment model, this patient has a 7.7% lifetime risk of developing breast cancer, meaning they are at average risk for developing breast cancer. However, this is only an estimate based on available history provided on the patient's questionnaire. We encourage all patients to talk with their providers about these results, further recommendations for managing breast health, and appropriate supplemental screening options if the patient has dense breast tissue. Whole breast ultrasound is a supplemental breast cancer screening test to be used in addition to screening mammography and does not replace annual screening mammography. Interpreting Radiologist: Hernan Dawson M.D. Electronically signed on: 07/22/2024 Production Support Specialist: CHRISTY Transcribe Date/Time: Jul 22 2024 2:11P Dictated by: HERNAN DAWSON MD This examination was interpreted and the report reviewed and electronically signed by: HERNAN DAWSON MD on Jul 22 2024 2:57PM [facility] DIVISION OF RADIOLOGY * * *Final Report* * * DATE OF EXAM: Jul 22 2024 2:28PM [facility] 0627 - LEE DIAG W ARIEL RODRIGUEZ / PROCEDURE REASON: Abnormal mammogram * * * * Physician Interpretation * * * * RESULT: [facility] [address] [place] [address] HISTORY: Patient is 64 years old and is seen for diagnostic evaluation of short term follow-up from a previous mammogram in the right breast. The patient has no personal history of cancer. COMPARISON STUDIES: The present examination has been compared to prior imaging studies dated 12/11/2022 (mammogram), 02/07/2023 (mammogram) and 02/07/2023 (ultrasound). MAMMOGRAM TECHNIQUE: The study was acquired using full field digital technology and interpreted from soft copy. Digital Breast Tomosynthesis (DBT) images were obtained and used to assist in the interpretation of this examination. Computer-aided detection was utilized by the radiologist in the interpretation of this examination. MAMMOGRAM FINDINGS: There are scattered areas of fibroglandular density. There are bilateral saline implants. There is an isodense focal asymmetry measuring 1 centimeter with macrolobulated margins in the right breast at 12 o'clock. No suspicious masses, calcifications or other abnormalities are seen in the left breast. ULTRASOUND TECHNIQUE: Directed ultrasound of the right breast using hand-held ultrasound technique was performed. Hernandez scale images of the real-time examination were reviewed. ULTRASOUND FINDINGS: Ultrasound demonstrates a stable oval complicated cyst measuring 1.1 cm in the right breast at 12 o'clock. a complicated cyst. DIVISION OF RADIOLOGY Provider, [facility] - 07/22/2024 * * *Final Report* * * DATE OF EXAM: Jul 22 2024 2:28PM [facility] 0627 - LEE DIAG W ARIEL RODRIGUEZ / PROCEDURE REASON: Abnormal mammogram * * * * Physician Interpretation * * * * RESULT: [facility] [address] [place] [address] HISTORY: Patient is 64 years old and is seen for diagnostic evaluation of short term follow-up from a previous mammogram in the right breast. The patient has no personal history of cancer. COMPARISON STUDIES: The present examination has been compared to prior imaging studies dated 12/11/2022 (mammogram), 02/07/2023 (mammogram) and 02/07/2023 (ultrasound). MAMMOGRAM TECHNIQUE: The study was acquired using full field digital technology and interpreted from soft copy. Digital Breast Tomosynthesis (DBT) images were obtained and used to assist in the interpretation of this examination. Computer-aided detection was utilized by the radiologist in the interpretation of this examination. MAMMOGRAM FINDINGS: There are scattered areas of fibroglandular density. There are bilateral saline implants. There is an isodense focal asymmetry measuring 1 centimeter with macrolobulated margins in the right breast at 12 o'clock. No suspicious masses, calcifications or other abnormalities are seen in the left breast. ULTRASOUND TECHNIQUE: Directed ultrasound of the right breast using hand-held ultrasound technique was performed. Hernandez scale images of the real-time examination were reviewed. ULTRASOUND FINDINGS: Ultrasound demonstrates a stable oval complicated cyst measuring 1.1 cm in the right breast at 12 o'clock. a complicated cyst. IMPRESSION IMPRESSION: Stable complicated cyst in the right breast is probably benign. Mammographic and sonographic follow-up in 6 months is recommended. BI-RADS Category 3: Probably Benign RISK: Based on the Tyrer-Cuzick (TC) risk assessment model, this patient has a 7.7% lifetime risk of developing breast cancer, meaning they are at average risk for developing breast cancer. However, this is only an estimate based on available history provided on the patient's questionnaire. We encourage all patients to talk with their providers about these results, further recommendations for managing breast health, and appropriate supplemental screening options if the patient has dense breast tissue. Whole breast ultrasound is a supplemental breast cancer screening test to be used in addition to screening mammography and does not replace annual screening mammography. Interpreting Radiologist: Hernan Dawson M.D. Electronically signed on: 07/22/2024 Production Support Specialist: CHRISTY Transcribe Date/Time: Jul 22 2024 2:11P Dictated by: HERNAN DAWSON MD This examination was interpreted and the report reviewed and electronically signed by: HERNAN DAWSON MD on Jul 22 2024 2:57PM EST [facility] LEE Soto 2023 LEE RODRIGUEZ * * *Final Report* * * DATE OF EXAM: Jul 22 2024 2:28PM [facility] 0627 - LEE RODRIGUEZ / PROCEDURE REASON: Abnormal mammogram * * * * Physician Interpretation * * * * RESULT: [place] [address] [place] [id number] HISTORY: Patient is 64 years old and is seen for diagnostic evaluation of short term follow-up from a previous mammogram in the right breast. The patient has no personal history of cancer. COMPARISON STUDIES: The present examination has been compared to prior imaging studies dated 12/11/2022 (mammogram), 02/07/2023 (mammogram) and 02/07/2023 (ultrasound). MAMMOGRAM TECHNIQUE: The study was acquired using full field digital technology and interpreted from soft copy. Digital Breast Tomosynthesis (DBT) images were obtained and used to assist in the interpretation of this examination. Computer-aided detection was utilized by the radiologist in the interpretation of this examination. MAMMOGRAM FINDINGS: There are scattered areas of fibroglandular density. There are bilateral saline implants. There is an isodense focal asymmetry measuring 1 centimeter with macrolobulated margins in the right breast at 12 o'clock. No suspicious masses, calcifications or other abnormalities are seen in the left breast. ULTRASOUND TECHNIQUE: Directed ultrasound of the right breast using hand-held ultrasound technique was performed. Hernandez scale images of the real-time examination were reviewed. ULTRASOUND FINDINGS: Ultrasound demonstrates a stable oval complicated cyst measuring 1.1 cm in the right breast at 12 o'clock. a complicated cyst. IMPRESSION: Stable complicated cyst in the right breast is probably benign. Mammographic and sonographic follow-up in 6 months is recommended. BI-RADS Category 3: Probably Benign RISK: Based on the Tyrer-Cuzick (TC) risk assessment model, this patient has a 7.7% lifetime risk of developing breast cancer, meaning they are at average risk for developing breast cancer. However, this is only an estimate based on available history provided on the patient's questionnaire. We encourage all patients to talk with their providers about these results, further recommendations for managing breast health, and appropriate supplemental screening options if the patient has dense breast tissue. Whole breast ultrasound is a supplemental breast cancer screening test to be used in addition to screening mammography and does not replace annual screening mammography. Interpreting Radiologist: Hernan Dawson M.D. Electronically signed on: 07/22/2024 Production Support Specialist: CHRISTY Transcribe Date/Time: Jul 22 2024 2:11P Dictated by: HERNAN DAWSON MD This examination was interpreted and the report reviewed and electronically signed by: HERNAN DAWSON MD on Jul 22 2024 2:57PM EST [id number] Normal [facility] US BREAST LTD RTon 07-22 [facility] US BREAST LTD RT * * *Final Report* * * DATE OF EXAM: Jul 22 2024 2:49PM [facility] 0594 - [facility] US BREAST LTD RT / PROCEDURE REASON: Abnormal mammogram * * * * Physician Interpretation * * * * [place] [address] HISTORY: Patient is 64 years old and is seen for diagnostic evaluation of short term follow-up from a previous mammogram in the right breast. The patient has no personal history of cancer. COMPARISON STUDIES: The present examination has been compared to prior imaging studies dated 12/11/2022 (mammogram), 02/07/2023 (mammogram) and 02/07/2023 (ultrasound). MAMMOGRAM TECHNIQUE: The study was acquired using full field digital technology and interpreted from soft copy. Digital Breast Tomosynthesis (DBT) images were obtained and used to assist in the interpretation of this examination. Computer-aided detection was utilized by the radiologist in the interpretation of this examination. MAMMOGRAM FINDINGS: There are scattered areas of fibroglandular density. There are bilateral saline implants. There is an isodense focal asymmetry measuring 1 centimeter with macrolobulated margins in the right breast at 12 o'clock. No suspicious masses, calcifications or other abnormalities are seen in the left breast. ULTRASOUND TECHNIQUE: Directed ultrasound of the right breast using hand-held ultrasound technique was performed. Hernandez scale images of the real-time examination were reviewed. ULTRASOUND FINDINGS: Ultrasound demonstrates a stable oval complicated cyst measuring 1.1 cm in the right breast at 12 o'clock. a complicated cyst. IMPRESSION: Stable complicated cyst in the right breast is probably benign. Mammographic and sonographic follow-up in 6 months is recommended. BI-RADS Category 3: Probably Benign RISK: Based on the Tyrer-Cuzick (TC) risk assessment model, this patient has a 7.7% lifetime risk of developing breast cancer, meaning they are at average risk for developing breast cancer. However, this is only an estimate based on available history provided on the patient's questionnaire. We encourage all patients to talk with their providers about these results, further recommendations for managing breast health, and appropriate supplemental screening options if the patient has dense breast tissue. Whole breast ultrasound is a supplemental breast cancer screening test to be used in addition to screening mammography and does not replace annual screening mammography. Interpreting Radiologist: Hernan Dawson M.D. Electronically signed on: 07/22/2024 Production Support Specialist: CHRISTY Transcribe Date/Time: Jul 22 2024 2:38P Dictated by : HERNAN DAWSON MD This examination was interpreted and the report reviewed and electronically signed by: HERNAN DAWSON MD on Jul 22 2024 2:57PM EST [id number] Normal [facility] No Panel InformationOrdered By: [facility] Provider on 07-22-2024 [facility] No Panel Informationon 07-22 Radiology Study observation (narrative) [facility] SURGICAL PATHOLOGYon 024 CASE REPORT Normal [facility] Comment on above: Order Comment: Speci men Type: FLUID SPECIMEN Ordering Facility: [facility] Address: [address] [place] [address] Result Comment: Surg [facility] Pathology Report Case: [id number] Authorizing Provider: Maryjane Huntley MD Collected: 07/22/2024 04:02 PM Ordering Location: OB/Gynecology Received: 07/22/2024 04:41 PM Pathologist: Derrick Foster MD, PhD Specimens: A) - Cervix, Biopsy, 3, 6, 9, 12 oclock B) - Endocervix, Curettings Performed By: #### L [id number], HPVHRT #### [facility] CLIA [id number] [address] [place] [address] [facility] CLINICAL HISTORY hpv pos Normal [facility] Comment on above: Order Comment: Speci men Type: FLUID SPECIMEN Ordering Facility: [facility] Address: [address] [place] [address] Performed By: #### L [id number], HPVHRT #### [facility] CLIA [id number] [address] [place] [address] OF S[place]AR[place]AN DIAGNOSIS COMMENT Normal [facility] Comment on above: Order Comment: Speci men Type: FLUID SPECIMEN Ordering Facility: [facility] Address: [address] [place] [address] Result Comment: Immu nostaining and deeper sections performed on A1 shows negative p16 staining pattern, supporting the morphological interpretation. Laboratory Developed Test (LDT) Disclaimer: Performance characteristics of immunohistochemical, immunofluorescent and chromogenic in-situ hybridization tests have been determined by the performing laboratory within [facility] Medicine Department ([facility], [facility], [facility], [facility], [facility], [facility], or [facility] [place]) in a manner consistent with CLIA requirements. One or more of these tests have not been cleared or approved by the FDA. [facility] is regulated under CLIA as qualified to perform high-complexity testing. These tests are used for clinical purposes. They should not be regarded as investigational or for research. Positive and negative controls stain appropriately. Performed By: #### L [id number], HPVHRT #### [facility] CLIA [id number] [address] [place] [address] FINAL DIAGNOSIS Normal [facility] Comment on above: Order Comment: Speci men Type: FLUID SPECIMEN Ordering Facility: [facility] Address: [address] [place] [address] Result Comment: A. C ervix, multiple biopsies: - Focal low-grade squamous intraepithelial lesion (RONALD-1). B. Endocervix, curettings: - Mucus and a minute strip of superficial benign squamous epithelium. - The specimen is inadequate for evaluation of cervical disease. Performed By: #### L [id number], HPVHRT #### [facility] CLIA [id number] [address] [place] [address] [place] FINAL PERFORMING LAB Normal [facility] Comment on above: Order Comment: Speci men Type: FLUID SPECIMEN Ordering Facility: [facility] Address: [address] [place] [address] Result Comment: Diag nostic interpretation performed at [facility], [address] [place] [address] CLIA# [id number] Customs Collector: Malvin Tristan M.D. Performed By: #### L [id number], HPVHRT #### [facility] CLIA [id number] [address] [place] [address] STATES OF [facility] GROSS DESCRIPTION Normal [facility] Comment on above: Order Comment: Speci men Type: FLUID SPECIMEN Ordering Facility: [facility] Address: [address] [place] [address] Result Comment: A. C ervix, Biopsy Received in formalin are multiple pieces of sheets and sheets-pink, soft tissue aggregating to 0.7 x 0.5 x 0.2 cm. Totally submitted in one cassette. B. Endocervix, Curettings Received in formalin are multiple sheets and sheets-white, soft feathery segments of tissue aggregating to 0.2 x 0.1 x 0.1 cm. Totally submitted in one cassette. Might not survive processing. JCDM July 22, 2024 9:18 PM Gross examination performed at [facility], [address] [place] [address] Performed By: #### L [id number], HPVHRT #### [facility] CLIA [id number] [address] [place] [address] [place] US Breast - right limitedon 07-22-2024 IMPRESSION: Stable complicated cyst in the right breast is probably benign. Mammographic and sonographic follow-up in 6 months is recommended. BI-RADS Category 3: Probably Benign RISK: Based on the Tyrer-Cuzick (TC) risk assessment model, this patient has a 7.7% lifetime risk of developing breast cancer, meaning they are at average risk for developing breast cancer. However, this is only an estimate based on available history provided on the patient's questionnaire. We encourage all patients to talk with their providers about these results, further recommendations for managing breast health, and appropriate supplemental screening options if the patient has dense breast tissue. Whole breast ultrasound is a supplemental breast cancer screening test to be used in addition to screening mammography and does not replace annual screening mammography. Interpreting Radiologist: Hernan Dawson M.D. Electronically signed on: 07/22/2024 Production Support Specialist: CHRISTY Transcrijason Date/Time: Jul 22 2024 2:38P Dictated by : HERNAN DAWSON MD This examination was interpreted and the report reviewed and electronically signed by: HERNAN DAWSON MD on Jul 22 2024 2:57PM [facility] DIVISION OF RADIOLOGY * * *Final Report* * * DATE OF EXAM: Jul 22 2024 2:49PM U 0594 - [facility] RT / PROCEDURE REASON: Abnormal mammogram * * * * Physician Interpretation * * * * [place] [address] HISTORY: Patient is 64 years old and is seen for diagnostic evaluation of short term follow-up from a previous mammogram in the right breast. The patient has no personal history of cancer. COMPARISON STUDIES: The present examination has been compared to prior imaging studies dated 12/11/2022 (mammogram), 02/07/2023 (mammogram) and 02/07/2023 (ultrasound). MAMMOGRAM TECHNIQUE: The study was acquired using full field digital technology and interpreted from soft copy. Digital Breast Tomosynthesis (DBT) images were obtained and used to assist in the interpretation of this examination. Computer-aided detection was utilized by the radiologist in the interpretation of this examination. MAMMOGRAM FINDINGS: There are scattered areas of fibroglandular density. There are bilateral saline implants. There is an isodense focal asymmetry measuring 1 centimeter with macrolobulated margins in the right breast at 12 o'clock. No suspicious masses, calcifications or other abnormalities are seen in the left breast. ULTRASOUND TECHNIQUE: Directed ultrasound of the right breast using hand-held ultrasound technique was performed. Hernandez scale images of the real-time examination were reviewed. ULTRASOUND FINDINGS: Ultrasound demonstrates a stable oval complicated cyst measuring 1.1 cm in the right breast at 12 o'clock. a complicated cyst. DIVISION OF RADIOLOGY Provider, Castro Castillorafal [facility] - 07/22/2024 * * *Final Report* * * DATE OF EXAM: Jul 22 2024 2:49PM [facility] 0594 - [facility] RT / PROCEDURE REASON: Abnormal mammogram * * * * Physician Interpretation * * * * [place] [address] HISTORY: Patient is 64 years old and is seen for diagnostic evaluation of short term follow-up from a previous mammogram in the right breast. The patient has no personal history of cancer. COMPARISON STUDIES: The present examination has been compared to prior imaging studies dated 12/11/2022 (mammogram), 02/07/2023 (mammogram) and 02/07/2023 (ultrasound). MAMMOGRAM TECHNIQUE: The study was acquired using full field digital technology and interpreted from soft copy. Digital Breast Tomosynthesis (DBT) images were obtained and used to assist in the interpretation of this examination. Computer-aided detection was utilized by the radiologist in the interpretation of this examination. MAMMOGRAM FINDINGS: There are scattered areas of fibroglandular density. There are bilateral saline implants. There is an isodense focal asymmetry measuring 1 centimeter with macrolobulated margins in the right breast at 12 o'clock. No suspicious masses, calcifications or other abnormalities are seen in the left breast. ULTRASOUND TECHNIQUE: Directed ultrasound of the right breast using hand-held ultrasound technique was performed. Hernandez scale images of the real-time examination were reviewed. ULTRASOUND FINDINGS: Ultrasound demonstrates a stable oval complicated cyst measuring 1.1 cm in the right breast at 12 o'clock. a complicated cyst. IMPRESSION IMPRESSION: Stable complicated cyst in the right breast is probably benign. Mammographic and sonographic follow-up in 6 months is recommended. BI-RADS Category 3: Probably Benign RISK: Based on the Tyrer-Cuzick (TC) risk assessment model, this patient has a 7.7% lifetime risk of developing breast cancer, meaning they are at average risk for developing breast cancer. However, this is only an estimate based on available history provided on the patient's questionnaire. We encourage all patients to talk with their providers about these results, further recommendations for managing breast health, and appropriate supplemental screening options if the patient has dense breast tissue. Whole breast ultrasound is a supplemental breast cancer screening test to be used in addition to screening mammography and does not replace annual screening mammography. Interpreting Radiologist: Hernan Dawson M.D. Electronically signed on: 07/22/2024 Production Support Specialist: CHRISTY Transcribe Date/Time: Jul 22 2024 2:38P Dictated by : HERNAN DAWSON MD This examination was interpreted and the report reviewed and electronically signed by: HERNAN DAWSON MD on Jul 22 2024 2:57PM [facility] 06-26-2024 CNPN Telephone (RDXWS) -------- PATTI REYES ([id number]) 1960 F Date Time Provider Department 06/26/24 LEISA LEGER RDXWS During your visit today, we recorded the following information about you: Ashia Boyer, RT(R) 06/26/2024 1:23 PM Signed Patient needs a diagnostic mammogram for her rt side follow from 02/07/23 and a right breast ultrasound. Please order a Bilateral diagnostic mammogram and rt breast ultrasound for pt. Thank you! Allergies As of Date: 06/26/2024 Noted Allergy Reaction CALADRYL (PRAMOXINE-CALAMINE) 08/10/2006 Date Reviewed: 06/18/2024 Reviewed by: Leisa Leger APRN.INSIDE POLISHER - Fully Assessed Reason for Visit: Primary Visit Diagnosis:Abnormal mammogram [R92.8] Order(s): BREAST LTD RIGHT [[id number]] Order #: [id number] FUTURE [facility] DIAGNOSTIC BILATERAL [[id number]] Order #: [id number] FUTURE Prescriptions as of 06/26/2024 - levothyroxine (SYNTHROID) 125 mcg tablet Take 1 tablet by mouth once daily. - lisinopril-hydrochloroth iazide (PRINZIDE,ZESTORETIC) 20-12.5 mg per tablet Take 1 tablet by mouth once daily. - PAROXETINE HCL (PAXIL ORAL) Take 25 mg by mouth. - hydrOXYchloroQUINE (PLAQUENIL) 200 mg tablet Take by mouth once daily. - atorvastatin (LIPITOR) 10 mg tablet Take 1 tablet by mouth once daily. - MULTIVITAMIN TAB Take one(1) tablet daily. Problem List As Of Date 06/26/2024 Noted Resolved CHR SEROUS OM SIMP/NOS [H65.20] DERMATITIS NOS [L25.9] PURE HYPERCHOLESTEROLEM [E78.00] IRON DEFIC ANEMIA NOS [D50.9] PANIC DISORDER WITHOUT AGORAPHOBIA [F41.0] Surveillance of Previously Prescribed Contracep* 05/03/2010 INT HEMORRHOID W/O COMPL [K64.8] UNSP ABNORMAL MAMMOGRAM [R92.8] 06/03/2007 Hypothyroid [E03.9] Anemia [D64.9] Rectal Bleeding [K62.5] IUD Surveillance [Z30.431] 05/03/2010 [facility] arthritis [M19.049] 12/06/2011 ASCUS with positive high risk HPV cervical [R87*08/13/2020 Encounter Status:Closed by [facility] ) -------- PATTI REYES ([id number]) 1960 F Date Time Provider Department 06/18/24 1:00 PM LEISA LEGER During your visit today, we recorded the following information about you: Blood pressure Weight Height 120/74 62.6 kg 1.626 m Leisa Leger APRN.CNP 06/18/2024 2:16 PM Signed Phthalic Acid Purifier offered: Patient declines. The sensitive examination was discussed with the Patient or Patient's Authorized Tar Roofer. As applicable, any other physician, advance practice provider, medical student, or other health professional student that will be observing or involved in the sensitive examination for educational or training purposes was discussed with the Patient or Authorized Tar Roofer. The Patient or Authorized Tar Roofer has agreed to proceed with the sensitive examination. (Sensitive examination includes inspection and/or palpation of the breasts, pelvis, prostate and anorectal regions) Carmen is a 64 year old who presents for an annual gynecologic exam without complaints. Postmenopausal: Yes since age 53 HRT use: No. HPV vaccine: completed Last Pap: 2021 ASCUS HPV: 2021 positive History of abnormal pap: Yes 2020 ASCUS, HPV +; conization 2017, Colposcopy 09/2020, 2020, 2021- benign Last mammogram: 2022 abnormal right breast cyst History of abnormal mammogram: Yes, calcifications left breast, neg biopsy Sexually active: Not for past 6 months Patient concerns for STD exposure: No. Pain with intercourse: No Postcoital bleeding: No Documentation from previous visit of 08/15/2022 was copied and pasted, documentation has been reviewed and edited as necessary for today's visit. 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: Sexual Activity: Not Currently; Male Contraception: PAST MEDICAL HISTORY 2021: Abnormal glandular Papanicolaou smear of cervix No date: Anemia No date: Contact dermatitis and other eczema, due to unspecified cause 12/12/2005: Diaphragmatic hernia without mention of obstruction or gangrene No date: Hypothyroid No date: Internal hemorrhoids without mention of complication No date: Iron deficiency anemia, unspecified No date: Osteoarthritis No date: Panic disorder without agoraphobia No date: Pure hypercholesterolemia No date: Rectal bleeding No date: Simple or unspecified chronic serous otitis mediaPAST SURGICAL HISTORY 12/01/2005: COLONOSCOPY FLX DX W/COLLJ SPEC WHEN PFRMD 04/12/2018: COLONOSCOPY FLX DX W/COLLJ SPEC WHEN PFRMD Comment: adenomatous polyp, repeat in 5 years 06/20/2018: CONIZATION OF CERVIX; COLD KNIFE/LASER Comment: @ [facility]-Dr. Ramirez 12/12/2005: EGD TRANSORAL BIOPSY SINGLE/MULTIPLE No date: PAST SURGICAL HISTORY OF Comment: breast bx for calicafication X 2 10/2006: PAST SURGICAL HISTORY OF Comment: breast implants 2007: PAST SURGICAL HISTORY OF Comment: breast bx, benign 2021: VAGINOSCOPY 09/2014: WRIST SURGERY HX Comment: left wrist 06/2018: WRIST SURGERY HX Comment: right wrist - arthritic joint mormon FAMILY HISTORY Problem Relation Age of Onset Breast Cancer Mother other (Hypercholesterolemia) Mother breast cancer Hypertension Father hypercholesterolemia Cancer Father bladder other (Heart, pacemaker) Father Hypertension Brother Hypertension Brother Hypertension Brother Ulcerative Colitis Daughter 32 colecotmy Cancer Paternal Aunt bladder, heart-- SOCIAL HISTORY Social History Tobacco Use Smoking status: Never Smokeless tobacco: Never Vaping Use Vaping status: Never Used Substance Use Topics Alcohol use: Not Currently Comment: Occasionally Drug use: No REVIEW OF SYSTEMS Abdomen: No abdominal pain, nausea, vomiting, diarrhea, or constipation. No bloating, early satiety, indigestion, or increased flatulence. Bladder: No dysuria, gross hematuria, urinary frequency, urinary urgency, or incontinence Breast: No breast lumps, nipple d/c, overlying skin changes, redness or skin retraction Allergies and current medication updated:Yes EXAM: BP 120/74 Ht 5' 4 (1.63m) Wt 138 lb (62.6kg) LMP 2010 BMI 23.68 kg/(m2). GENERAL: pleasant, female in no apparent distress HEENT: Normocephalic, atraumatic, mucus membranes moist, and no lesions NECK: Supple, full range of motion, no adenopathy, and thyroid normal DERMATOLOGY: Normal, without lesions, non-icteric, and non-hirsute BREAST: soft, non-tender, symmetric, no dominant mass, normal nipple-areolar complex, no lymphadenopathy, no nipple discharge, and bilateral implants CHEST: Normal inspiratory effort ABDOMEN: soft, non-tender, and no masses PELVIC: external genitalia normal, normal Bartholin's glands, urethra, Ske (more content not included)... Normal [facility] HIGH RISK HUMAN PAPILLOMA BALTAZAR (HPV), PCR FOR DETECTION AND GENOTYPINGon 06-18-2024 HPV 16 Ag Ql (Unsp spec) Not detected Normal Not detected [facility] Comment on above: Order Comment: Speci men Type: FLUID SPECIMEN Ordering Facility: [facility] Address: [address] [place] [address] Performed By: #### L [id number], HPVHRT #### [facility] CLIA [id number] [address] [place] [address] [place] HPV 18 Ag Ql (Unsp spec) Not detected Normal Not detected [facility] Comment on above: Order Comment: Speci men Type: FLUID SPECIMEN Ordering Facility: [facility] Address: [address] [place] [address] Performed By: #### L [id number], HPVHRT #### [facility] CLIA [id number] [address] [place] [address] [place] HPV 31+33+35+39+45+51+52+5 6+58+59+66+68 DNA RANJIT+probe Ql (Cvx) Detected Abnormal Not detected [facility] Comment on above: Order Comment: Speci men Type: FLUID SPECIMEN Ordering Facility: [facility] Address: [address] [place] [address] Result Comment: High Risk HPV Other Type includes HPV types 31, 33, 35, 39, 45, 51, 52, 56, 58, 59, 66 and 68. Performed By: #### L [id number], HPVHRT #### [facility] CLIA [id number] [address] [place] [address] [place] PAP TESTon 06-18-2024 ADEQUACY Satisfactory for interpretation. Normal [facility] Comment on above: Order Comment: Speci men Type: FLUID SPECIMEN Ordering Facility: [facility] Address: [address] [place] [address] Performed By: #### L [id number], HPVHRT #### [facility] CLIA [id number] [address] [place] [address] [place] CASE REPORT Normal [facility] Comment on above: Order Comment: Speci men Type: FLUID SPECIMEN Ordering Facility: [facility] Address: [address] [place] [address] Result Comment: Gyne cologic Cytology Report Case: [id number] Authorizing Provider: Leisa Leger APRN.INSIDE POLISHER Collected: 06/18/2024 01:49 PM Ordering Location: OB/Gynecology Received: 06/18/2024 04:57 PM First Screen: Milli Schafer, CT, ASCP Pathologist: Rajani Isaac MD Specimen: Pap Test, ThinPrep, Cervix Performed By: #### L [id number], HPVHRT #### [facility] CLIA [id number] [address] [place] [address] [place] CLINICAL HISTORY, CYTOLOGY, DIGITAL PRODUCTION MANAGER Post Menopausal Normal [facility] Comment on above: Order Comment: Speci men Type: FLUID SPECIMEN Ordering Facility: [facility] Address: [address] [place] [address] Performed By: #### L [id number], HPVHRT #### [facility] CLIA [id number] [address] [place] [address] [place] CYTOLOGY PAP OTHER INT Changes consisten t with follicular cervicitis Normal [facility] Comment on above: Order Comment: Speci men Type: FLUID SPECIMEN Ordering Facility: [facility] Address: [address] [place] [address] Performed By: #### L [id number], HPVHRT #### [facility] CLIA [id number] [address] [place] [address] [place] FINAL PERFORMING LAB Normal [facility] Comment on above: Order Comment: Speci men Type: FLUID SPECIMEN Ordering Facility: [facility] Address: [address] [place] [address] Result Comment: Tech nical component, professional volleyball player screening performed at [facility], [address] [place], [place] [id number] CLIA# [id number] Diagnostic interpretation performed at [facility], [facility] [place] [id number] CLIA# [id number] Customs Collector: Malvin Tristan M.D. Performed By: #### L [id number], HPVHRT #### [facility] CLIA [id number] [address] [place] [address] [place] HPV REFLEX Yes HPV Normal [facility] Comment on above: Order Comment: Speci men Type: FLUID SPECIMEN Ordering Facility: [facility] Address: [address] [place] [address] Performed By: #### L [id number], HPVHRT #### [facility] CLIA [id number] [address] [place] [address] [place] INTERPRETATION, CYTOLOGY, DIGITAL PRODUCTION MANAGER Normal [facility] Comment on above: Order Comment: Speci men Type: FLUID SPECIMEN Ordering Facility: [facility] Address: [address] [place] [address] Result Comment: Nega tive for intraepithelial lesion or malignancy. Performed By: #### L [id number], HPVHRT #### [facility] CLIA [id number] [address] [place] [address] [place] PAP DISCLAIMER COMMENT The Pap Smear is a screening test for cervical cancer. False negative results occur with all screening tests, emphasizing the need for rescreening at recommended intervals, and clinical correlation. Normal [facility] Comment on above: Order Comment: Speci men Type: FLUID SPECIMEN Ordering Facility: [facility] Address: [address] [place] [address] Performed By: #### L [id number], HPVHRT #### [facility] CLIA [id number] [address] [place] [address] [place] PAP AMUSEMENT OR RECREATION CARD CHECKER COMMENT This specimen has be en analyzed by the ThinPrep Imaging System, an automated imaging and review system, which assists the laboratory in evaluating cells on ThinPrep Pap tests. Following automated imaging, selected velarde from every slide are reviewed by a professional volleyball player. Normal [facility] Comment on above: Order Comment: Speci men Type: FLUID SPECIMEN Ordering Facility: [facility] Address: [address] [place], [place] [address] Performed By: #### L [id number], HPVHRT #### [facility] CLIA [id number] [address] [place] [address] [id number] [place] [address] [place] CBC W/Diff, Automatedon 08-0 Absolute Lymph 2.24 X10 3/uL Normal 0.83-4.51 [facility] Comment on above: Performed By: #### L 500.2500, L501.9520, L500.4100 #### [facility] [address] [place], [address] Absolute Neut 4.7 X10 3/uL Normal 2.0-7.7 [facility] Comment on above: Performed By: #### L 500.2500, L501.9520, L500.4100 #### [facility] [address] [place], [address] Basophils/100 WBC (Bld) 1.0 % Normal 0-1 [facility] Comment on above: Performed By: #### L 500.2500, L501.9520, L500.4100 #### [facility] [address] [place], [address] Eosinophils/100 WBC (Bld) 2.3 % Normal 0-5 [facility] Comment on above: Performed By: #### L 500.2500, L501.9520, L500.4100 #### [facility] [address] [place], [address] Erythrocyte distribution width (RBC) [Ratio] 12.6 % Normal 11.6-14.6 [facility] Comment on above: Performed By: #### L 500.2500, L501.9520, L500.4100 #### [facility] [address] [place], [address] Hematocrit (Bld) [Volume fraction] 39.6 % Normal 37-47 [facility] Comment on above: Performed By: #### L 500.2500, L501.9520, L500.4100 #### [facility] [address] [place], [address] Hemoglobin (Bld) [Mass/Vol] 13.5 g/dL Normal 12.0-15.0 [facility] Comment on above: Performed By: #### L 500.2500, L501.9520, L500.4100 #### [facility] [address] [place], [address] IG% 0.200 Normal 0.0-0.9 [facility] Comment on above: Result Comment: IG% - Immature Granulocytes (promyelocytes, myelocytes and metamyelocytes) > 1% indicates that a LEFT SHIFT is Present. Performed By: #### L 500.2500, L501.9520, L500.4100 #### [facility] [address] [place], [address] Lymphocytes/100 WBC (Bld) 27.6 % Normal 19-41 [facility] [facility] Comment on above: Performed By: #### L 500.2500, L501.9520, L500.4100 #### [facility] [address] [place], [address] MCH (RBC) [Entitic mass] 31.3 pg Normal 27.0-32.0 [facility] Comment on above: Performed By: #### L 500.2500, L501.9520, L500.4100 #### [facility] [address] [place], [address] MCHC (RBC) [Mass/Vol] 34.1 g/dL Normal 32-36 [facility] Comment on above: Performed By: #### L 500.2500, L501.9520, L500.4100 #### [facility] [address] [place], [address] MCV (RBC) [Entitic vol] 91.7 fL Normal 81-99 [facility] Comment on above: Performed By: #### L 500.2500, L501.9520, L500.4100 #### [facility] [address] [place], [address] Monocytes/100 WBC (Bld) 11.1 % High 0-10 [facility] Comment on above: Performed By: #### L 500.2500, L501.9520, L500.4100 #### [facility] [address] [place], [address] Neutrophils/100 WBC (Bld) 57.8 % Normal 47-70 [facility] Comment on above: Performed By: #### L 500.2500, L501.9520, L500.4100 #### [facility] [address] [place], [address] Nucleated RBC (Bld) [#/Vol] 0 10*3/uL Normal 0-5 [facility] Comment on above: Performed By: #### L 500.2500, L501.9520, L500.4100 #### [facility] [address] [place], [address] Platelet mean volume (Bld) [Entitic vol] 11.6 fL Normal 6.2-12.0 [facility] Comment on above: Performed By: #### L 500.2500, L501.9520, L500.4100 #### [facility] [address] [place], [address] Platelets (Bld) [#/Vol] 321 10*3/uL Normal 150-450 [facility] Comment on above: Performed By: #### L 500.2500, L501.9520, L500.4100 #### [facility] [address] [place], [address] RBC (Bld) [#/Vol] 4.32 10*6/uL Normal 4.2-5.4 [facility] Comment on above: Performed By: #### L 500.2500, L501.9520, L500.4100 #### [facility] [address] [place], [address] RDW SD 42.5 fl Normal 35.1-43.9 [facility] Comment on above: Performed By: #### L 500.2500, L501.9520, L500.4100 #### [facility] [address] [place], [address] WBC (Bld) [#/Vol] 8.1 10*3/uL Normal 4.4-11.0 [facility] Comment on above: Performed By: #### L 500.2500, L501.9520, L500.4100 #### [facility] [address] [place], [address] Comprehensive Metabolic [facility] 05-15-2024 Albumin [Mass/Vol] 3.7 g/dL Normal 3.2-5.0 [facility] Comment on above: Performed By: #### L 500.2500, L501.9520, L500.4100 #### [facility] [address] [place], [address] Albumin/Globulin [Mass ratio] 1.0 {ratio} Normal 0.9-2.4 [facility] Comment on above: Performed By: #### L 500.2500, L501.9520, L500.4100 #### [facility] [address] [place], [address] ALK P 91 U/L Normal 45-117 [facility] Comment on above: Performed By: #### L 500.2500, L501.9520, L500.4100 #### [facility] [address] [place], [address] ALT [Catalytic activity/Vol] 16 U/L Normal 13-56 [facility] Comment on above: Performed By: #### L 500.2500, L501.9520, L500.4100 #### [facility] [address] [place], [address] AST [Catalytic activity/Vol] 20 U/L Normal 15-37 [facility] Comment on above: Performed By: #### L 500.2500, L501.9520, L500.4100 #### [facility] [address] [place], [address] Bilirubin [Mass/Vol] 0.60 mg/dL Normal 0.20-1.00 [facility] Comment on above: Result Comment: For patients on eltrombopag therapy, use of Dimension [place] TBIL is not recommended. Performed By: #### L 500.2500, L501.9520, L500.4100 #### [facility] [address] [place], [address] BUN/CRE 19.6 RATIO Normal 10-20 [facility] Comment on above: Performed By: #### L 500.2500, L501.9520, L500.4100 #### [facility] [address] [place], [address] CA,Total 9.9 mg/dL Normal 8.5-10.1 [facility] Comment on above: Performed By: #### L 500.2500, L501.9520, L500.4100 #### [facility] [address] [place], [address] Chloride [Moles/Vol] 106 mmol/L Normal 98-107 [facility] Comment on above: Performed By: #### L 500.2500, L501.9520, L500.4100 #### [facility] [address] [place], [address] CO2 [Moles/Vol] 31.0 mmol/L Normal 21.0-32.0 [facility] Comment on above: Performed By: #### L 500.2500, L501.9520, L500.4100 #### [facility] [address] [place], [address] Creatinine [Mass/Vol] 0.76 mg/dL Normal 0.55-1.02 [facility] Comment on above: Result Comment: The validity of the calculated GFR GFRAA in patients over 70 years has not been determined. Clinical correlation is essential. Performed By: #### L 500.2500, L501.9520, L500.4100 #### [facility] [address] [place], [address] EST GFR - AA 97 mL/min Normal >60 [facility] Comment on above: Result Comment: Afri can [place] GFR Calc Performed By: #### L 500.2500, L501.9520, L500.4100 #### [facility] [address] [place], [address] GAP 3 Low 5-15 [facility] Comment on above: Performed By: #### L 500.2500, L501.9520, L500.4100 #### [facility] [address] [place], [address] GFR/1.73 sq M.predicted among non-blacks MDRD (S/P/Bld) [Vol rate/Area] 80 mL/min/{1.73_m2} Normal >60 [facility] Comment on above: Result Comment: Non- GFR Calc Performed By: #### L 500.2500, L501.9520, L500.4100 #### [facility] [address] [place], [address] Globulin (S) [Mass/Vol] 3.7 g/dL Normal 2.2-4.2 [facility] Comment on above: Performed By: #### L 500.2500, L501.9520, L500.4100 #### [facility] [address] [place], [address] Glucose [Mass/Vol] 94 mg/dL Normal 74-106 [facility] Comment on above: Performed By: #### L 500.2500, L501.9520, L500.4100 #### [facility] [address] [place], [address] Potassium [Moles/Vol] 3.2 mmol/L Low 3.5-5.1 [facility] Comment on above: Performed By: #### L 500.2500, L501.9520, L500.4100 #### [facility] [address] [place], [address] Sodium [Moles/Vol] 140 mmol/L Normal 136-145 [facility] Comment on above: Performed By: #### L 500.2500, L501.9520, L500.4100 #### [facility] [address] [place], [address] T PROT 7.4 g/dL Normal 6.4-8.2 [facility] Comment on above: Performed By: #### L 500.2500, L501.9520, L500.4100 #### [facility] [address] [place], [address] Urea nitrogen [Mass/Vol] 15 mg/dL Normal 7-18 [facility] Comment on above: Performed By: #### L 500.2500, L501.9520, L500.4100 #### [facility] [address] [place], [address] AST(SGOT)on 01-23-2024 AST [Catalytic activity/Vol] 25 U/L Normal 15-37 [facility] Comment on above: Order Comment: Order Date: 01/21/24 Order Info: 666-10 - BMP Order Info: - LIPID Order Info: 1920-05 - AST Order Info: 1742-03 - ALT Order Info: 3026-2 - T4 Order Info: 3016-3 - TSH Performed By: #### L 500.4100, L501.9520, L501.4100, L501.9310, L500.2500 #### [facility] [address] [place], [address] Alanine Aminotransferas (SGP T)on 01-23-2024 ALT [Catalytic activity/Vol] 31 U/L Normal 13-56 [facility] Comment on above: Order Comment: Order Date: 01/21/24 Order Info: 666-10 - BMP Order Info: - LIPID Order Info: 1920-05 - AST Order Info: 1742-03 - ALT Order Info: 302-2 - T4 Order Info: 6-3 - TSH Performed By: #### L 501.9985, L501.4405 #### [facility] [address] [place], [address] Basic Metabolic Profile (BMP )on 01-23-2024 BUN/CRE 30.5 RATIO High 10-20 [facility] Comment on above: Order Comment: Order Date: 01/21/24 Order Info: 666-10 - BMP Order Info: - LIPID Order Info: 1920-05 - AST Order Info: 1742-03 - ALT Order Info: 3026-2 - T4 Order Info: 3016-3 - TSH Performed By: #### L 500.4100, L501.9520, L501.4100, L501.9310, L500.2500 #### [facility] [address] [place], [address] CA,Total 10.1 mg/dL Normal 8.5-10.1 [facility] Comment on above: Order Comment: Order Date: 01/21/24 Order Info: 666-10 - BMP Order Info: - LIPID Order Info: 1920-05 AST Order Info: 1742-03 Order Info: 3025-2 - T4 Order Info: 3015-3 - TSH Performed By: #### L 500.4100, L501.9520, L501.4100, L501.9310, L500.2500 #### [facility] [address] [place], [address] Chloride [Moles/Vol] 108 mmol/L High 98-107 [facility] Comment on above: Order Comment: Order Date: 01/21/24 Order Info: 666-10 - BMP Order Info: - LIPID Order Info: 1920-05 AST Order Info: 1742-03 ALT Order Info: 3025-2 - T4 Order Info: 3015-3 - TSH Performed By: #### L 500.4100, L501.9520, L501.4100, L501.9310, L500.2500 #### [facility] [address] [place], [address] CO2 [Moles/Vol] 28.0 mmol/L Normal 21.0-32.0 [facility] Comment on above: Order Comment: Order Date: 01/21/24 Order Info: 666-10 - BMP Order Info: - LIPID Order Info: 1920-05 AST Order Info: 1742-03 Order Info: 3025-2 - T4 Order Info: 3015-3 - TSH Performed By: #### L 500.4100, L501.9520, L501.4100, L501.9310, L500.2500 #### [facility] [address] [place], [address] Creatinine [Mass/Vol] 0.69 mg/dL Normal 0.55-1.02 [facility] Comment on above: Order Comment: Order Date: 01/21/24 Order Info: 666-10 - BMP Order Info: - LIPID Order Info: 1920-8 - AST Order Info: 1742-03 ALT Order Info: 2 - T4 Order Info: 3 - TSH Result Comment: The validity of the calculated GFR GFRAA in patients over 70 years has not been determined. Clinical correlation is essential. Performed By: #### L 500.4100, L501.9520, L501.4100, L501.9310, L500.2500 #### [facility] [address] [place], [address] EST GFR - AA 110 mL/min Normal >60 [facility] Comment on above: Order Comment: Order Date: 01/21/24 Order Info: 666-10 - BMP Order Info: - LIPID Order Info: 1920-05 AST Order Info: 1742-03 ALT Order Info: 2 - T4 Order Info: 3 - TSH Result Comment: Afri can [place] GFR Calc Performed By: #### L 500.4100, L501.9520, L501.4100, L501.9310, L500.2500 #### [facility] [address] [place], [address] GAP 5 Normal 5-15 [facility] Comment on above: Order Comment: Order Date: 01/21/24 Order Info: 0667 - BMP Order Info: - LIPID Order Info: 1920-05 AST Order Info: 1742-03 ALT Order Info: 2 - T4 Order Info: 3 - TSH Performed By: #### L 500.4100, L501.9520, L501.4100, L501.9310, L500.2500 #### [facility] [address] [place], [address] GFR/1.73 sq M.predicted among non-blacks MDRD (S/P/Bld) [Vol rate/Area] 91 mL/min/{1.73_m2} Normal >60 [facility] Comment on above: Order Comment: Order Date: 01/21/24 Order Info: 666-10 - BMP Order Info: - LIPID Order Info: 1920-05 - AST Order Info: 1742-03 Order Info: 2 - T4 Order Info: 3 - TSH Result Comment: Non- GFR Calc Performed By: #### L 500.4100, L501.9520, L501.4100, L501.9310, L500.2500 #### [facility] [address] [place], [address] Glucose [Mass/Vol] 104 mg/dL Normal 74-106 [facility] Comment on above: Order Comment: Order Date: 01/21/24 Order Info: 666-10 - BMP Order Info: - LIPID Order Info: 1920-05 AST Order Info: 1742-03 Order Info: 2 - T4 Order Info: 3015-12 - TSH Result Comment: Fast ing Glucose result from 100 to 125 mg/dL suggests IMPAIRED HOMEOSTASIS per A.D.A. criteria. Performed By: #### L 500.4100, L501.9520, L501.4100, L501.9310, L500.2500 #### [facility] [address] [place], [address] Potassium [Moles/Vol] 3.3 mmol/L Low 3.5-5.1 [facility] Comment on above: Order Comment: Order Date: 01/21/24 Order Info: 666-10 - BMP Order Info: - LIPID Order Info: 1920-05 - AST Order Info: 1742-03 Order Info: 2 - T4 Order Info: 3015-12 - TSH Performed By: #### L 500.4100, L501.9520, L501.4100, L501.9310, L500.2500 #### [facility] [address] [place], [address] Sodium [Moles/Vol] 141 mmol/L Normal 136-145 [facility] Comment on above: Order Comment: Order Date: 01/21/24 Order Info: 666-10 - BMP Order Info: - LIPID Order Info: 1920-05 AST Order Info: 1742-03 ALT Order Info: 2 - T4 Order Info: 3 - TSH Performed By: #### L 500.4100, L501.9520, L501.4100, L501.9310, L500.2500 #### [facility] [address] [place], [address] Urea nitrogen [Mass/Vol] 21 mg/dL High 7-18 [facility] Comment on above: Order Comment: Order Date: 01/21/24 Order Info: 666-10 - BMP Order Info: - LIPID Order Info: 1920-05 - AST Order Info: 1742-03 ALT Order Info: 2 - T4 Order Info: 3015-12 - TSH Performed By: #### L 500.4100, L501.9520, L501.4100, L501.9310, L500.2500 #### [facility] [address] [place], [address] Basophil percentageOrdered B y: Leisa Blount on 01-23-2024 Chloride [Moles/Vol] 108 mmol/L 98-107 [facility] Cholesterol [Mass/Vol] 204 mg/dL <200 [facility] Comment on above: <200 mg/dL Desirable 200-240 mg/dL Borderline >240 mg/dL High Risk Glucose [Mass/Vol] 104 mg/dL 74-106 [facility] Comment on above: Fasting Glucose resu lt from 100 to 125 mg/dL suggests IMPAIRED HOMEOSTASIS per A.D.A. criteria. Potassium [Moles/Vol] 3.3 mmol/L 3.5-5.1 [facility] Sodium [Moles/Vol] 141 mmol/L 136-145 [facility] Triglyceride [Mass/Vol] 117 mg/dL <199 [facility] Comment on above: The drugs N-Acetylcy steine and Metamizole may falsely depress this assay.Serum Triglycerides Reference Interval Normal <150 mg/dL Borderline high 150 - 199 mg/dL High 200 - 499 mg/dL Very High > or = 500 mg/dL Laboratory - Chemistry and C hemistry - challengeOrdered By: Leisa Blount on 01-23-2024 ALT [Catalytic activity/Vol] 31 U/L 13-56 [facility] Cholesterol in HDL [Mass/Vol] 73 mg/dL >40 [facility] Comment on above: The drugs N-Acetylcy steine and Metamizole may falsely depress this assay. Reference Range HDL <40 mg/dL Low HDL Cholesterol HDL >or= 60 mg/dL High HDL Cholesterol Cholesterol in LDL [Mass/Vol] 108 mg/dL 0-130 [facility] CO2 [Moles/Vol] 28.0 mmol/L 21.0-32.0 [facility] Urea nitrogen/Creatinine [Mass ratio] 30.5 mg/mg 10-20 [facility] Lipid Profileon 01-23-2024 Cholesterol [Mass/Vol] 204 mg/dL High 200 [facility] Comment on above: Order Comment: Order Date: 01/21/24 Order Info: 06 - BMP Order Info: 78286-2 - LIPID Order Info: 1920-05 - AST Order Info: 1742-03 - ALT Order Info: 3025-11 - T4 Order Info: 3 - TSH Result Comment: <200 mg/dL Desirable 200-240 mg/dL Borderline >240 mg/dL High Risk Performed By: #### L 500.4100, L501.9520, L501.4100, L501.9310, L500.2500 #### [facility] [address] [place], [place], [address] Cholesterol in HDL [Mass/Vol] 73 mg/dL Normal [facility] Comment on above: Order Comment: Order Date: 01/21/24 Order Info: 0667 - BMP Order Info: 88451-0 - LIPID Order Info: 1920-05 - AST Order Info: 1742-03 - ALT Order Info: 3026-2 - T4 Order Info: 3016-3 - TSH Result Comment: The drugs N-Acetylcysteine and Metamizole may falsely depress this assay. Reference Range HDL <40 mg/dL Low HDL Cholesterol HDL >or= 60 mg/dL High HDL Cholesterol Performed By: #### L 500.4100, L501.9520, L501.4100, L501.9310, L500.2500 #### [facility] [address] [place], [address] Cholesterol in LDL [Mass/Vol] 108 mg/dL Normal 0-130 [facility] Comment on above: Order Comment: Order Date: 01/21/24 Order Info: 666-10 - BMP Order Info: - LIPID Order Info: 1920-05 - AST Order Info: 1742-03 ALT Order Info: 2 - T4 Order Info: 3 - TSH Performed By: #### L 500.4100, L501.9520, L501.4100, L501.9310, L500.2500 #### [facility] [address] [place], [address] Cholesterol in VLDL [Mass/Vol] 23 mg/dL Normal 5-40 [facility] Comment on above: Order Comment: Order Date: 01/21/24 Order Info: 666-10 - BMP Order Info: - LIPID Order Info: 1920-05 AST Order Info: 1742-03 ALT Order Info: 2 - T4 Order Info: 3 - TSH Performed By: #### L 500.4100, L501.9520, L501.4100, L501.9310, L500.2500 #### [facility] [address] [place], [address] Triglyceride [Mass/Vol] 117 mg/dL Normal [facility] Comment on above: Order Comment: Order Date: 01/21/24 Order Info: 666-10 - BMP Order Info: - LIPID Order Info: 1920-05 - AST Order Info: 1742-03 - ALT Order Info: 2 - T4 Order Info: 3015-3 - TSH Result Comment: The drugs N-Acetylcysteine and Metamizole may falsely depress this assay. Serum Triglycerides Reference Interval Normal <150 mg/dL Borderline high 150 - 199 mg/dL High 200 - 499 mg/dL Very High > or = 500 mg/dL Performed By: #### L 500.4100, L501.9520, L501.4100, L501.9310, L500.2500 #### [facility] [address] [place], [address] No Panel InformationOrdered By: Leisa Blount on 01-23-2024 Estimated GFR (MDRD) Amer 110 mL/min >60 [facility] Comment on above: GFR Calc Estimated GFR (MDRD) Non-Af Amer 91 mL/min >60 [facility] Comment on above: Non- GFR Calc VLDL Cholesterol 23 mg/dL 5-40 [facility] Protein+Creatinine Ratio,Uri neon 01-23-2024 PROT:CRE RATIO 42 mg/g CRE Normal 0-200 [facility] Comment on above: Performed By: #### L 501.0900 #### [facility] [address] [place], [address] Protein (U) [Mass/Vol] 8.1 mg/dL Normal <11.9 [facility] Comment on above: Performed By: #### L 501.0900 #### [facility] [address] [place], [address] UR CREAT 191.00 mg/dL Normal NO RANGE EST. [facility] Comment on above: Performed By: #### L 501.0900 #### [facility] [address] [place], [address] Serum or plasma calcium toya urement (mass/volume)Ordered By: Leisa Blount on 01-23-2024 Calcium [Mass/Vol] 10.1 mg/dL 8.5-10.1 [facility] Serum or plasma creatinine m easurement (mass/volume)Ordered By: Leisa Blount on 01-23-2024 Creatinine [Mass/Vol] 0.69 mg/dL 0.55-1.02 [facility] Comment on above: The validity of the calculated GFR & GFRAA in patients over 70 years has not been determined. Clinical correlation is essential. Serum or plasma thyroid stim ulating hormone (TSH) measurement (units/volume)Ordered By: Leisa Blount on 01-23-2024 TSH Qn 0.29 uIU/mL 0.358-3.74 [facility] Serum or plasma thyroxine (T 4) measurement (mass/volume)Ordered By: Leisa Blount on 01-23-2024 T4 [Mass/Vol] 11.3 ug/dL 4.8-13.9 [facility] Serum or plasma urea nitroge n measurement (mass/volume)Ordered By: Leisa Blount on 01-23-2024 Urea nitrogen [Mass/Vol] 21 mg/dL 7-18 [facility] T4 Total, Thyroxinon 024 T4 [Mass/Vol] 11.3 ug/dL Normal 4.8-13.9 [facility] Comment on above: Order Comment: Order Date: 07/08/24 Order Info: 0667-1 - BMP Order Info: 91486-7 - LIPID Order Info: 3016-3 - TSH Performed By: #### L 500.2500, L501.9520, L500.4100 #### [facility] [address] [facility] [place], [place], [id number] Thin prep Papanicolaou smear with manual screeningOrdered By: Leisa Blount on 01-23-2024 Protein (U) [Mass/Vol] 8.1 mg/dL 0.0-11.8 [facility] Thin prep Papanicolaou smear with manual screening 25 U/L 15-37 [facility] Thin prep Papanicolaou smear with manual screening 5 5-15 [facility] Thyroid Stim Hormone (TSH)on 01-23-2024 TSH 0.29 uIU/mL Low 0.358-3.74 [facility] Comment on above: Order Comment: Order Date: 07/08/24 Order Info: 0667-1 - BMP Order Info: 46058-5 - LIPID Order Info: 3016-3 - TSH Performed By: #### L 500.2500, L501.9520, L500.4100 #### [facility] [address] [place], [place], [id number] Urine creatinine measurement (mass/volume)Ordered By: Leisa Blount on 01-23-2024 Creatinine (U) [Mass/Vol] 191.00 mg/dL NO RANGE EST. [facility] Urine protein/creatinine mas s ratioOrdered By: Leisa Blount on 01-23-2024 Protein/Creatinine (U) [Mass ratio] 42 mg/g CRE 0-200 [facility] Whole blood hemoglobin A1c/t otal hemoglobin ratio (mass fraction)Ordered By: Leisa Blount on 01-23-2024 HbA1c (Bld) [Mass fraction] 5.3 % Normal 3.8-5.6 [facility] Comment on above: Normal < 5.7 % Predi abetic 5.7 - 6.4 % Diabetic >or= 6.5 % Please note range changes. Order Comment: Order Date: 01/21/24 Order Info: [id number] - A1C Result Comment: Norm al < 5.7 % Prediabetic 5.7 - 6.4 % Diabetic >or= 6.5 % Please note range changes. Performed By: #### L 501.9985, [id number] #### [facility] [address] [place], [place], [id number] Absolute lymphocyte countOrd ered By: Fran Peña on 11-19-2023 Lymphocytes Auto (Unsp spec) [#/Vol] 2.76 10*3/uL 0.83-4.51 [facility] Automated lymphocyte count a s percentage of total leukocytesOrdered By: Fran Peña on 11-19-2023 Lymphocytes/100 WBC Auto (Unsp spec) 32.8 % 19-41 [facility] Basophil percentageOrdered B y: Fran Peña on 11-19-2023 Basophils/100 WBC (Bld) 1.1 % 0-1 [facility] Eosinophils/100 WBC (Bld) 1.8 % 0-5 [facility] Hemoglobin (Bld) [Mass/Vol] 13.8 g/dL 12.0-15.0 [facility] Monocytes/100 WBC (Bld) 9.5 % 0-10 [facility] Neutrophils (Bld) [#/Vol] 4.6 10*3/uL 2.0-7.7 [facility] Neutrophils/100 WBC (Bld) 54.7 % 47-70 [facility] WBC (Bld) [#/Vol] 8.4 10*3/uL 4.4-11.0 [facility] Determination of erythrocyte mean corpuscular volume (MCV)Ordered By: Fran Peña on 11-19-2023 MCV (RBC) [Entitic vol] 95.5 fL 81-99 [facility] Erythrocyte distribution wid th ratioOrdered By: Fran Peña on 11-19-2023 Erythrocyte distribution width (RBC) [Ratio] 12.3 % 11.6-14.6 [facility] Erythrocyte distribution wid th standard deviationOrdered By: Fran Peña on 11-19-2023 Erythrocyte distribution width (RBC) [Entitic vol] 43.1 fL 35.1-43.9 [facility] Erythrocyte sedimentation ra teOrdered By: Fran Peña on 11-19-2023 ESR (Bld) [Velocity] 1 mm/h 0-30 [facility] Hematocrit Auto (Bld) [Volum e fraction]Ordered By: Fran Peña on 11-19-2023 Hematocrit (Bld) [Volume fraction] 40.2 % 37-47 [facility] Immature granulocytes/100 WB C Auto (Bld)Ordered By: Fran Peña on 11-19-2023 Immature granulocytes/100 WBC (Bld) 0.100 % 0.0-0.9 [facility] Comment on above: IG% - Immature Granu locytes (promyelocytes, myelocytes and metamyelocytes) > 1% indicates that a LEFT SHIFT is Present. Laboratory - Hematology and Cell countsOrdered By: Fran Peña on 11-19-2023 MCH (RBC) [Entitic mass] 32.8 pg 27.0-32.0 [facility] MCHC (RBC) [Mass/Vol] 34.3 g/dL 32-36 [facility] Nucleated RBC/100 WBC (Bld) [Ratio] 0 % 0-5 [facility] Platelet mean volume (Bld) [Entitic vol] 11.1 fL 6.2-12.0 [facility] Platelets (Bld) [#/Vol] 282 10*3/uL 150-450 [facility] No Panel InformationOrdered By: Fran Peña on 11-19-2023 C-Reactive Protein Extended Range < 2.90 mg/L 0.0-3.0 [facility] Comment on above: C-Reactive Protein ( CRP) provides useful information for thediagnosis, therapy and monitoring of inflammatory processesand associated diseases. For the evaluation of Relative Riskfor Cardiovascular Disease, a High Sensitivity CRP (HSCRP)should be ordered. RBC Auto (Bld) [#/Vol]Ordere d By: Fran Peña on 11-19-2023 RBC (Bld) [#/Vol] 4.21 10*6/uL 4.2-5.4 [facility] Absolute lymphocyte countOrd ered By: Shakira Santa on 10-24-2023 Lymphocytes Auto (Unsp spec) [#/Vol] 2.81 10*3/uL 0.83-4.51 [facility] Automated lymphocyte count a s percentage of total leukocytesOrdered By: Shakira Santa on 10-24-2023 Lymphocytes/100 WBC Auto (Unsp spec) 37.2 % 19-41 [facility] Basophil percentageOrdered B y: Shakira Santa on 10-24-2023 Basophils/100 WBC (Bld) 1.2 % 0-1 [facility] Bilirubin [Mass/Vol] 0.40 mg/dL 0.20-1.00 [facility] Comment on above: For patients on eltr ombopag therapy, use of Dimension [place] TBIL is not recommended. Chloride [Moles/Vol] 108 mmol/L 98-107 [facility] Eosinophils/100 WBC (Bld) 4.0 % 0-5 [facility] Glucose [Mass/Vol] 101 mg/dL 74-106 [facility] Comment on above: Fasting Glucose resu lt from 100 to 125 mg/dL suggests IMPAIRED HOMEOSTASIS per A.D.A. criteria. Hemoglobin (Bld) [Mass/Vol] 13.6 g/dL 12.0-15.0 [facility] Monocytes/100 WBC (Bld) 11.0 % 0-10 [facility] Neutrophils (Bld) [#/Vol] 3.5 10*3/uL 2.0-7.7 [facility] Neutrophils/100 WBC (Bld) 46.3 % 47-70 [facility] Potassium [Moles/Vol] 3.5 mmol/L 3.5-5.1 [facility] Protein [Mass/Vol] 7.2 g/dL 6.4-8.2 [facility] Sodium [Moles/Vol] 142 mmol/L 136-145 [facility] WBC (Bld) [#/Vol] 7.6 10*3/uL 4.4-11.0 [facility] Determination of erythrocyte mean corpuscular volume (MCV)Ordered By: Shakira Santa on 10-24-2023 MCV (RBC) [Entitic vol] 96.9 fL 81-99 [facility] Erythrocyte distribution wid th ratioOrdered By: [facility] on 10-24-[facility]23 Erythrocyte distribution width (RBC) [Ratio] 12.2 % 11.6-14.6 [facility] Erythrocyte distribution wid th standard deviationOrdered By: [facility] on 10-24-2023 Erythrocyte distribution width (RBC) [Entitic vol] 43.1 fL 35.1-43.9 [facility] Hematocrit Auto (Bld) [Volum e fraction]Ordered By: [facility] on 10-24-2023 Hematocrit (Bld) [Volume fraction] 40.8 % 37-47 [facility] Immature granulocytes/100 WB C Auto (Bld)Ordered By: [facility] on 10-24-2023 Immature granulocytes/100 WBC (Bld) 0.300 % 0.0-0.9 [facility] Comment on above: IG% - Immature Granu locytes (promyelocytes, myelocytes and metamyelocytes) > 1% indicates that a LEFT SHIFT is Present. Laboratory - Chemistry and C hemistry - challengeOrdered By: Shakira Santa on 10-24-2023 Albumin/Globulin [Mass ratio] 1.1 {ratio} 0.9-2.4 [facility] ALP [Catalytic activity/Vol] 96 U/L 45-117 [facility] ALT [Catalytic activity/Vol] 28 U/L 13-56 [facility] CO2 [Moles/Vol] 28.0 mmol/L 21.0-32.0 [facility] Globulin (S) [Mass/Vol] 3.5 g/dL 2.2-4.2 [facility] Urea nitrogen/Creatinine [Mass ratio] 34.2 mg/mg 10-20 [facility] Laboratory - Hematology and Cell countsOrdered By: Shakira Santa on 10-24-2023 MCH (RBC) [Entitic mass] 32.3 pg 27.0-32.0 [facility] MCHC (RBC) [Mass/Vol] 33.3 g/dL 32-36 [facility] Nucleated RBC/100 WBC (Bld) [Ratio] 0 % 0-5 [facility] Platelets (Bld) [#/Vol] 303 10*3/uL 150-450 [facility] No Panel InformationOrdered By: Shakira Santa on 10-24-2023 Estimated GFR (MDRD) Amer 119 mL/min >60 [facility] Comment on above: GFR Calc Estimated GFR (MDRD) Non-Af Amer 98 mL/min >60 [facility] Comment on above: Non- GFR Calc Platelet mean volume Mp-Ec ker (Bld) [Entitic vol]Ordered By: Shakira Santa on 10-24-2023 Platelet mean volume (Bld) [Entitic vol] 11.1 fL 6.2-12.0 [facility] RBC Auto (Bld) [#/Vol]Ordere d By: Shakira Santa on 10-24-2023 RBC (Bld) [#/Vol] 4.21 10*6/uL 4.2-5.4 [facility] Serum or plasma calcium toya urement (mass/volume)Ordered By: Shakira Santa on 10-24-2023 Calcium [Mass/Vol] 9.6 mg/dL 8.5-10.1 [facility] Serum or plasma creatinine m easurement (mass/volume)Ordered By: Shakira Santa on 10-24-2023 Creatinine [Mass/Vol] 0.64 mg/dL 0.55-1.02 [facility] Comment on above: The validity of the calculated GFR & GFRAA in patients over 70 years has not been determined. Clinical correlation is essential. Serum or plasma urea nitroge n measurement (mass/volume)Ordered By: Shakira Santa on 10-24-2023 Urea nitrogen [Mass/Vol] 22 mg/dL 7-18 [facility] Thin prep Papanicolaou smear with manual screeningOrdered By: Shakira Santa on 10-24-2023 Thin prep Papanicolaou smear with manual screening 3.7 g/dL 3.2-5.0 [facility] Thin prep Papanicolaou smear with manual screening 24 U/L 15-37 [facility] Thin prep Papanicolaou smear with manual screening 6 5-15 [facility] Absolute lymphocyte countOrd ered By: Dr. Santa on 03-16-2023 Lymphocytes Auto (Unsp spec) [#/Vol] 2.11 10*3/uL 0.83-4.51 [facility] Basophil percentageOrdered B y: Dr. Santa on 03-16-2023 Basophils/100 WBC (Bld) 1.0 % 0-1 [facility] Bilirubin [Mass/Vol] 0.60 mg/dL 0.20-1.00 [facility] Comment on above: For patients on eltr ombopag therapy, use of Dimension [place] TBIL is not recommended. Chloride [Moles/Vol] 106 mmol/L 98-107 [facility] Eosinophils/100 WBC (Bld) 3.1 % 0-5 [facility] Glucose [Mass/Vol] 101 mg/dL 74-106 [facility] Comment on above: Fasting Glucose resu lt from 100 to 125 mg/dL suggests IMPAIRED HOMEOSTASIS per A.D.A. criteria. Neutrophils (Bld) [#/Vol] 3.0 10*3/uL 2.0-7.7 [facility] Neutrophils/100 WBC (Bld) 48.3 % 47-70 [facility] Potassium [Moles/Vol] 4.1 mmol/L 3.5-5.1 [facility] Protein [Mass/Vol] 7.6 g/dL 6.4-8.2 [facility] Sodium [Moles/Vol] 139 mmol/L 136-145 [facility] WBC (Bld) [#/Vol] 6.1 10*3/uL 4.4-11.0 [facility] Blood erythrocytes count (nu mber/volume)Ordered By: Dr. Santa on 03-16-2023 RBC (Bld) [#/Vol] 3.87 10*6/uL 4.2-5.4 [facility] Blood hemoglobin measurement (mass/volume)Ordered By: Dr. Santa on 03-16-2023 Hemoglobin (Bld) [Mass/Vol] 13.6 g/dL 12.0-15.0 [facility] Blood lymphocytes/100 leukoc ytesOrdered By: Dr. Santa on 03-16-2023 Lymphocytes/100 WBC (Bld) 34.5 % 19-41 [facility] Blood monocytes/100 leukocyt esOrdered By: Dr. Santa on 03-16-2023 Monocytes/100 WBC (Bld) 13.1 % 0-10 [facility] Blood platelet mean volumeOr dered By: Dr. Santa on 03-16-2023 Platelet mean volume (Bld) [Entitic vol] 10.8 fL 6.2-12.0 [facility] Determination of erythrocyte mean corpuscular volume (MCV)Ordered By: Dr. Santa on 03-16-2023 MCV (RBC) [Entitic vol] 103.9 fL 81-99 [facility] Hematocrit Auto (Bld) [Volum e fraction]Ordered By: Dr. Santa on 03-16-2023 Hematocrit (Bld) [Volume fraction] 40.2 % 37-47 [facility] Laboratory - Chemistry and C hemistry - challengeOrdered By: Dr. Santa on 03-16-2023 ALP [Catalytic activity/Vol] 91 U/L 45-117 [facility] ALT [Catalytic activity/Vol] 36 U/L 13-56 [facility] CO2 [Moles/Vol] 29.0 mmol/L 21.0-32.0 [facility] Globulin (S) [Mass/Vol] 3.7 g/dL 2.2-4.2 [facility] Urea nitrogen/Creatinine [Mass ratio] 22.0 mg/mg 10-20 [facility] - Hematology and Cell countsOrdered By: Dr. Santa on 03-16-2023 Erythrocyte distribution width (RBC) [Entitic vol] 56.9 fL 35.1-43.9 [facility] Erythrocyte distribution width (RBC) [Ratio] 14.7 % 11.6-14.6 [facility] Immature granulocytes/100 WBC (Bld) 0.000 % 0.0-0.9 [facility] Comment on above: IG% - Immature Granu locytes (promyelocytes, myelocytes and metamyelocytes) > 1% indicates that a LEFT SHIFT is Present. MCH (RBC) [Entitic mass] 35.1 pg 27.0-32.0 [facility] Nucleated RBC/100 WBC (Bld) [Ratio] 0 % 0-5 [facility] MCHC Auto (RBC) [Mass/Vol]Or dered By: Dr. Santa on 03-16-2023 MCHC (RBC) [Mass/Vol] 33.8 g/dL 32-36 [facility] No Panel InformationOrdered By: Dr. Santa on 03-16-2023 Estimated GFR (MDRD) Amer 104 mL/min >60 [facility] Comment on above: GFR Calc Estimated GFR (MDRD) Non-Af Amer 86 mL/min >60 [facility] Comment on above: Non- GFR Calc Platelets bldOrdered By: Dr. Santa on 03-16-2023 Platelets (Bld) [#/Vol] 300 10*3/uL 150-450 [facility] Serum or plasma albumin toya urement (mass/volume)Ordered By: Dr. Santa on 03-16-2023 Albumin [Mass/Vol] 3.9 g/dL 3.2-5.0 [facility] Serum or plasma albumin/glob ulin mass ratioOrdered By: Dr. Santa on 03-16-2023 Albumin/Globulin [Mass ratio] 1.1 {ratio} 0.9-2.4 [facility] Serum or plasma calcium toya urement (mass/volume)Ordered By: Dr. Santa on 03-16-2023 Calcium [Mass/Vol] 10.1 mg/dL 8.5-10.1 [facility] Serum or plasma creatinine m easurement (mass/volume)Ordered By: Dr. Santa on 03-16-2023 Creatinine [Mass/Vol] 0.73 mg/dL 0.55-1.02 [facility] Comment on above: The validity of the calculated GFR & GFRAA in patients over 70 years has not been determined. Clinical correlation is essential. Serum or plasma urea nitroge n measurement (mass/volume)Ordered By: Dr. Santa on 03-16-2023 Urea nitrogen [Mass/Vol] 16 mg/dL 7-18 [facility] Thin prep Papanicolaou smear with manual screeningOrdered By: Dr. Santa on 03-16-2023 Thin prep Papanicolaou smear with manual screening 25 U/L 15-37 [facility] Thin prep Papanicolaou smear with manual screening 4 5-15 [facility] LEE DIAG W ARIEL RIGHTon 05-0 [facility] US BREAST LTD RTon [facility] LEE SCREENINGon 12-11-2022 [facility] Absolute lymphocyte counton 08-02-2022 Lymphocytes Auto (Unsp spec) [#/Vol] 2.71 10*3/uL 0.83-4.51 [facility] Work Phone: Basophil percentageon 2021 Basophils/100 WBC (Bld) 0.8 % 0-1 [facility] Work Phone: Bilirubin [Mass/Vol] 0.60 mg/dL 0.20-1.00 [facility] Work Phone: Comment on above: For patients on eltr ombopag therapy, use of Dimension [place] TBIL is not recommended. Chloride [Moles/Vol] 104 mmol/L 98-107 [facility] Work Phone: Eosinophils/100 WBC (Bld) 2.8 % 0-5 [facility] Work Phone: Glucose [Mass/Vol] 102 mg/dL 74-106 [facility] Work Phone: Comment on above: Fasting Glucose resu lt from 100 to 125 mg/dL suggests IMPAIRED HOMEOSTASIS per A.D.A. criteria. Neutrophils (Bld) [#/Vol] 3.5 10*3/uL 2.0-7.7 [facility] Work Phone: Neutrophils/100 WBC (Bld) 47.4 % 47-70 [facility] Work Phone: Potassium [Moles/Vol] 3.3 mmol/L 3.5-5.1 [facility] Work Phone: Protein [Mass/Vol] 7.4 g/dL 6.4-8.2 [facility] Work Phone: Sodium [Moles/Vol] 138 mmol/L 136-145 [facility] Work Phone: [phone] WBC (Bld) [#/Vol] 7.4 10*3/uL 4.4-11.0 [facility] Work Phone: [phone] Blood erythrocytes count (nu mber/volume)on 08-02-2022 RBC (Bld) [#/Vol] 3.88 10*6/uL 4.2-5.4 [facility] Work Phone: [phone] Blood hemoglobin measurement (mass/volume)on 08-02-2022 Hemoglobin (Bld) [Mass/Vol] 13.9 g/dL 12.0-15.0 [facility] Work Phone: [phone] Blood lymphocytes/100 leukoc yteson 08-02-2022 Lymphocytes/100 WBC (Bld) 36.4 % 19-41 [facility] Work Phone: [phone] Blood monocytes/100 leukocyt eson 08-02-2022 Monocytes/100 WBC (Bld) 12.5 % 0-10 [facility] Work Phone: [phone] Blood platelet mean volumeon 08-02-2022 Platelet mean volume (Bld) [Entitic vol] 10.9 fL 6.2-12.0 [facility] Work Phone: Determination of erythrocyte mean corpuscular volume (MCV)on 08-02-2022 MCV (RBC) [Entitic vol] 102.8 fL 81-99 [facility] Work Phone: Hematocrit Auto (Bld) [Volum e fraction]on 08-02-2022 Hematocrit (Bld) [Volume fraction] 39.9 % 37-47 [facility] Work Phone: Laboratory - Chemistry and C hemistry - challengeon 08-02-2022 ALP [Catalytic activity/Vol] 92 U/L 45-117 [facility] Work Phone: [phone] ALT [Catalytic activity/Vol] 31 U/L 13-56 [facility] Work Phone: [phone] CO2 [Moles/Vol] 28.0 mmol/L 21.0-32.0 [facility] Work Phone: [phone] Globulin (S) [Mass/Vol] 3.5 g/dL 2.2-4.2 [facility] Work Phone: [phone] Urea nitrogen/Creatinine [Mass ratio] 30.5 mg/mg 10-20 [facility] Work Phone: [phone] Laboratory - Hematology and Cell countson 08-02-2022 Erythrocyte distribution width (RBC) [Entitic vol] 47.2 fL 35.1-43.9 [facility] Work Phone: [phone] Erythrocyte distribution width (RBC) [Ratio] 12.6 % 11.6-14.6 [facility] Work Phone: [phone] Immature granulocytes/100 WBC (Bld) 0.100 % 0.0-0.9 [facility] Work Phone: [phone] Comment on above: IG% - Immature Granu locytes (promyelocytes, myelocytes and metamyelocytes) > 1% indicates that a LEFT SHIFT is Present. MCH (RBC) [Entitic mass] 35.8 pg 27.0-32.0 [facility] Work Phone: [phone] Nucleated RBC/100 WBC (Bld) [Ratio] 0 % 0-5 [facility] Work Phone: [phone] MCHC Auto (RBC) [Mass/Vol]on 08-02-2022 MCHC (RBC) [Mass/Vol] 34.8 g/dL 32-36 [facility] Work Phone: [phone] No Panel Informationon 08-02 Estimated GFR (MDRD) Amer 110 mL/min >60 [facility] Work Phone: [phone] Comment on above: GFR Calc Estimated GFR (MDRD) Non-Af Amer 91 mL/min >60 [facility] Work Phone: Comment on above: Non- GFR Calc Platelets bldon 08-02-2022 Platelets (Bld) [#/Vol] 328 10*3/uL 150-450 [facility] Work Phone: Serum or plasma albumin toya urement (mass/volume)on 08-02-2022 Albumin [Mass/Vol] 3.9 g/dL 3.2-5.0 [facility] Work Phone: [phone] Serum or plasma albumin/glob ulin mass ratioon 08-02-2022 Albumin/Globulin [Mass ratio] 1.1 {ratio} 0.9-2.4 [facility] Work Phone: [phone] Serum or plasma calcium toya urement (mass/volume)on 08-02-2022 Calcium [Mass/Vol] 10.1 mg/dL 8.5-10.1 [facility] Work Phone: [phone] Serum or plasma creatinine m easurement (mass/volume)on 08-02-2022 Creatinine [Mass/Vol] 0.69 mg/dL 0.55-1.02 [facility] Work Phone: Comment on above: The validity of the calculated GFR & GFRAA in patients over 70 years has not been determined. Clinical correlation is essential. Serum or plasma urea nitroge n measurement (mass/volume)on 08-02-2022 Urea nitrogen [Mass/Vol] 21 mg/dL 7-18 [facility] Work Phone: [phone] Thin prep Papanicolaou smear with manual screeningon 08-02-2022 Thin prep Papanicolaou smear with manual screening 25 U/L 15-37 [facility] Work Phone: [phone] Thin prep Papanicolaou smear with manual screening 6 5-15 [facility] Work Phone: Basophil percentageon 2021 Chloride [Moles/Vol] 104 mmol/L 98-107 [facility] Work Phone: [phone] Cholesterol [Mass/Vol] 246 mg/dL <200 [facility] Work Phone: [phone] Comment on above: <200 mg/dL Desirable 200-240 mg/dL Borderline >240 mg/dL High Risk Glucose [Mass/Vol] 119 mg/dL 74-106 [facility] Work Phone: Comment on above: Fasting Glucose resu lt from 100 to 125 mg/dL suggests IMPAIRED HOMEOSTASIS per A.D.A. criteria. Potassium [Moles/Vol] 3.8 mmol/L 3.5-5.1 [facility] Work Phone: [phone] Sodium [Moles/Vol] 141 mmol/L 136-145 [facility] Work Phone: [phone] Triglyceride [Mass/Vol] 139 mg/dL <199 [facility] Work Phone: [phone] Comment on above: The drugs N-Acetylcy steine and Metamizole may falsely depress this assay.Serum Triglycerides Reference Interval Normal <150 mg/dL Borderline high 150 - 199 mg/dL High 200 - 499 mg/dL Very High > or = 500 mg/dL Laboratory - Chemistry and C hemistry - challengeon 06-21-2022 ALT [Catalytic activity/Vol] 31 U/L 13-56 [facility] Work Phone: CO2 [Moles/Vol] 30.0 mmol/L 21.0-32.0 [facility] Work Phone: [phone] T4 [Mass/Vol] 10.5 ug/dL 4.8-13.9 [facility] Work Phone: [phone] Urea nitrogen/Creatinine [Mass ratio] 24.4 mg/mg 10-20 [facility] Work Phone: No Panel Informationon 06-21 Estimated GFR (MDRD) Amer 96 mL/min >60 [facility] Work Phone: Comment on above: GFR Calc Estimated GFR (MDRD) Non-Af Amer 79 mL/min >60 [facility] Work Phone: [phone] Comment on above: Non- GFR Calc Thyroid Stimulating Hormone (TSH) 1.74 uIU/mL 0.358-3.74 [facility] Work Phone: Urine Microalbumin/Creatinin e Ratio 8.2 mg/g CRE <30 [facility] Work Phone: [phone] Serum or plasma calcium toya urement (mass/volume)on 06-21-2022 Calcium [Mass/Vol] 10.1 mg/dL 8.5-10.1 [facility] Work Phone: Serum or plasma cholesterol in HDL measurement (mass/volume)on 06-21-2022 Cholesterol in HDL [Mass/Vol] 78 mg/dL >40 [facility] Work Phone: Comment on above: The drugs N-Acetylcy steine and Metamizole may falsely depress this assay. Reference Range HDL <40 mg/dL Low HDL Cholesterol HDL >or= 60 mg/dL High HDL Cholesterol Serum or plasma cholesterol in VLDL measurement (mass/volume)on 06-21-2022 Cholesterol in VLDL [Mass/Vol] 28 mg/dL 5-40 [facility] Work Phone: [phone] Serum or plasma creatinine m easurement (mass/volume)on 06-21-2022 Creatinine [Mass/Vol] 0.78 mg/dL 0.55-1.02 [facility] Work Phone: Comment on above: The validity of the calculated GFR & GFRAA in patients over 70 years has not been determined. Clinical correlation is essential. Serum or plasma low density lipoprotein (LDL) cholesterol measurement (mass/volume)on 06-21-2022 Cholesterol in LDL [Mass/Vol] 140 mg/dL 0-130 [facility] Work Phone: [phone] Serum or plasma urea nitroge n measurement (mass/volume)on 06-21-2022 Urea nitrogen [Mass/Vol] 19 mg/dL 7-18 [facility] Work Phone: [phone] Thin prep Papanicolaou smear with manual screeningon 06-21-2022 Thin prep Papanicolaou smear with manual screening 25 U/L 15-37 [facility] Work Phone: [phone] Thin prep Papanicolaou smear with manual screening 7 5-15 [facility] Work Phone: Thin prep Papanicolaou smear with manual screening 19.8 mg/L NO RANGE EST. [facility] Work Phone: Urine creatinine measurement (mass/volume)on 06-21-2022 Creatinine (U) [Mass/Vol] 240.00 mg/dL NO RANGE EST. [facility] Work Phone: Vital Signs Date Time Vital Sign Value Performing Clinician Faci lity 07-22-2024 15:21-0400 Body mass index (BMI) [Ratio] 23.17 kg/m2 Maryjane Huntley MD Work Phone: [facility] 07-22-2024 15:21-0400 Body weight 61.24 kg Maryjane Huntley MD Work Phone: [facility] 07-22-2024 15:21-0400 Diastolic blood pressure 64 mm[Hg] Maryjane Huntley MD Work Phone: [facility] 07-22-2024 15:21-0400 Systolic blood pressure 102 mm[Hg] Maryjane Huntley MD Work Phone: [facility] 06-18-2024 13:09-0400 Body height 162.6 cm Leisa Leger APRN.INSIDE POLISHER Work Phone: [facility] 06-18-2024 13:09-0400 Body mass index (BMI) [Ratio] 23.69 kg/m2 Leisa Leger APRN.INSIDE POLISHER Work Phone: [facility] 06-18-2024 13:09-0400 Body weight 62.6 kg Leisa Leger APRN.INSIDE POLISHER Work Phone: [facility] 06-18-2024 13:09-0400 Diastolic blood pressure 74 mm[Hg] Leisa Leger APRN.INSIDE POLISHER Work Phone: [facility] 06-18-2024 13:09-0400 Systolic blood pressure 120 mm[Hg] Leisa Leger APRN.INSIDE POLISHER Work Phone: [facility] 09-05-2022 09:21-0500 Body weight 73.48 kg Maryjane Huntley MD Work Phone: [facility] 09-05-2022 09:21-0500 Diastolic blood pressure 82 mm[Hg] Maryjane Huntley MD Work Phone: [facility] 09-05-2022 09:21-0500 Systolic blood pressure 120 mm[Hg] Maryjane Huntley MD Work Phone: [facility] 08-15-2022 08:02-0500 Body height 163.8 cm Leisa Leger APRN.INSIDE POLISHER Work Phone: [facility] 08-15-2022 08:02-0500 Body weight 73.03 kg Leisa Leger APRN.INSIDE POLISHER Work Phone: [facility] 08-15-2022 08:02-0500 Diastolic blood pressure 84 mm[Hg] Leisa Leger APRN.INSIDE POLISHER Work Phone: [facility] 08-15-2022 08:02-0500 Systolic blood pressure 122 mm[Hg] Leisa Leger APRN.INSIDE POLISHER Work Phone: [facility] Encounters Encounter Date Encounter Type Care Provider Facility Start: 03-17-2025 ambulatory LEISA LEGER Facility:[facility] Start: 03-17-2025 End: 03-17-2025 Subsequent hospital visit by physician [facility] Work Phone: Radiology Comment on above: Solitary cyst of rig ht breast [N60.01] Start: 11-07-2024 End: 11-07-2024 ambulatory Leisa S Jolliff Facility:[facility] Start: 11-06-2024 End: 11-06-2024 ambulatory Leisa S Jolliff Facility:[facility] Start: 08-14-2024 End: 08-14-2024 ambulatory Leisa S Jolliff Facility:[facility] Start: 08-11-2024 End: 08-11-2024 Telephone encounter Landy Geronimo APRN.INSIDE POLISHER Work Phone: OB/Gynecology Comment on above: Results Start: 08-01-2024 End: 08-01-2024 ambulatory LEISA LEGER Facility:[facility] Start: 08-01-2024 End: 08-01-2024 Subsequent hospital visit by physician Bone Density [facility] Work Phone: Radiology Comment on above: Encounter for screen ing for osteoporosis [Z13.820] Start: 07-22-2024 End: 07-22-2024 Patient encounter procedure Maryjane Huntley MD Work Phone: OB/Gynecology Comment on above: Cervical high risk H PV (human papillomavirus) test positive (Primary Dx) Start: 07-22-2024 End: 07-22-2024 ambulatory MARYJANE HUNTLEY Facility:[facility] Start: 07-22-2024 End: 07-22-2024 Subsequent hospital visit by physician [facility] 1 Work Phone: Radiology Comment on above: Abnormal mammogram [ R92.8] Start: 07-01-2024 End: 07-01-2024 Orders Only Maryjane Huntley MD Work Phone: OB/Gynecology Comment on above: Cervical high risk H PV (human papillomavirus) test positive (Primary Dx) Start: 06-26-2024 End: 06-26-2024 Telephone encounter Leisa Leger APRN.CNP Work Phone: Mammogram Start: 06-26-2024 ambulatory LEISA LEGER Facility:[facility] Start: 06-26-2024 End: 06-26-2024 Subsequent hospital visit by physician Screen Mammo [facility] Mammogram Comment on above: Arrived Start: 06-18-2024 End: 06-18-2024 ambulatory LEISA LEGER Facility:[facility] Start: 06-18-2024 End: 06-18-2024 Patient encounter procedure Leisa Leger APRN.CNP Work Phone: OB/Gynecology Comment on above: Encounter for gyneco logic examination for high-risk patient covered by Medicare (Primary Dx); Encounter for screening for human papillomavirus (HPV); Pap smear for cervical cancer screening; Encounter for screening mammogram for breast cancer; Encounter for screening for osteoporosis; Asymptomatic postmenopausal status; ASCUS with positive high risk HPV cervical Start: 05-15-2024 End: 05-15-2024 ambulatory [facility] Facility:[facility] Start: 01-23-2024 End: 01-23-2024 ambulatory [facility] Work Phone: Start: 01-23-2024 End: 01-23-2024 Patient encounter procedure [facility] Work Phone: Start: 01-23-2024 End: 01-23-2024 ambulatory [facility] Facility:[facility] Start: 11-19-2023 End: 11-19-2023 ambulatory [facility] Work Phone: Start: 11-19-2023 End: 11-19-2023 Patient encounter procedure [facility] Work Phone: Start: 10-24-2023 End: 10-24-2023 ambulatory [facility] Work Phone: Start: 10-24-2023 End: 10-24-2023 Patient encounter procedure [facility] Work Phone: Start: 03-16-2023 End: 03-16-2023 ambulatory [facility] Work Phone: Start: 03-16-2023 End: 03-16-2023 Patient encounter procedure [facility] Start: 02-07-2023 End: 02-07-2023 Subsequent hospital visit by physician [facility] 1 Work Phone: Radiology Comment on above: Abnormal mammogram [ R92.8] Start: 12-11-2022 End: 12-11-2022 Patient encounter status Screen tr [facility] Start: 12-11-2022 End: 12-11-2022 Subsequent hospital visit by physician Screen Mammo [facility] Mammogram Comment on above: Encounter for gyneco logical examination (general) (routine) without abnormal findings [Z01.419] Start: 09-05-2022 End: 09-05-2022 Patient encounter procedure Maryjane Huntley MD Work Phone: OB/Gynecology Comment on above: ASCUS with positive high risk HPV cervical (Primary Dx) Start: 08-22-2022 Orders Only Leisa CLARKE RN.INSIDE POLISHER Work Phone: OB/Gynecology Comment on above: ASCUS with positive high risk HPV cervical (Primary Dx) Results Start: 08-15-2022 End: 08-15-2022 Patient encounter procedure Leisa Leger APRN.INSIDE POLISHER Work Phone: OB/Gynecology Comment on above: Encounter for gyneco logical examination (general) (routine) without abnormal findings (Primary Dx); Encounter for screening for human papillomavirus (HPV); Pap smear for cervical cancer screening; Encounter for screening mammogram for breast cancer; Encounter for screening for osteoporosis; Asymptomatic postsurgical menopause Start: 08-15-2022 End: 08-15-2022 Patient encounter status Leisa Leger APRN.INSIDE POLISHER Work Phone: OB/Gynecology Start: 08-02-2022 End: 08-02-2022 ambulatory [facility] Work Phone: Start: 08-02-2022 End: 08-02-2022 Patient encounter procedure [facility] Start: 06-21-2022 End: 06-21-2022 ambulatory [facility] Work Phone: Start: 06-21-2022 End: 06-21-2022 Patient encounter procedure [facility] Procedures Date Procedure Procedure Detail Performing Clinician Start: 03-17-2025 Us breast uni real t mirian with image limited Leisa Leger APRN.INSIDE POLISHER Work Phone: Start: 03-17-2025 Digital breast tomosynthesis unilateral Leisa Leger APRN.INSIDE POLISHER Work Phone: Start: 07-22-2024 Us breast uni real t mirian with image limited Leisa Leger APRN.INSIDE POLISHER Work Phone: Start: 07-22-2024 Digital breast tomosynthesis bilateral Leisa Leger APRN.INSIDE POLISHER Work Phone: Start: 02-07-2023 Us breast uni real t mirian with image limited Leisa Leger APRN.CNP Work Phone: Start: 02-07-2023 Digital breast tomosynthesis unilateral Leisa Leger APRN.CNP Work Phone: Start: 12-11-2022 Screening mammograph y bi 2-view breast inc cad Leisa Leger APRN.ALEJANDRA Work Phone: Start: 11-04-2021 Mammography Leisa price APRN.CNP Work Phone: Start: 04-12-2018 Colonoscopy Leisa price APRN.ALEJANDRA Work Phone: Plan of Treatment Date Care Activity Detail Author Start: 09-28-2028 Urine microalbumin profile [facility] Start: 08-15-2027 HPV TESTING HPV TESTING [facility] Start: 08-15-2027 PAP TESTING PAP TESTING [facility] Start: 08-12-2026 HPV TESTING HPV TESTING [facility] Start: 08-12-2026 PAP TESTING PAP TESTING [facility] Start: 07-22-2025 Screening for malign ant neoplasm of breast Mammogram Screening [facility] Start: 06-25-2025 End: 06-25-2025 Patient encounter procedure 06/25/2025 3:00 PM EDT Office Visit OB/Gynecology [address] [place] [address] Leisa Leger APRN.INSIDE POLISHER [address] [place] [id number] Annual OB/Gynecology Comment on above: Annual Start: 06-18-2025 Screening for malign ant neoplasm of cervix Cervical Cancer Screening [facility] Start: 02-13-2025 Covid-19 Vaccine ( season) Covid-19 Vaccine () [facility] Start: 10-08-2024 Advance Directive Discussion Advance Directive Discussion [facility] Start: 08-01-2024 End: 08-01-2024 Patient encounter procedure 08/01/2024 3:25 PM EDT Appointment Radiology [address] [place] [id number] Encounter for screening for osteoporosis [Z13.820]; Asymptomatic postmenopausal status [Z78.0] Radiology Comment on above: Encounter for screen ing for osteoporosis [Z13.820]; Asymptomatic postmenopausal status [Z78.0] Start: 07-22-2024 End: 07-22-2024 Patient encounter procedure Mammogram Comment on above: Diagnostic Bilateral - Requested Orders US Right LTD Comp- Rt 6 month fu Colposcopy Start: 06-26-2024 End: 06-26-2024 Patient encounter procedure 06/26/2024 1:10 PM EDT Appointment Mammogram [address] [place] [address] Encounter for screening mammogram for breast cancer [Z12.31] Mammogram Comment on above: Encounter for screen ing mammogram for breast cancer [Z12.31] Start: 06-08-2024 Covid-19 Vaccine ( season) Covid-19 Vaccine () [facility] Start: 06-08-2024 Covid-19 Vaccine ( season) Covid-19 Vaccine () [facility] Start: 06-08-2024 Influenza vaccination Influenza Vacc ine (#1) [facility] Start: 12-12-2023 Mammography Mammogram Screening [facility] Start: 12-12-2023 Screening for malign ant neoplasm of breast Mammogram Screening [facility] Start: 10-08-2023 Advance Directive Discussion Advance Directive Discussion [facility] Start: 08-15-2023 Screening for malign ant neoplasm of cervix Cervical Cancer Screening [facility] Start: 06-08-2023 Covid-19 Vaccine ( season) Covid-19 Vaccine () [facility] Start: 06-08-2023 Influenza vaccination Influenza Vacc ine (#1) [facility] Start: 04-12-2023 Colonoscopy COLONOSCOPY [facility] Start: 04-12-2023 COLORECTAL CANCER SCREENING COLORECTAL CANCER SCREENING [facility] Start: 04-12-2023 Screening for malign ant neoplasm of colon [facility] Start: 2023 Advance Directive Discussion Advance Directive Discussion [facility] Start: 2023 Bone Density Screening Bone Density Screening [facility] Start: 2023 Pneumococcal Vaccine : 65+ (2 - PCV) Pneumococcal Vaccine: 65+ (2 - PCV) [facility] Start: 2023 Screening for osteoporosis Bone Density Screening [facility] Start: 11-04-2022 Mammography MAMMOGRAM [facility] Start: 10-08-2022 Depression Assessment Depression Ass [facility] Start: 10-08-2021 [facility] Start: 08-06-2021 PNEUMOCOCCAL (2 - PCV) PNEUMOCOCCAL (2 - PCV) [facility] Start: 2018 RSV Vaccine (1 - 1-d ose 60+ series) RSV Vaccine (1 - 1-dose 60+ series) [facility] Start: 09-08-2010 FECAL OCCULT BLOOD FECAL OCCULT BLOO D [facility] Start: 09-08-2010 Screening for malign ant neoplasm of colon Fecal Occult Blood [facility] Start: 2003 COLOGUARD (FIT-DNA) COLOGUARD (FIT-D NA) [facility] Start: [address] COLONOGRAPHY [facility] Start: 2003 DIABETES SCREEN DIABETES SCREEN [facility] Start: 2003 Diabetes Screening Diabetes Screenin g [facility] Start: 2003 Lipid 1996 panel - S alyx or Plasma Lipid Screening [facility] Start: 2003 Lipid panel Lipid Screening [facility] Start: 2003 LIPID SCREEN LIPID SCREEN [facility] Start: 2003 Screening for malign ant neoplasm of colon [facility] Start: 2003 SIGMOIDOSCOPY SIGMOIDOSCOPY [facility] Start: 1976 ANNUAL PCP TEAM PIEROGI MAKER LAURY DISEASE VISIT ANNUAL PCP TEAM CHRONIC DISEASE VISIT [facility] Start: 1976 Depression Screening Depression Scre ening [facility] Start: 1976 HEPATITIS C SCREENING HEPATITIS C [facility] Start: 1976 Hepatitis C screening Hepatitis C [facility] Start: 1976 HIV SCREENING HIV SCREENING [facility] End: 07-18-2025 BD DXA TRABECULAR BONE SCORE (TBS) BD DXA TRABECULAR BONE SCORE (TBS) Radiology Routine Encounter for screening for osteoporosis Asymptomatic postmenopausal status 1 Occurrences starting 06/18/2024 until 07/18/2025 [facility] Comment on above: 1 Occurrences starti ng 06/18/2024 until 07/18/2025 BD DXA TRABECULAR BLANCA NE SCORE (TBS) BD DXA TRABECULAR BONE SCORE (TBS) Radiology Routine Encounter for screening for osteoporosis Asymptomatic postmenopausal status 08/01/2024 3:43 PM EDT [facility] COLPOSCOPY COLPOSCOPY Proce dures Routine ASCUS with positive high risk HPV cervical Ordered: 08/22/2022 [facility] Work Phone: Comment on above: Ordered: 08/22/2022 COLPOSCOPY COLPOSCOPY Proce dures Routine Cervical high risk HPV (human papillomavirus) test positive Ordered: 07/01/2024 [facility] Work Phone: Comment on above: Ordered: 07/01/2024 End: 07-18-2025 DBT Breast - bilateral screening LEE SCREENING W ARIEL Radiology Routine Encounter for screening mammogram for breast cancer 1 Occurrences starting 06/18/2024 until 07/18/2025 [facility] Work Phone: Comment on above: 1 Occurrences starti ng 06/18/2024 until 07/18/2025 End: 09-14-2023 Dxa bone density study 1/> sites axial skel DXA-AXIAL SKELETON Radiology Routine Encounter for gynecological examination (general) (routine) without abnormal findings Encounter for screening for osteoporosis Asymptomatic postsurgical menopause 1 Occurrences starting 08/15/2022 until 09/14/2023 [facility] Work Phone: Comment on above: 1 Occurrences starti ng 08/15/2022 until 09/14/2023 End: 07-18-2025 DXA Skeletal system.axial Views for bone density DXA-AXIAL SKELETON Radiology Routine Encounter for screening for osteoporosis Asymptomatic postmenopausal status 1 Occurrences starting 06/18/2024 until 07/18/2025 [facility] Comment on above: 1 Occurrences starti ng 06/18/2024 until 07/18/2025 DXA Skeletal system.axial Views for bone density DXA-AXIAL SKELETON Radiology Routine Encounter for screening for osteoporosis Asymptomatic postmenopausal status 08/01/2024 3:30 PM EDT [facility] Work Phone: End: 07-26-2025 MG Breast - bilateral Diagnostic LEE DIAGNOSTIC BILATERAL Radiology Routine Abnormal mammogram 1 Occurrences starting 06/26/2024 until 07/26/2025 [facility] Comment on above: 1 Occurrences starti ng 06/26/2024 until 07/26/2025 PAP FLUID CERVICAL SCREENING PAP FLUID CERVICAL SCREENING Lab Routine Encounter for screening for human papillomavirus (HPV) Pap smear for cervical cancer screening 08/15/2022 9:32 AM EST [facility] Work Phone: PAP TEST PAP TEST Lab Pauly lewis Encounter for gynecologic examination for high-risk patient covered by Medicare Encounter for screening for human papillomavirus (HPV) Pap smear for cervical cancer screening ASCUS with positive high risk HPV cervical 06/18/2024 1:49 PM EDT [facility] End: 09-14-2023 Screening mammography bi 2-view breast inc cad LEE SCREENING Radiology Routine Encounter for gynecological examination (general) (routine) without abnormal findings Encounter for screening mammogram for breast cancer 1 Occurrences starting 08/15/2022 until 09/14/2023 [facility] Work Phone: Comment on above: 1 Occurrences starti ng 08/15/2022 until 09/14/2023 SURGICAL PATHOLOGY SURGICAL PATH OLOGY Lab Routine ASCUS with positive high risk HPV cervical Ordered: 09/05/2022 [facility] Work Phone: Comment on above: Ordered: 09/05/2022 SURGICAL PATHOLOGY SURGICAL PATH OLOGY Lab Routine Cervical high risk HPV (human papillomavirus) test positive 07/22/2024 4:02 PM EDT [facility] Work Phone: End: 07-26-2025 US Breast - right limited US BREAST LTD RIGHT Radiology Routine Abnormal mammogram 1 Occurrences starting 06/26/2024 until 07/26/2025 [facility] Work Phone: Comment on above: 1 Occurrences starti ng 06/26/2024 until 07/26/[address] [facility] Immunization Date Immunization Notes Care Provider Araceli youngblood 02-04-2024 pneumococcal conjuga te (PCV20) vaccine, 20 valent (PREVNAR 20) Maryjane Huntley MD Work Phone: [facility] 08-11-2023 respiratory syncytia l virus (RSV) vaccine, adjuvanted (AREXVY) Maryjane Huntley MD Work Phone: [facility] 07-07-2023 influenza (aIIV4) vaccine, age 65+ yr, quadrivalent, PF (FLUAD QUAD) Maryjane Huntley MD Work Phone: [facility] Work Phone: 07-07-2023 influenza virus vacc ine, unspecified formulation Leisa Leger APRN.INSIDE POLISHER Work Phone: [facility] 07-01-2022 influenza, injectabl e, quadrivalent, preservative free Maryjane Huntley MD Work Phone: [facility] Work Phone: 07-01-2022 influenza virus vacc ine, unspecified formulation [facility] Work Phone: [facility] 06-25-2021 influenza, injectabl e, quadrivalent, preservative free Maryjane Huntley MD Work Phone: [facility] Work Phone: 03-18-2021 Human Papillomavirus 9-valent vaccine Leisa Leger APRN.INSIDE POLISHER Work Phone: [facility] 11-17-2020 Human Papillomavirus 9-valent vaccine Leisa Leger APRN.INSIDE POLISHER Work Phone: [facility] 11-10-2020 COVID-19 original vaccine, full dose, monovalent (MODERNA) Leisa Leger APRN.INSIDE POLISHER Work Phone: [facility] 10-15-2020 COVID-19 original vaccine, full dose, monovalent (MODERNA) Leisa Leger APRN.INSIDE POLISHER Work Phone: [facility] 10-07-2020 zoster vaccine recombinant Leisa Leger APRN.INSIDE POLISHER Work Phone: [facility] 09-17-2020 Human Papillomavirus 9-valent vaccine Leisa Leger APRN.INSIDE POLISHER Work Phone: [facility] Work Phone: 08-06-2020 pneumococcal polysaccharide vaccine, 23 valent Leisa Leger APRN.INSIDE POLISHER Work Phone: [facility] 08-06-2020 zoster vaccine recombinant Leisa Leger ASSISTANT EDUCATION DIRECTOR.INSIDE POLISHER Work Phone: [facility] 06-23-2020 influenza virus vacc ine, unspecified formulation Leisa Leger ASSISTANT EDUCATION DIRECTOR.INSIDE POLISHER Work Phone: [facility] 06-21-2020 influenza, injectabl e, quadrivalent, preservative free Leisa Leger ASSISTANT EDUCATION DIRECTOR.INSIDE POLISHER Work Phone: [facility] 07-01-2019 influenza, injectabl e, quadrivalent, preservative free Leisa Leger ASSISTANT EDUCATION DIRECTOR.INSIDE POLISHER Work Phone: [facility] 09-28-2018 tetanus toxoid, redu maxime diphtheria toxoid, and acellular pertussis vaccine, adsorbed Leisa Leger ASSISTANT EDUCATION DIRECTOR.INSIDE POLISHER Work Phone: [facility] 07-14-2018 influenza, injectabl e, quadrivalent, preservative free Leisa Leger ASSISTANT EDUCATION DIRECTOR.INSIDE POLISHER Work Phone: [facility] 10-08-2017 zoster vaccine recombinant Leisa Leger ASSISTANT EDUCATION DIRECTOR.INSIDE POLISHER Work Phone: [facility] 05-12-2016 tetanus toxoid, redu maxime diphtheria toxoid, and acellular pertussis vaccine, adsorbed Leisa Leger ASSISTANT EDUCATION DIRECTOR.INSIDE POLISHER Work Phone: [facility] 07-03-2014 influenza, seasonal, injectable Leisa Leger ASSISTANT EDUCATION DIRECTOR.INSIDE POLISHER Work Phone: [facility] 02-07-2014 zoster vaccine, live Leisa Gut hrie ASSISTANT EDUCATION DIRECTOR.INSIDE POLISHER Work Phone: [facility] 08-04-2009 novel influenza-H1N1 -09, preservative-free, injectable Leisa Leger ASSISTANT EDUCATION DIRECTOR.INSIDE POLISHER Work Phone: [facility] 04-07-1997 measles, mumps and rubella virus vaccine Leisa Leger ASSISTANT EDUCATION DIRECTOR.INSIDE POLISHER Work Phone: [facility] Payers Date Payer Category Payer Self-pay [id number] 2023 Medicare [id number] 2023 Unknown MMO MMO MEDICARE SUPPLEMENT [id number] 2023-Present [phone] [address] [place] [address] Indemnity [id number] 2023 Medicare [id number] 2021 Private Health Insurance [id number] 2012 Unknown [id number] Private Health Insurance [facility] [id number] Unknown [id number] Unknown [id number] Unknown [id number] Unknown [id number] Unknown [id number] Social History Date Type Detail Facility Start: 02-27-2019 End: 02-27-2019 Tobacco smoking status NHIS Unknown if ever smoked [facility] Start: 1960 Sex Assigned At Female [facility] Start: 08-15-2022 Tobacco smoking status NHIS Never smoked tobacco [facility] Work Phone: Start: 08-15-2022 Tobacco use and exposure Smokeless tobacco non-user [facility] Work Phone: Start: 08-15-2022 End: 09-05-2022 Alcohol intake Current drinker of alcohol (finding) [facility] Start: 08-06-2020 History SDOH Social Connections Phone 2 [facility] Start: 08-06-2020 History SDOH Social Connections [employer] 3 [facility] Start: 08-06-2020 History SDOH Social Connections Meetings 1 [facility] Start: 08-06-2020 History SDOH Financial 5 [facility] Start: 08-06-2020 Education 20 [facility] Start: 07-25-2013 Alcohol Comment Occasionally [facility] Start: 1960 Sex Assigned At Not on file [facility] Start: 08-06-2020 End: 02-07-2023 History of Social function [facility] Work Phone: Start: 08-06-2020 End: 02-07-2023 Social connection and isolation panel [facility] Work Phone: Do you belong to any clubs or organizations such as alevism groups, unions, fraternal or athletic groups, or school groups? No [facility] Work Phone: Are you now , , , , never or living with a partner? [facility] Work Phone: How hard is it for y ou to pay for the very basics like food, housing, medical care, and heating Not hard at all [facility] Work Phone: Do you feel stress - tense, restless, nervous, or anxious, or unable to sleep at night because your mind is troubled all the time - these days [OSQ] Not at all [facility] Work Phone: (I/We) worried wheth er (my/our) food would run out before (I/we) got money to buy more. Never true [facility] Work Phone: Start: 08-10-2021 Gender identity Identifies as female gender (finding) [facility] Start: 10-29-2021 Sexual orientation Heterosexual (finding) [facility] Start: 06-14-2018 Non-smoker [facility] Start: 06-18-2024 End: 07-22-2024 Alcoholic beverage intake Ex-drinker (finding) [facility] Functional Status Date Assessment Result Facility 07-30-2014 Are you deaf, or do you have serious difficulty hearing No 07/30/2014 9:53 AM EDT Patricia Maylin [facility] 07-30-2014 Are you blind, or do you have serious difficulty seeing, even when wearing glasses No 07/30/2014 9:53 AM EDT Patricia Maylin [facility] 07-30-2014 Do you have serious difficulty walking or climbing stairs No 07/30/2014 9:53 AM EDT Patricia [facility] 07-30-2014 Do you have difficul ty dressing or bathing No 07/30/2014 9:53 AM EDT Patricia Maylin [facility] 07-30-2014 Because of a physica l, mental, or emotional condition, do you have difficulty doing errands alone such as visiting a physician's office or shopping No 07/30/2014 9:53 AM EDT Patricia [facility] Mental Status Date Assessment Result Facility 07-30-2014 Because of a physica l, mental, or emotional condition, do you have serious difficulty concentrating, remembering, or making decisions No 07/30/2014 9:53 AM EDT Maylin Gomez [facility] Clinical Notes 05-03-2010 to 03-17-2025 Divine Soto RDMS - 03/17/2025 9:30 AM Stephanie Norwood Mammo Tech - 03/17/2025 9:00 AM EDTTelephone Encounter - Chelle Aguirre RN - 08/11/2024 1:47 PM ESTPatient Instructions Note Date & Type Note Facility 03-17-2025 History of Present illness Narrative Radiology Service Progress Note PATIENT NAME: Patti Reyes DATE OF SERVICE: March 17, 2025 TIME: 2:51 PM PATIENT IDENTITY VERIFICATION COMPLETED USING TWO (2) IDENTIFIERS: Name and Date of confirmed by patient verbally. FALL SCREENING: Has the patient had 2 falls in the last year or 1 fall with injury or currently using an Ambulatory Assistive Device (Walker, Cane, Wheelchair, Crutches, etc.)? No PATIENT GENDER DATA: Assigned female at . status: : No status: NO. PATIENT RELEVANT IMPLANT DATA REVIEWED: Not Applicable PATIENT PRESENTS WITH AN IMPLANTABLE OR ATTACHED CAR BRACER: No RADIOLOGY DEPARTMENT: Ultrasound PERIPHERAL IV DATA: Not applicable SIGNED BY: Divine Soto RDMS RVT March 17, 2025 2:51 PM documented in this encounter [facility] 03-17-2025 Note HNO ID: [id number] Author: DIVINE SOTO RDMS Service: ? Author Type: Aboriginal Liaison Officer Type: Progress Notes Filed: 03/17/2025 14:52 Note Text: Radiology Service Progress Note PATIENT NAME: Patti Reyes DATE OF SERVICE: March 17, 2025 TIME: 2:51 PM PATIENT IDENTITY VERIFICATION COMPLETED USING TWO (2) IDENTIFIERS: Name and Date of confirmed by patient verbally. FALL SCREENING: Has the patient had 2 falls in the last year or 1 fall with injury or currently using an Ambulatory Assistive Device (Walker, Cane, Wheelchair, Crutches, etc.)? No PATIENT GENDER DATA: Assigned female at . status: : No status: NO. PATIENT RELEVANT IMPLANT DATA REVIEWED: Not Applicable PATIENT PRESENTS WITH AN IMPLANTABLE OR ATTACHED CAR BRACER: No RADIOLOGY DEPARTMENT: Ultrasound PERIPHERAL IV DATA: Not applicable SIGNED BY: Divine Soto RDMS RVT March 17, 2025 2:51 PM [facility] 03-17-2025 History of Present illness Narrative Radiology Service Progress Note PATIENT NAME: Patti Reyes DATE OF SERVICE: March 17, 2025 TIME: 9:23 AM PATIENT IDENTITY VERIFICATION COMPLETED USING TWO (2) IDENTIFIERS: Name and Date of confirmed by patient verbally. FALL SCREENING: Has the patient had 2 falls in the last year or 1 fall with injury or currently using an Ambulatory Assistive Device (Walker, Cane, Wheelchair, Crutches, etc.)? No PATIENT GENDER DATA: Assigned female at . status: : No status: NO. PATIENT RELEVANT IMPLANT DATA REVIEWED: Not Applicable PATIENT PRESENTS WITH AN IMPLANTABLE OR ATTACHED CAR BRACER: No RADIOLOGY DEPARTMENT: Mammography PERIPHERAL IV DATA: Not applicable SIGNED BY: Kayla Matamoros March 17, 2025 9:23 AM documented in this encounter [facility] 03-17-2025 Note HNO ID: [id number] Author: STEPHANEI PAREDES Mammo Tech Service: ? Author Type: Technologist Type: Progress Notes Filed: 03/17/2025 09:23 Note Text: Radiology Service Progress Note PATIENT NAME: Patti Reyes DATE OF SERVICE: March 17, 2025 TIME: 9:23 AM PATIENT IDENTITY VERIFICATION COMPLETED USING TWO (2) IDENTIFIERS: Name and Date of confirmed by patient verbally. FALL SCREENING: Has the patient had 2 falls in the last year or 1 fall with injury or currently using an Ambulatory Assistive Device (Walker, Cane, Wheelchair, Crutches, etc.)? No PATIENT GENDER DATA: Assigned female at . status: : No status: NO. PATIENT RELEVANT IMPLANT DATA REVIEWED: Not Applicable PATIENT PRESENTS WITH AN IMPLANTABLE OR ATTACHED CAR BRACER: No RADIOLOGY DEPARTMENT: Mammography PERIPHERAL IV DATA: Not applicable SIGNED BY: Kayla Matamoros March 17, 2025 9:23 AM [facility] 08-11-2024 Telephone encounter Note Patient notified. Updated chart with patient's current PCP. Report faxed. Patient has appointment with PCP on Sunday. Chelle Aguirre RN [facility] 08-11-2024 Miscellaneous Notes Patient notified. Updated chart with patient's current PCP. Report faxed. Patient has appointment with PCP on Sunday. Chelle Aguirre RN AG pt-Please let the pt know that her bone density show osteoporosis. I would recommend starting Fosamax or she could discuss other options with her PCP. Landy Geronimo APRN.CNP documented in this encounter [facility] 08-11-2024 Telephone encounter Note AG pt-Please let the pt know that her bone density show osteoporosis. I would recommend starting Fosamax or she could discuss other options with her PCP. Landy Geronimo APRN.CNP [facility] Work Phone: 08-01-2024 History of Present illness Narrative Radiology Service Progress Note PATIENT NAME: Patti Reyes DATE OF SERVICE: August 01, 2024 TIME: 3:24 PM PATIENT IDENTITY VERIFICATION COMPLETED USING TWO (2) IDENTIFIERS: Name and Date of confirmed by patient verbally. FALL SCREENING: Has the patient had 2 falls in the last year or 1 fall with injury or currently using an Ambulatory Assistive Device (Walker, Cane, Wheelchair, Crutches, etc.)? No PATIENT GENDER DATA: Female. status: : No status: NO. PATIENT RELEVANT IMPLANT DATA REVIEWED: Not Applicable PATIENT PRESENTS WITH AN IMPLANTABLE OR ATTACHED CAR BRACER: No RADIOLOGY DEPARTMENT: Bone Density PERIPHERAL IV DATA: Not applicable SIGNED BY: JOSIE Anaya) August 01, 2024 3:24 PM documented in this encounter [facility] 08-01-2024 Note HNO ID: [id number] Author: EULALIA FOLEY RT(R) Service: ? Author Type: Technologist Type: Progress Notes Filed: 08/01/2024 15:32 Note Text: Radiology Service Progress Note PATIENT NAME: Patti Reyes DATE OF SERVICE: August 01, 2024 TIME: 3:24 PM PATIENT IDENTITY VERIFICATION COMPLETED USING TWO (2) IDENTIFIERS: Name and Date of confirmed by patient verbally. FALL SCREENING: Has the patient had 2 falls in the last year or 1 fall with injury or currently using an Ambulatory Assistive Device (Walker, Cane, Wheelchair, Crutches, etc.)? No PATIENT GENDER DATA: Female. status: : No status: NO. PATIENT RELEVANT IMPLANT DATA REVIEWED: Not Applicable PATIENT PRESENTS WITH AN IMPLANTABLE OR ATTACHED CAR BRACER: No RADIOLOGY DEPARTMENT: Bone Density PERIPHERAL IV DATA: Not applicable SIGNED BY: RT Héctor(R) August 01, 2024 3:24 PM [facility] 07-22-2024 History of Present illness Narrative Radiology Service Progress Note PATIENT NAME: Patti Reyes DATE OF SERVICE: July 22, 2024 TIME: 4:40 PM PATIENT IDENTITY VERIFICATION COMPLETED USING TWO (2) IDENTIFIERS: Name and Date of confirmed by patient verbally. FALL SCREENING: Has the patient had 2 falls in the last year or 1 fall with injury or currently using an Ambulatory Assistive Device (Walker, Cane, Wheelchair, Crutches, etc.)? No PATIENT GENDER DATA: Female. status: : No status: NO. PATIENT RELEVANT IMPLANT DATA REVIEWED: Not Applicable PATIENT PRESENTS WITH AN IMPLANTABLE OR ATTACHED CAR BRACER: No RADIOLOGY DEPARTMENT: Ultrasound PERIPHERAL IV DATA: Not applicable SIGNED BY: Diane Abarca RDMS July 22, 2024 4:40 PM documented in this encounter [facility] 07-22-2024 Note HNO ID: [id number] Author: DIANE ABARCA RDMS Service: ? Author Type: Shipbuilding Draftsperson Type: Progress Notes Filed: 07/22/2024 16:40 Note Text: Radiology Service Progress Note PATIENT NAME: Patti Reyes DATE OF SERVICE: July 22, 2024 TIME: 4:40 PM PATIENT IDENTITY VERIFICATION COMPLETED USING TWO (2) IDENTIFIERS: Name and Date of confirmed by patient verbally. FALL SCREENING: Has the patient had 2 falls in the last year or 1 fall with injury or currently using an Ambulatory Assistive Device (Walker, Cane, Wheelchair, Crutches, etc.)? No PATIENT GENDER DATA: Female. status: : No status: NO. PATIENT RELEVANT IMPLANT DATA REVIEWED: Not Applicable PATIENT PRESENTS WITH AN IMPLANTABLE OR ATTACHED CAR BRACER: No RADIOLOGY DEPARTMENT: Ultrasound PERIPHERAL IV DATA: Not applicable SIGNED BY: Diane Abarca RDMS July 22, 2024 4:40 PM [facility] 07-22-2024 Instructions Maylin Gomez MA - 07/22/2024 2:09 PM EDT YOUR RECOVERY It may take a few [...] your doctor's office. documented in this encounter [facility] 07-22-2024 Note HNO ID: [id number] Author: MARYJANE HUNTLEY MD Service: ? Author Type: Physician Type: Progress Notes Filed: 07/22/2024 16:01 Note Text: Carmen is a 64 year old Female who presents today for a colposcopy. The patient's last pap smear was ASCUS with positive HPV-non 16/18 type from June 2024. Patient has a history of abnormal pap: Yes. The patient has had prior treatment: cone bx. 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 Maryjane Huntley M.D. PROCEDURE: EXTERNAL GENITALIA: Normal in appearance without lesions VAGINA: Normal in appearance without lesions, atrophic with flattened epithelium CERVIX: Speculum placed in vagina and excellent visualization of cervix achieved. Cervix swabbed x 3 with 3% acetic acid solution. Cervix very flush with vagina, external os is a dimple visible but difficult to enter w/ endo brusha nd ECC curetteCervix grossly normal. Squamocolumnar junction visualized. acetowhite changes noted 4-7 oclock, punctations noted -none, mosaicism noted 6 oclock , and atypical vasculature noted -none. BIOPSY: Done at 3:00, 6:00, 9:00, and 12:00 ECC: done HEMOSTASIS: Obtained with silver nitrate no lesions noted upper vagina Procedure Summary: Patient tolerated procedure well and colposcopy was adequate. ASSESSMENT: HPV effect PLAN: Specimens labeled and sent to Pathology. Will notify patient of results in 1-2 weeks. Post-procedure instructions reviewed and written material given to the patient. Consider laser or hyst if needs treated, cervix very flush Maryjane Huntley MD [facility] 07-22-2024 History of Present illness Narrative Carmen is a 64 year old Female who presents today for a colposcopy. The patient's last pap smear was ASCUS with positive HPV-non 16/18 type from June 2024. Patient has a history of abnormal pap: Yes. The patient has had prior treatment: cone bx. 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 Maryjane Huntley M.D. PROCEDURE: EXTERNAL GENITALIA: Normal in appearance without lesions VAGINA: Normal in appearance without lesions, atrophic with flattened epithelium CERVIX: Speculum placed in vagina and excellent visualization of cervix achieved. Cervix swabbed x 3 with 3% acetic acid solution. Cervix very flush with vagina, external os is a dimple visible but difficult to enter w/ endo brusha nd ECC curetteCervix grossly normal. Squamocolumnar junction visualized. acetowhite changes noted 4-7 oclock, punctations noted -none, mosaicism noted 6 oclock , and atypical vasculature noted -none. BIOPSY: Done at 3:00, 6:00, 9:00, and 12:00 ECC: done HEMOSTASIS: Obtained with silver nitrate no lesions noted upper vagina Procedure Summary: Patient tolerated procedure well and colposcopy was adequate. ASSESSMENT: HPV effect PLAN: Specimens labeled and sent to Pathology. Will notify patient of results in 1-2 weeks. Post-procedure instructions reviewed and written material given to the patient. Consider laser or hyst if needs treated, cervix very flush Maryjane Huntley MD documented in this encounter [facility] 07-22-2024 History of Present illness Narrative Radiology Service Progress Note PATIENT NAME: Patti Reyes DATE OF SERVICE: July 22, 2024 TIME: 2:39 PM PATIENT IDENTITY VERIFICATION COMPLETED USING TWO (2) IDENTIFIERS: Name and Date of confirmed by patient verbally. FALL SCREENING: Has the patient had 2 falls in the last year or 1 fall with injury or currently using an Ambulatory Assistive Device (Walker, Cane, Wheelchair, Crutches, etc.)? No PATIENT GENDER DATA: Female. status: : No status: NO. PATIENT RELEVANT IMPLANT DATA REVIEWED: Not Applicable PATIENT PRESENTS WITH AN IMPLANTABLE OR ATTACHED CAR BRACER: No RADIOLOGY DEPARTMENT: Mammography PERIPHERAL IV DATA: Not applicable SIGNED BY: Kayla Rwoan July 22, 2024 2:39 PM documented in this encounter [facility] 07-22-2024 Note HNO ID: [id number] Author: RUSS CAMERON Mammo Tech Service: ? Author Type: Shipbuilding Draftsperson Type: Progress Notes Filed: 07/22/2024 14:39 Note Text: Radiology Service Progress Note PATIENT NAME: Patti Reyes DATE OF SERVICE: July 22, 2024 TIME: 2:39 PM PATIENT IDENTITY VERIFICATION COMPLETED USING TWO (2) IDENTIFIERS: Name and Date of confirmed by patient verbally. FALL SCREENING: Has the patient had 2 falls in the last year or 1 fall with injury or currently using an Ambulatory Assistive Device (Walker, Cane, Wheelchair, Crutches, etc.)? No PATIENT GENDER DATA: Female. status: : No status: NO. PATIENT RELEVANT IMPLANT DATA REVIEWED: Not Applicable PATIENT PRESENTS WITH AN IMPLANTABLE OR ATTACHED CAR BRACER: No RADIOLOGY DEPARTMENT: Mammography PERIPHERAL IV DATA: Not applicable SIGNED BY: Russ Cameron Starbak July 22, 2024 2:39 PM [facility] 06-26-2024 Telephone encounter Note Patient needs a diagnostic mammogram for her rt side follow from 02/07/23 and a right breast ultrasound. Please order a Bilateral diagnostic mammogram and rt breast ultrasound for pt. Thank you! [facility] 06-26-2024 Miscellaneous Notes Patient needs a diagnostic mammogram for her rt side follow from 02/07/23 and a right breast ultrasound. Please order a Bilateral diagnostic mammogram and rt breast ultrasound for pt. Thank you! documented in this encounter [facility] 06-18-2024 Instructions Leisa Leger APRN.[facility] - 06/18/2024 1:28 PM EDT BONE MINERAL DENSITY PATIENT INSTRUCTIONS ======= Bone mineral density testing measures the amount of calcium in certain parts of your bones. This information determines how strong your bones are. The test is used to detect osteoporosis, a disease in which the bone's mineral content and density are low, increasing a person's risk of fractures. The lumbar spine (lower back) and the hip are the skeletal sites usually examined. For the test, remember that: 1. You cannot take this test if you are . 2. Eat a normal diet on the day of the test. 3. Take your medications as you normally would. 4. DO NOT take calcium supplements (such as Tums) for 24 hours before the test. 5. On the day of the test, leave valuables (jewelry or credit cards) at home. 6. The test should be performed prior to oral, rectal or IV contrast studies, or at least 7 days after any of these studies. For the test, you may be asked to wear a hospital gown. You will lie on your back, on a padded table, in a comfortable position. Generally, you can resume your usual activities immediately. documented in this encounter [facility] 06-18-2024 Note HNO ID: [id number] Author: LEISA LEGER APRN.CNP Service: ? Author Type: Nurse Practitioner Type: Progress Notes Filed: 06/18/2024 14:16 Note Text: Phthalic Acid Purifier offered: Patient declines. The sensitive examination was discussed with the Patient or Patient's Authorized Tar Roofer. As applicable, any other physician, advance practice provider, medical student, or other health professional student that will be observing or involved in the sensitive examination for educational or training purposes was discussed with the Patient or Authorized Tar Roofer. The Patient or Authorized Tar Roofer has agreed to proceed with the sensitive examination. (Sensitive examination includes inspection and/or palpation of the breasts, pelvis, prostate and anorectal regions) Carmen is a 64 year old who presents for an annual gynecologic exam without complaints. Postmenopausal: Yes since age 53 HRT use: No. HPV vaccine: completed Last Pap: 2021 ASCUS HPV: 2021 positive History of abnormal pap: Yes 2020 ASCUS, HPV +; conization 2017, Colposcopy 09/2020, 2020, 2021- benign Last mammogram: 2022 abnormal right breast cyst History of abnormal mammogram: Yes, calcifications left breast, neg biopsy Sexually active: Not for past 6 months Patient concerns for STD exposure: No. Pain with intercourse: No Postcoital bleeding: No Documentation from previous visit of 08/15/2022 was copied and pasted, documentation has been reviewed and edited as necessary for today's visit. 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: Sexual Activity: Not Currently; Male Contraception: PAST MEDICAL HISTORY 2021: Abnormal glandular Papanicolaou smear of cervix No date: Anemia No date: Contact dermatitis and other eczema, due to unspecified cause 12/12/2005: Diaphragmatic hernia without mention of obstruction or gangrene No date: Hypothyroid No date: Internal hemorrhoids without mention of complication No date: Iron deficiency anemia, unspecified No date: Osteoarthritis No date: Panic disorder without agoraphobia No date: Pure hypercholesterolemia No date: Rectal bleeding No date: Simple or unspecified chronic serous otitis mediaPAST SURGICAL HISTORY 12/01/2005: COLONOSCOPY FLX DX W/COLLJ SPEC WHEN PFRMD 04/12/2018: COLONOSCOPY FLX DX W/COLLJ SPEC WHEN PFRMD Comment: adenomatous polyp, repeat in 5 years 06/20/2018: CONIZATION OF CERVIX; COLD KNIFE/LASER Comment: @ [facility]-Dr. Ramirez 12/12/2005: EGD TRANSORAL BIOPSY SINGLE/MULTIPLE No date: PAST SURGICAL HISTORY OF Comment: breast bx for calicafication X 2 10/2006: PAST SURGICAL HISTORY OF Comment: breast implants 2007: PAST SURGICAL HISTORY OF Comment: breast bx, benign 2021: VAGINOSCOPY 09/2014: WRIST SURGERY HX Comment: left wrist 06/2018: WRIST SURGERY HX Comment: right wrist - arthritic joint mormon FAMILY HISTORY Problem Relation Age of Onset Breast Cancer Mother other (Hypercholesterolemia) Mother breast cancer Hypertension Father hypercholesterolemia Cancer Father bladder other (Heart, pacemaker) Father Hypertension Brother Hypertension Brother Hypertension Brother Ulcerative Colitis Daughter 32 colecotmy Cancer Paternal Aunt bladder, heart-- SOCIAL HISTORY Social History Tobacco Use Smoking status: Never Smokeless tobacco: Never Vaping Use Vaping status: Never Used Substance Use Topics Alcohol use: Not Currently Comment: Occasionally Drug use: No REVIEW OF SYSTEMS Abdomen: No abdominal pain, nausea, vomiting, diarrhea, or constipation. No bloating, early satiety, indigestion, or increased flatulence. Bladder: No dysuria, gross hematuria, urinary frequency, urinary urgency, or incontinence Breast: No breast lumps, nipple d/c, overlying skin changes, redness or skin retraction Allergies and current medication updated:Yes EXAM: BP 120/74 Ht 5' 4 (1.63m) Wt 138 lb (62.6kg) LMP 2010 BMI 23.68 kg/(m2). GENERAL: pleasant, female in no apparent distress HEENT: Normocephalic, atraumatic, mucus membranes moist, and no lesions NECK: Supple, full range of motion, no adenopathy, and thyroid normal DERMATOLOGY: Normal, without lesions, non-icteric, and non-hirsute BREAST: soft, non-tender, symmetric, no dominant mass, normal nipple-areolar complex, no lymphadenopathy, no nipple discharge, and bilateral implants CHEST: Normal inspiratory effort ABDOMEN: soft, non-tender, and no masses PELVIC: external genitalia normal, normal Bartholin's glands, urethra, [place]'s glands, no vulvar lesions, no cervical lesions, physiologic discharge present, normal appearing perineal body and perianal region BIMANUAL: uterus normal size, shape and consistency, no adnexal masses, and non-tender RECTO (more content not included)... [facility] 06-18-2024 History of Present illness Narrative Phthalic Acid Purifier offered: Patient declines. The sensitive examination was discussed with the Patient or Patient's Authorized Tar Roofer. As applicable, any other physician, advance practice provider, medical student, or other health professional student that will be observing or involved in the sensitive examination for educational or training purposes was discussed with the Patient or Authorized Tar Roofer. The Patient or Authorized Tar Roofer has agreed to proceed with the sensitive examination. (Sensitive examination includes inspection and/or palpation of the breasts, pelvis, prostate and anorectal regions) Carmen is a 64 year old who presents for an annual gynecologic exam without complaints. Postmenopausal: Yes since age 53 HRT use: No. HPV vaccine: completed Last Pap: 2021 ASCUS HPV: 2021 positive History of abnormal pap: Yes 2020 ASCUS, HPV +; conization 2017, Colposcopy 09/2020, 2020, 2021- benign Last mammogram: 2022 abnormal right breast cyst History of abnormal mammogram: Yes, calcifications left breast, neg biopsy Sexually active: Not for past 6 months Patient concerns for STD exposure: No. Pain with intercourse: No Postcoital bleeding: No Documentation from previous visit of 08/15/2022 was copied and pasted, documentation has been reviewed and edited as necessary for today's visit. 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: Sexual Activity: Not Currently; Male Contraception: PAST MEDICAL HISTORY 2021: Abnormal glandular Papanicolaou smear of cervix No date: Anemia No date: Contact dermatitis and other eczema, due to unspecified cause 12/12/2005: Diaphragmatic hernia without mention of obstruction or gangrene No date: Hypothyroid No date: Internal hemorrhoids without mention of complication No date: Iron deficiency anemia, unspecified No date: Osteoarthritis No date: Panic disorder without agoraphobia No date: Pure hypercholesterolemia No date: Rectal bleeding No date: Simple or unspecified chronic serous otitis mediaPAST SURGICAL HISTORY 12/01/2005: COLONOSCOPY FLX DX W/COLLJ SPEC WHEN PFRMD 04/12/2018: COLONOSCOPY FLX DX W/COLLJ SPEC WHEN PFRMD Comment: adenomatous polyp, repeat in 5 years 06/20/2018: CONIZATION OF CERVIX; COLD KNIFE/LASER Comment: @ [facility]-Dr. Ramirez 12/12/2005: EGD TRANSORAL BIOPSY SINGLE/MULTIPLE No date: PAST SURGICAL HISTORY OF Comment: breast bx for calicafication X 2 10/2006: PAST SURGICAL HISTORY OF Comment: breast implants 2007: PAST SURGICAL HISTORY OF Comment: breast bx, benign 2021: VAGINOSCOPY 09/2014: WRIST SURGERY HX Comment: left wrist 06/2018: WRIST SURGERY HX Comment: right wrist - arthritic joint mormon FAMILY HISTORY Problem Relation Age of Onset Breast Cancer Mother other (Hypercholesterolemia) Mother breast cancer Hypertension Father hypercholesterolemia Cancer Father bladder other (Heart, pacemaker) Father Hypertension Brother Hypertension Brother Hypertension Brother Ulcerative Colitis Daughter 32 colecotmy Cancer Paternal Aunt bladder, heart-- SOCIAL HISTORY Social History Tobacco Use Smoking status: Never Smokeless tobacco: Never Vaping Use Vaping status: Never Used Substance Use Topics Alcohol use: Not Currently Comment: Occasionally Drug use: No REVIEW OF SYSTEMS Abdomen: No abdominal pain, nausea, vomiting, diarrhea, or constipation. No bloating, early satiety, indigestion, or increased flatulence. Bladder: No dysuria, gross hematuria, urinary frequency, urinary urgency, or incontinence Breast: No breast lumps, nipple d/c, overlying skin changes, redness or skin retraction Allergies and current medication updated:Yes EXAM: BP 120/74 Ht 5' 4 (1.63m) Wt 138 lb (62.6kg) LMP 2010 BMI 23.68 kg/(m^2). GENERAL: pleasant, female in no apparent distress HEENT: Normocephalic, atraumatic, mucus membranes moist, and no lesions NECK: Supple, full range of motion, no adenopathy, and thyroid normal DERMATOLOGY: Normal, without lesions, non-icteric, and non-hirsute BREAST: soft, non-tender, symmetric, no dominant mass, normal nipple-areolar complex, no lymphadenopathy, no nipple discharge, and bilateral implants CHEST: Normal inspiratory effort ABDOMEN: soft, non-tender, and no masses PELVIC: external genitalia normal, normal Bartholin's glands, urethra, [place]'s glands, no vulvar lesions, no cervical lesions, physiologic discharge present, normal appearing perineal body and perianal region BIMANUAL: uterus normal size, shape and consistency, no adnexal masses, and non-tender RECTOVAGINAL: deferred. NEURO: alert and oriented x3,exam grossly non-focal EXTREMITIES: normal ASSESSMENT/PLAN: 1) Health maintenance: Pap done with HPV. Mammogram ordered Nutrition, exercise and routine health maintenance exams reviewed. Calcium/Vitamin D supplementation information provided. Colon cancer screening: up to date with screening BMD: ordered 2) Follow up one year or sooner as needed Leisa Leger APRN.ALEJANDRA documented in this encounter [facility] 02-07-2023 History of Present illness Narrative Radiology Service Progress Note PATIENT NAME: Patti Reyes DATE OF SERVICE: February 07, 2023 [...] IV DATA: Not applicable SIGNED BY: Divine Soto RDMS RVT February 07, 2023 3:42 PM documented in this encounter [facility] 02-07-2023 History of Present illness Narrative Radiology Service Progress Note PATIENT NAME: Patti Reyes DATE OF SERVICE: February 07, 2023 [...] 2023 3:01 PM documented in this encounter [facility] 12-11-2022 History of Present illness Narrative Radiology Service Progress Note PATIENT NAME: Patti Reyes DATE OF SERVICE: December 11, 2022 [...] 2022 9:53 AM documented in this encounter [facility] 09-05-2022 History of Present illness Narrative Phthalic Acid Purifier offered: Patient accepts, visit chaperoned by Margarette LandinNoemy Morales is a 62 year old Female who [...] Maryjane Huntley MD documented in this encounter [facility] 09-05-2022 Instructions Margarette Landin MA - [...] your doctor's office. documented in this encounter [facility] 08-24-2022 Miscellaneous Notes Appointment given. Chelle Aguirre RN Left message for patient to call office. Chelle Aguirre RN ----- Message from Leisa Leger APRN.CNP sent at 08/22/2022 12:16 PM EST ----- Please notify Patti Reyes - Pap ASCUS, HRHPV positive. Needs colposcopy with RR. Colposcopy ordered and placed on problem list. Leisa Leger APRN.CNP documented in this encounter [facility] 08-15-2022 Instructions Leisa Leger APRN.CNP - 08/15/2022 8:20 AM EST Calcium and [...] salmon and sardines and vegetables, such as Czech cabbage, kale, and broccoli. Foods fortified with [...] acid, calcium carbonate is found in some [id number]-[id number] antacid products, such as Tums and Rolaids [...] by your doctor. documented in this encounter [facility] 08-15-2022 History of Present illness Narrative Phthalic Acid Purifier offered: Patient declines. 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-Dr. Ramirez EGD TRANSORAL BIOPSY SINGLE/MULTIPLE 12/12/05 PAST SURGICAL HISTORY OF breast bx for calicafication X 2 PAST SURGICAL HISTORY OF 10/2006 breast implants PAST SURGICAL HISTORY OF 2007 breast bx, benign WRIST SURGERY HX 09/2014 left wrist WRIST SURGERY HX 06/2018 right wrist - arthritic joint mormon FAMILY HISTORY Problem Relation Age of Onset [...] external genitalia normal, normal Bartholin's glands, urethra, [place]'s glands, no vulvar lesions, no cervical lesions, [...] one year or sooner as needed Leisa Leger APRN.ALEJANDRA documented in this encounter [facility] 05-03-2010 History of Past i llness Narrative Problem Noted Date Resolved Date Surveillance of previously prescribed contracept tammie pill 05/03/2010 documented as of this encounter (statuses as of 08/15/2022) [facility] History of Past illness Narrative* Problem Noted Date Resolved Date Surveillance of previously prescribed contracept tammie pill 05/03/2010 documented as of this encounter (statuses as of 08/22/2022) [address]27-2010 History of Past illness Narrative* Problem Noted Date Resolved Date Surveillance of previously prescribed contracept tammie pill 05/03/2010 documented as of this encounter (statuses as of 08/24/2022) [address]27-2010 History of Past illness Narrative* Problem Noted Date Resolved Date Surveillance of previously prescribed contracept tammie pill 05/03/2010 documented as of this encounter (statuses as of 09/05/2022) [address]27-2010 History of Past illness Narrative* Problem Noted Date Diagnosed Date Resolved Date Surveillance of previously p rescribed contraceptive pill 05/03/2010 documented as of this encounter (statuses as of 08/12/2023) [address]27-2010 History of Past illness Narrative* Problem Noted Date Diagnosed Date Resolved Date Surveillance of previously p rescribed contraceptive pill 05/03/2010 documented as of this encounter (statuses as of 08/12/2023) [address]27-2010 History of Past illness Narrative* Problem Noted Date Diagnosed Date Resolved Date Surveillance of previously p rescribed contraceptive pill 05/03/2010 documented as of this encounter (statuses as of 08/12/2023) [facility] noteNo assessment information availableWH[facility] Work Phone: Evaluation note* Diagnosis Encounter for gynecological examination (general) (routine) without abnormal findings- Primary Encounter for screening for human papillomavirus (HPV) Special screening examination for human papillomavirus (HPV) Pap smear for cervical cancer screening Screening for malignant neoplasm of the cervix Encounter for screening mammogram for breast cancer Encounter for screening for osteoporosis Special screening for osteoporosis Asymptomatic postsurgical menopause [facility] Diagnosis ASCUS with positive high risk HPV cervical- Primary Cervical high risk human papillomavirus (HPV) DNA test positive [facility] Diagnosis ASCUS with positive high risk HPV cervical- Primary Cervical high risk human papillomavirus (HPV) DNA test positive [facility] Abnormal [facility]ogram Abnormal mammogram, unspecified [facility] Diagnosis Encounter for gynecological examination (general) (routine) without abnormal findings Encounter for screening mammogram for breast cancer [facility] Diagnosis Abnormal mammogram Abnormal mammogram, unspecified documented in this encounter [facility] note* Diagnosis Encounter for gynecologic examination for high-risk patient covered by Medicare- Primary Routine gynecological examination Encounter for screening for human papillomavirus (HPV) Special screening examination for human papillomavirus (HPV) Pap smear for cervical cancer screening Screening for malignant neoplasm of the cervix Encounter for screening mammogram for breast cancer Encounter for screening for osteoporosis Special screening for osteoporosis Asymptomatic postmenopausal status ASCUS with positive high risk HPV cervical Cervical high risk human papillomavirus (HPV) DNA test positive documented in this encounter [facility] note* Diagnosis Abnormal mammogram- Primary Abnormal mammogram, unspecified documented in this encounter [facility] note* Diagnosis Encounter for screening mammogram for breast cancer documented in this encounter [facility] note* Diagnosis Cervical high risk HPV (human papillomavirus) test positive- Primary Cervical high risk human papillomavirus (HPV) DNA test positive documented in this encounter [facility] note* Diagnosis Cervical high risk HPV (human papillomavirus) test positive- Primary Cervical high risk human papillomavirus (HPV) DNA test positive documented in this encounter [facility] note* Diagnosis Abnormal mammogram Abnormal mammogram, unspecified documented in this encounter [facility] note* Diagnosis Abnormal mammogram Abnormal mammogram, unspecified documented in this encounter [facility] note* Diagnosis Encounter for screening for osteoporosis Special screening for osteoporosis Asymptomatic postmenopausal status documented in this encounter [facility] note* Diagnosis Solitary cyst of right breast Solitary cyst of breast documented in this encounter [facility] note* Diagnosis Solitary cyst of right breast Solitary cyst of breast documented in this encounter [facility] for referral (narrative)* Diagnostic Procedure Only (Routine) - Pending Review Specialty Diagnoses / Procedures Referred By Zaheer t Referred To Contact [facility] Diagnoses Encounter for gynecological examination (general) (routine) without abnormal findings Encounter for screening mammogram for breast cancer Procedures LEE SCREENING SCREENING MAMMOGRAPHY BI 2-VIEW BREAST INC Leisa Mcnamara APRN.INSIDE POLISHER [address] [place] [address] Br Imaging [facility] [place] [address] Referral ID Status Reason Start Date Expiration Date Visits Requested Visits Authorized [id number] Pending Review Auto-Generat ed Referral 08/15/2022 09/14/2023 1 1 [facility] for referral (narrative)* Outpatient Procedure (Routine) - Pending Review Specialty Diagnoses / Procedures Referred By Zaheer santos Referred To Contact [facility] Diagnoses ASCUS with positive high risk HPV cervical Procedures COLPOSCOPY COLPOSCOPY CERVIX BX CERVIX & ENDOCRV CURRETAGE Leisa Leger APRN.CNP [address] [place] [address] [facility] [address] [place] [address] Referral ID Status Reason Start Date Expiration Date Visits Requested Visits Authorized [id number] Pending Review Auto-Generat ed Referral 2 08/22/2023 1 1 [facility] for referral (narrative)* Diagnostic Procedure Only (Routine) - Closed Specialty Diagnoses / Procedures Referred By Zaheer santos Referred To Contact [facility] Diagnoses Abnormal mammogram Procedures US BREAST LTD RT US BREAST UNI REAL TIME WITH IMAGE LIMITED Leisa Leger APRN.INSIDE POLISHER [address] [place] [address] [facility] [address] [place] [address] Referral ID Status Reason Start Date Expiration Date V isits Requested Visits Authorized [id number] Closed Auto-Generate d Referral 12/13/2022 01/12/2024 1 1 [facility] for referral (narrative)* Diagnostic Procedure Only (Routine) - Closed Specialty Diagnoses / Procedures Referred By Zaheer santos Referred To Contact [facility] Diagnoses Encounter for gynecological examination (general) (routine) without abnormal findings Encounter for screening mammogram for breast cancer Procedures LEE SCREENING SCREENING MAMMOGRAPHY BI 2-VIEW BREAST INC CAD Leisa Leger APRN.INSIDE POLISHER [address] [place] [address] [facility] [address] [place] [address] Referral ID Status Reason Start Date Expiration Date V isits Requested Visits Authorized [id number] Closed Auto-Generate d Referral 08/15/2022 09/14/2023 1 1 [facility] for referral (narrative)* Diagnostic Procedure Only (Routine) - Authorized Specialty Diagnoses / Procedures Referred By Tyroneac t Referred To Contact XR IMAGING Diagnoses Encounter for screening for osteoporosis Asymptomatic postmenopausal status Procedures DXA-AXIAL SKELETON DXA BONE DENSITY STUDY / SITES AXIAL Leisa Hastings APRN.INSIDE POLISHER [address] [place] [address] X[facility] Imaging [facility] Referral ID Status Reason Start Date Expiration Date Visits Requested Visits Authorized [id number] Authorized Auto-Generat ed Referral 06/18/2024 07/18/2025 1 1 * Diagnostic Procedure Only (Routine) - Authorized Specialty Diagnoses / Procedures Referred By Zaheer t Referred To Contact [facility] Diagnoses Encounter for screening mammogram for breast cancer Procedures LEE SCREENING W ARIEL SCREENING DIGITAL BREAST TOMOSYNTHESIS BI SCREENING MAMMOGRAPHY BI 2-VIEW BREAST INC Leisa Mcnamara APRN.INSIDE POLISHER [address] [place] [address] Br Imaging [address] [email or web address] [address] Referral ID Status Reason Start Date Expiration Date Visits Requested Visits Authorized [id number] Authorized Auto-Generat ed Referral 06/18/2024 07/18/2025 1 1 [facility] for referral (narrative)* Diagnostic Procedure Only (Routine) - New Request Specialty Diagnoses / Procedures Referred By Contac t Referred To Contact [facility] Diagnoses Abnormal mammogram Procedures LEE DIAGNOSTIC BILATERAL DIAGNOSTIC MAMMOGRAPHY COMPUTER-AIDED DETCJ BI Leisa Leger APRN.INSIDE POLISHER [address] [place] [address] Br Imaging [address] [place] [phone] Referral ID Status Reason Start Date Expiration Date Visits Requested Visits Authorized [id number] New Request Auto-Generat ed Referral 06/26/2024 07/26/2025 1 1 * Diagnostic Procedure Only (Routine) - New Request Specialty Diagnoses / Procedures Referred By Contac t Referred To Contact [facility] Diagnoses Abnormal mammogram Procedures US BREAST LTD RIGHT US BREAST UNI REAL TIME WITH IMAGE LIMITED Leisa Leger APRN.INSIDE POLISHER [address] [place] [address] Br Imaging [address] [place] [phone] Referral ID Status Reason Start Date Expiration Date Visits Requested Visits Authorized [id number] New Request Auto-Generat ed Referral 06/26/2024 07/26/2025 1 1 [facility] for referral (narrative)* Outpatient Procedure (Routine) - Authorized Specialty Diagnoses / Procedures Referred By Tyroneac Referred To Contact [facility] Diagnoses Cervical high risk HPV (human papillomavirus) test positive Procedures COLPOSCOPY COLPOSCOPY CERVIX BX CERVIX & ENDOCRV CURRETAGE Maryjane Huntley MD [address] [place] [address] [facility] [address] [place] [address] Referral ID Status Reason Start Date Expiration Date Visits Requested Visits Authorized [id number] Authorized Auto-Generat ed Referral 07/01/2024 07/01/2025 1 1 [facility] for referral (narrative)* Diagnostic Procedure Only (Routine) - Closed Specialty Diagnoses / Procedures Referred By Zaheer santos Referred To Contact [facility] Diagnoses Abnormal mammogram Procedures US BREAST LTD RIGHT US BREAST UNI REAL TIME WITH IMAGE LIMITED Leisa Leger APRN.INSIDE POLISHER [address] [place] [address] [facility] Imaging [address] [email or web address] [address] Referral ID Status Reason Start Date Expiration Date V isits Requested Visits Authorized [id number] Closed Auto-Generate d Referral 06/26/2024 07/26/2025 1 1 [facility] for visit Narrative* Diagnostic Procedure Only (Routine) - Closed Specialty Diagnoses / Procedures Referred By Zaheer santos Referred To Contact [facility] Diagnoses Encounter for gynecological examination (general) (routine) without abnormal findings Encounter for screening mammogram for breast cancer Procedures LEE SCREENING SCREENING MAMMOGRAPHY BI 2-VIEW BREAST INC CAD Leisa Leger APRN.INSIDE POLISHER [address] [place] [address] Br Imaging [address] [email or web address] [address] Referral ID Status Reason Start Date Expiration Date V isits Requested Visits Authorized [id number] Closed Auto-Generate d Referral 08/15/2022 09/14/2023 1 1 [facility] for visit Narrative* Diagnostic Procedure Only (Routine) - Closed Specialty Diagnoses / Procedures Referred By Zaheer santos Referred To Contact [facility] Diagnoses Abnormal mammogram Procedures LEE DIAGNOSTIC RT DIAGNOSTIC MAMMOGRAPHY COMPUTER-AIDED DETCJ UNI Leisa Leger APRN.INSIDE POLISHER [address] [place] [address] [facility] Imaging [address] [email or web address] [address] Referral ID Status Reason Start Date Expiration Date V isits Requested Visits Authorized [id number] Closed Auto-Generate d Referral 12/13/2022 01/12/2024 1 1 [facility] for visit Narrative* Diagnostic Procedure Only (Routine) - Closed Specialty Diagnoses / Procedures Referred By Zaheer t Referred To Contact [facility] Diagnoses Encounter for screening mammogram for breast cancer Procedures LEE SCREENING W ARIEL SCREENING DIGITAL BREAST TOMOSYNTHESIS BI SCREENING MAMMOGRAPHY BI 2-VIEW BREAST INC CAD Leisa Leger APRN.INSIDE POLISHER [address] [place] [address] [facility] [address] [place] [address] Referral ID Status Reason Start Date Expiration Date V isits Requested Visits Authorized [id number] Closed Auto-Generate d Referral 06/18/2024 07/18/2025 1 1 [facility] for visit Narrative* Diagnostic Procedure Only (Routine) - Closed Specialty Diagnoses / Procedures Referred By Contminnie t Referred To Contact [facility] Diagnoses Abnormal mammogram Procedures LEE DIAGNOSTIC BILATERAL DIAGNOSTIC MAMMOGRAPHY COMPUTER-AIDED DETCJ Leisa Ag APRN.INSIDE POLISHER [address] [place] [address] [facility] [address] [place], [place] [phone] Referral ID Status Reason Start Date Expiration Date V isits Requested Visits Authorized [id number] Closed Auto-Generate d Referral 06/26/2024 07/26/2025 1 1 [facility] for visit Narrative* Diagnostic Procedure Only (Routine) - Closed Specialty Diagnoses / Procedures Referred By Zaheer t Referred To Contact XR IMAGING Diagnoses Encounter for screening for osteoporosis Asymptomatic postmenopausal status Procedures DXA-AXIAL SKELETON DXA BONE DENSITY STUDY 1/> SITES AXIAL SKLeisa Pritchard APRN.INSIDE POLISHER [address] [place] [address] [place] [address] Referral ID Status Reason Start Date Expiration Date V isits Requested Visits Authorized [id number] Closed Auto-Generate d Referral 06/18/2024 07/18/2025 1 1 [facility] for visit Narrative* Diagnostic Procedure Only (Routine) - Closed Specialty Diagnoses / Procedures Referred By Zaheer t Referred To Contact [facility] Diagnoses Solitary cyst of right breast Procedures LEE DIAGNOSTIC RIGHT DIAGNOSTIC MAMMOGRAPHY [employer] Leisa Davis APRN.INSIDE POLISHER [address] [place] [address] Phone: tel: fax: [facility] [address] [place] [address] Referral ID Status Reason Start Date Expiration Date V isits Requested Visits Authorized [id number] Closed Auto-Generate d Referral 01/20/2025 08/21/2025 1 1 [facility] Chief Complaint and Reason for Visit Chief Complaint E ORDER Chief Complaint PAIN- COPY PCP Chief Complaint PAIN- COPY PCP EORDER Advance Directives No Advanced Directives Records Found Advance Directive Response Recorded Date/ Time Living Will Yes June 14, 2 018 3:06pm Power of Implant Polisher Yes June 14, 2018 3:06pm Advance Directive Response Recorded Date/ Time Living Will Yes June 14, 2 018 2:06pm Power of Implant Polisher Yes June 14, 2018 2:06pm Summary Purpose Family History No Family History Records FoundNo Family History Records Found Additional Source Comments Goals (unrecognized section and content) Goals may be documented in a n alternate sectionGoals may be documented in an alternate sectionGoals may be documented in an alternate sectionGoals may be documented in an alternate sectionGoals may be documented in an alternate section Source Comments (unrecognize d section and content) In the event this informatio n is protected by the Federal Confidentiality of Alcohol and Drug Abuse Patient Records regulations: The Federal rules restrict any use of the information to criminally investigate or prosecute any alcohol or drug abuse patient.[facility] the event this information is protected by the Federal Confidentiality of Alcohol and Drug Abuse Patient Records regulations: The Federal rules restrict any use of the information to criminally investigate or prosecute any alcohol or drug abuse patient.[facility] the event this information is protected by the Federal Confidentiality of Alcohol and Drug Abuse Patient Records regulations: The Federal rules restrict any use of the information to criminally investigate or prosecute any alcohol or drug abuse patient.[facility] the event this information is protected by the Federal Confidentiality of Alcohol and Drug Abuse Patient Records regulations: The Federal rules restrict any use of the information to criminally investigate or prosecute any alcohol or drug abuse patient.[facility] the event this information is protected by the Federal Confidentiality of Alcohol and Drug Abuse Patient Records regulations: The Federal rules restrict any use of the information to criminally investigate or prosecute any alcohol or drug abuse patient.[facility] the event this information is protected by the Federal Confidentiality of Alcohol and Drug Abuse Patient Records regulations: The Federal rules restrict any use of the information to criminally investigate or prosecute any alcohol or drug abuse patient.[facility] the event this information is protected by the Federal Confidentiality of Alcohol and Drug Abuse Patient Records regulations: The Federal rules restrict any use of the information to criminally investigate or prosecute any alcohol or drug abuse patient.[facility] the event this information is protected by the Federal Confidentiality of Alcohol and Drug Abuse Patient Records regulations: The Federal rules restrict any use of the information to criminally investigate or prosecute any alcohol or drug abuse patient.[facility] the event this information is protected by the Federal Confidentiality of Alcohol and Drug Abuse Patient Records regulations: The Federal rules restrict any use of the information to criminally investigate or prosecute any alcohol or drug abuse patient.[facility] the event this information is protected by the Federal Confidentiality of Alcohol and Drug Abuse Patient Records regulations: The Federal rules restrict any use of the information to criminally investigate or prosecute any alcohol or drug abuse patient.[facility] the event this information is protected by the Federal Confidentiality of Alcohol and Drug Abuse Patient Records regulations: The Federal rules restrict any use of the information to criminally investigate or prosecute any alcohol or drug abuse patient.[facility] the event this information is protected by the Federal Confidentiality of Alcohol and Drug Abuse Patient Records regulations: The Federal rules restrict any use of the information to criminally investigate or prosecute any alcohol or drug abuse patient.[facility] the event this information is protected by the Federal Confidentiality of Alcohol and Drug Abuse Patient Records regulations: The Federal rules restrict any use of the information to criminally investigate or prosecute any alcohol or drug abuse patient.[facility] the event this information is protected by the Federal Confidentiality of Alcohol and Drug Abuse Patient Records regulations: The Federal rules restrict any use of the information to criminally investigate or prosecute any alcohol or drug abuse patient.[facility] Center[facility] the event this information is protected by the Federal Confidentiality of Alcohol and Drug Abuse Patient Records regulations: The Federal rules restrict any use of the information to criminally investigate or prosecute any alcohol or drug abuse patient.[facility] Center[facility] the event this information is protected by the Federal Confidentiality of Alcohol and Drug Abuse Patient Records regulations: The Federal rules restrict any use of the information to criminally investigate or prosecute any alcohol or drug abuse patient.[facility] Center[facility] the event this information is protected by the Federal Confidentiality of Alcohol and Drug Abuse Patient Records regulations: The Federal rules restrict any use of the information to criminally investigate or prosecute any alcohol or drug abuse patient.[facility] CenterIn the event this information is protected by the Federal Confidentiality of Alcohol and Drug Abuse Patient Records regulations: The Federal rules restrict any use of the information to criminally investigate or prosecute any alcohol or drug abuse patient.[facility] Reason for Visit (unrecogniz ed section and content) Reason Comments Well Woman Reason Comments Results Reason Comments Colposcopy Specialty Diagnoses / Procedures Referred By Contac t Referred To Contact [facility] Diagnoses ASCUS with positive high risk HPV cervical Procedures COLPOSCOPY COLPOSCOPY CERVIX BX CERVIX & ENDOCRV CURRETAGE Leisa Leger APRN.INSIDE POLISHER [address] [place] [address] [facility] [address] [place] [address] Referral ID Status Reason Start Date Expiration Date V isits Requested Visits Authorized [id number] Closed Auto-Generate d Referral 08/25/2022 10/06/2022 1 1 Reason Comments Radiology US Specialty Diagnoses / Procedures Referred By Contac t Referred To Contact [facility] Diagnoses Abnormal mammogram Procedures US BREAST LTD RT US BREAST UNI REAL TIME WITH IMAGE LIMITED Leisa Leger APRN.INSIDE POLISHER [address] [place] [address] [facility] [address] [place] [address] Referral ID Status Reason Start Date Expiration Date V isits Requested Visits Authorized [id number] Closed Auto-Generate d Referral 12/13/2022 01/12/2024 1 1 Reason Comments Well Woman Reason Comments Colposcopy Specialty Diagnoses / Procedures Referred By Contac t Referred To Contact [facility] Diagnoses Cervical high risk HPV (human papillomavirus) test positive Procedures COLPOSCOPY COLPOSCOPY CERVIX BX CERVIX & ENDOCRV CURRETAGE Maryjane Huntley MD [address] [place] [address] [facility] [address] [place] [address] Referral ID Status Reason Start Date Expiration Date V isits Requested Visits Authorized [id number] Closed Auto-Generate d Referral 07/01/2024 07/01/2025 1 1 Specialty Diagnoses / Procedures Referred By Contac t Referred To Contact [facility] Diagnoses Abnormal mammogram Procedures US BREAST LTD RIGHT US BREAST UNI REAL TIME WITH IMAGE LIMITED Leisa Leger APRN.INSIDE POLISHER [address] [place] [address] [facility] [address] [place] [address] Referral ID Status Reason Start Date Expiration Date V isits Requested Visits Authorized [id number] Closed Auto-Generate d Referral 06/26/2024 07/26/2025 1 1 Specialty Diagnoses / Procedures Referred By Contac t Referred To Contact [facility] Diagnoses Solitary cyst of right breast Procedures US BREAST LTD RIGHT US BREAST UNI REAL TIME WITH IMAGE LIMITED Leisa Leger APRN.INSIDE POLISHER [address] [place] [address] Phone: tel: fax: [facility] [address] [place] [address] Referral ID Status Reason Start Date Expiration Date V isits Requested Visits Authorized [id number] Closed Auto-Generate d Referral 01/20/2025 08/21/2025 1 1 Care Teams (unrecognized sec tion and content) Admission Nurse Coordinator Relationship Specialty Start Date End Date Carlos Tate MD [address] [place] [id number] PCP - General 11/24/03 Admission Nurse Coordinator Relationship Specialty Start Date End Date Carlos Tate MD [address] [place], [place] [address] [place], [place] [id number] PCP - General 11/24/03 Admission Nurse Coordinator Relationship Specialty Start Date End Date Carlos Tate MD [address] [place] [id number] PCP - General 11/24/03 Admission Nurse Coordinator Relationship Specialty Start Date End Date Carlos Tate MD [address] [place], [place] [address] PCP - General 11/24/03 Team Status: Active Member Role Status Dates Dr. Carlos Tate MD Family Provider Active Dr. Leisa Blount MD Primary Care Provider Active Team Status: Inactive Member Role Status Dates Dr. Leisa Blount MD Primary Care Provider Active Dr. Shakira Santa MD Attending Provider, Referring Provider Active Admission Nurse Coordinator Relationship Specialty Start Date End Date Carlos Tate MD [address] [place], [place] [address] PCP - General 11/24/03 Admission Nurse Coordinator Relationship Specialty Start Date End Date Carlos Tate MD [address] [facility] [place], [place] [id number] PCP - General 11/24/03 Admission Nurse Coordinator Relationship Specialty Start Date End Date Carlos Tate MD [address] [place], [place] [id number] PCP - General 11/24/03 Team Status: Inactive Member Role Status Dates Dr. Leisa Blount MD Primary Care Provider Active Dr. Fran Peña MD Attending Provider, Referring P liliana Active Team Status: Inactive Member Role Status Dates Dr. Leisa Blount MD Primary Care Prov ider, Attending Provider, Referring Provider Active Admission Nurse Coordinator Relationship Specialty Start Date End Date Carlos Tate MD [address] [place], [place] [address] PCP - General 11/24/03 Admission Nurse Coordinator Relationship Specialty Start Date End Date Carlos Tate MD [address] [place] [address] PCP - General 11/24/03 Admission Nurse Coordinator Relationship Specialty Start Date End Date Carlos Tate MD [address] [place] [address] PCP - General 11/24/03 Admission Nurse Coordinator Relationship Specialty Start Date End Date Carlos Tate MD [address] [place] [address] PCP - General 11/24/03 Admission Nurse Coordinator Relationship Specialty Start Date End Date Carlos Tate MD [address] [place] [address] PCP - General 11/24/03 Admission Nurse Coordinator Relationship Specialty Start Date End Date Carlos Tate MD [address] [place] [address] PCP - General 11/24/03 Admission Nurse Coordinator Relationship Specialty Start Date End Date Carlos Tate MD [address] [place] [address] PCP - General 11/24/03 Admission Nurse Coordinator Relationship Specialty Start Date End Date Carlos Tate MD [address] [place] [address] PCP - General 11/24/03 Admission Nurse Coordinator Relationship Specialty Start Date End Date Leisa Blount [address] [place] [address] PCP - General Family Medicine 08/11/24 Admission Nurse Coordinator Relationship Specialty Start Date End Date Leisa Blount [address] [place] [address] PCP - General Family Medicine 08/11/24 Admission Nurse Coordinator Relationship Specialty Start Date End Date Leisa Blount [address] [place] [address] PCP - General Family Medicine 08/11/24 INFORMATION SOURCE (unrecogn ized section and content) DATE CREATED AUTHOR 11/27/2024 [facility] DATE CREATED AUTHOR AUTHOR'S ORGANIZ ATION 03/18/2025 [facility] FOR RECORDS PERTAINING TO PATIENTS WHO ARE [...] BE BASED ON THE PRIMARY CLINICAL RECORDS. [employer] provides no warranty or guarantee of the accuracy or completeness of information in this document.
== END | disposition home or self-care (01) ==
LOC: MTLAB 10:04
PROVIDERS: PCP Family Medicine; Referring Provider Internal Medicine Rheumatology; Visit Provider Internal Medicine Rheumatology
DX: M06.4 Inflammatory polyarthropathy (principal); Z79.899 Other long term (current) drug therapy; M15.9 Polyosteoarthritis, unspecified
CPT/HCPCS: 36415; 80053; 85025

== ENCOUNTER → 2025-08-19 | Outpatient (CLI) | payer MEDICARE, OTHER, SELFPAY ==
[2025-08-19 09:21] LABS: Ionized Calcium Order ORDER TUBE
[2025-08-19 10:19] LABS: Hematocrit 35.8 % (37-47); Hemoglobin 12.5 g/dL (12.0-15.0); Mean Corp Hgb Conc 34.9 g/dL (32-36); Mean Corpuscular Volume 92.5 fL (81-99); Mean Platelet Vol. 11.3 fl (6.2-12.0); Platelet Count 288 K/mm3 (150-450); RBC Distribution Width CV 12.4 % (11.6-14.6); RBC Distribution Width SD 42.5 fl (35.1-43.9); Red Blood Count 3.87 M/mm3 (4.2-5.4); White Blood Count 8.6 K/mm3 (4.4-11.0)
[2025-08-19 10:44] LABS: PTHIN 73 pg/mL (11-61)
[2025-08-19 11:02] LABS: AST(SGOT) 22 U/L (<=31); Alanine Aminotransfer ALT/SGPT 15 U/L (<=34); Albumin, Serum 4.1 g/dL (3.4-4.8); Alkaline Phosphatase 82 U/L (35-104); Anion Gap 10 (5-15); BUN 13 mg/dL (4-19); BUN/Creat Ratio 24.2 RATIO (10-20); Calcium,Total 10.2 mg/dL (7.6-11.0); Carbon Dioxide 29.3 mmol/L (21.0-32.0); Chloride 104 mmol/L (98-108); Cholesterol 177 mg/dL (<=200); Globulin 3.0 g/dL (2.2-4.2); Glucose 100 mg/dL (70-99); Low Density Lipoprotein Calc. 95 mg/dL; Potassium 3.5 mmol/L (3.3-5.1); Triglycerides 78 mg/dL; Very Low Density Lipoprotein 16 mg/dL (5-40); cholesterol:hdl ratio screen 2.62
[2025-08-19 11:28] LABS: Iron 78 ug/dL (50-170); Magnesium 2.2 mg/dL (1.5-2.2)
[2025-08-20 13:07] LABS: Vitamin D,25 Hydroxy 55.4 ng/mL (30-100)
== END | disposition home or self-care (01) ==
LOC: MFPLAB 08:19
PROVIDERS: PCP Family Medicine; Visit Provider Family Medicine
DX: E03.9 Hypothyroidism, unspecified (principal); M81.0 Age-related osteoporosis without current pathological fracture; I10 Essential (primary) hypertension; E78.00 Pure hypercholesterolemia, unspecified
CPT/HCPCS: 36415; 80053; 80061; 82306; 82330; 83540; 83735; 83970; 84100; 84439; 84443; 85027